=== PATIENT | female | born 1990 | race Hispanic/Latino ===

== ENCOUNTER 2016-10-11 21:45 | Inpatient (IN) | payer OTHER ==
[2016-10-11 22:37] LABS: RBC URINE 9 /hpf (0-3); TRANSITIONAL EPITHIAL < 1 /hpf (0-3); URINE BACTERIA OCC (<OCC); URINE BILIRUBIN NEGATIVE (NEGATIVE); URINE BLOOD 1+ (NEGATIVE); URINE COLOR Yellow (YELLOW); URINE GLUCOSE (UA) NORMAL (Normal); URINE KETONE TRACE mg/dL (NEGATIVE); URINE PROTEIN NEGATIVE (NEGATIVE); URINE UROBILINOGEN NORMAL mg/dL (0.2-1.0); WBC URINE 9 /hpf (0-5)
[2016-10-11 22:40] LABS: URINE LEUKOCYTE ESTERASE 1+ Leu/uL (Negative)
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
[2016-10-11] MEDS ORDERED: Sodium Chloride 0.9% 1,000 ML IV ONE (22:49)
[2016-10-11 23:46] LABS: CHLORIDE 99 mmol/L (98-107); INR 1.2
[2016-10-11 23:47] LABS: POTASSIUM 4.2 mmol/L (3.6-5.2); SODIUM 141 mmol/L (132-148)
[2016-10-11 23:49] LABS: ALB/GLOB RATIO 1.1 (1.0-2.1); AST/SGOT 24 U/L (14-36); BILIRUBIN,TOTAL 0.5 mg/dL (0.2-1.3); CARBON DIOXIDE 25 mmol/L (22-30); GFR AFRICAN-AMERICAN > 60; TOTAL PROTEIN 7.4 g/dL (6.3-8.3)
[2016-10-11 23:50] LABS: ALCOHOL SERUM < 10 mg/dl (0-10); ALKALINE PHOSPHATASE 65 U/L (38-126); ALT/SGPT 39 U/L (9-52); BLOOD UREA NITROGEN 15 mg/dL (7-17); CALCIUM 8.9 mg/dl (8.6-10.4); GLUCOSE,RANDOM 116 mg/dL (65-105)
[2016-10-12 00:03] LABS: BASO % 0.2 % (0.0-2.0); EOS # 0.1 K/uL (0.0-0.7); EOS % 0.4 % (0.0-4.0); HEMATOCRIT 40.2 % (34.0-47.0); LYMPH # 1.3 K/uL (1.0-4.3); LYMPH % 5.8 % (20.0-40.0); MEAN CELL VOLUME 80.8 fL (81.0-99.0); MEAN CORPUSCULAR HEMOGLOBIN 26.1 pg (27.0-31.0); MEAN CORPUSCULAR HGB CONC 32.3 g/dL (33.0-37.0); MEAN PLATELET VOLUME 8.2 fL (7.2-11.7); MONO # 0.7 K/uL (0.0-0.8); MONO % 3.3 % (0.0-10.0); PLATELET COUNT 521 K/uL (130-400); RED CELL DISTRIBUTION WIDTH 15.1 % (11.5-14.5)
[2016-10-12] MEDS ORDERED: Morphine 4 MG/ML VIAL ONE ×5 (00:46→21:14)
[2016-10-12] MEDS ORDERED: Iodixanol 320 MG/ML 100 ML BOTTLE IV ONE (01:34)
[2016-10-12 01:52] LABS: METAMYELOCYTE 1 % (0-0); NEUTROPHIL 91 % (50-75); TOTAL CELLS COUNTED 100
--- NOTE | 2016-10-12 02:45 | CT ---
EXAM: CT Abdomen and Pelvis With Intravenous Contrast CLINICAL HISTORY: 26 years old, female; Pain; Abdominal pain and other: Pancreatitis, ? pseudocyst; Patient HX: 02-25-16 TECHNIQUE: Axial computed tomography images of the abdomen and pelvis with intravenous contrast. This CT exam was performed using one or more of the following dose reduction techniques: automated exposure control, adjustment of the mA and/or kV according to patient size, and/or use of iterative reconstruction technique. Coronal and sagittal reformatted images were created and reviewed. CONTRAST: 100 mL of [id number] administered intravenously. COMPARISON: No relevant prior studies available. FINDINGS: Lower thorax: The bilateral lung bases are clear. ABDOMEN: Liver: No acute findings. Gallbladder and bile ducts: The gallbladder is decompressed. No calcified stones. No significant intrahepatic biliary ductal dilation. Pancreas: Originating in the head of the pancreas, and extending anteriorly is an irregular thickwalled multilobulated focus of fluid attenuation with surrounding free fluid and inflammatory change. This focus measures 65.5 x 59.5 mm (anterior-posterior by medial to lateral dimension). No significant pancreatic ductal enlargement. Limited evaluation of the common bile duct. Spleen: No acute findings. Adrenals: No acute findings. Kidneys and ureters: No acute findings. No hydronephrosis or renal calculi. No discrete solid mass. Subcentimeter foci of fluid attenuation within the right kidney, statistically representing cysts. PELVIS: Bladder: No acute findings. Reproductive: No acute findings. Appendix: The air filled appendix is of normal caliber (series 2, image 54; series 601, image 46) . ABDOMEN and PELVIS: Stomach and bowel: No obstruction. No mucosal thickening. Peritoneum: As above. Lymph nodes: No pathologically enlarged lymph nodes. Vasculature: Unremarkable. Bones: No acute fracture. IMPRESSION: Findings along the head of the pancreas suggesting immature pseudocyst formation, as detailed above
[2016-10-12] MEDS ORDERED: Dextrose 5%/0.45% NS 1,000 ML IV ONE (03:15)
[2016-10-12] MEDS ORDERED: Dextrose 5%/0.45% NS 1,000 ML IV SCH (03:15)
[2016-10-12 07:24] LABS: CHOLESTEROL 114 mg/dL (0-199)
[2016-10-12] MEDS ORDERED: Lactated Ringer's 1,000 ML ONE (10:10)
[2016-10-12] MEDS: Enoxaparin 40 mg Syringe SC SCH (10:20)
[2016-10-12] MEDS: Lactated Ringer's 1,000 ML IV SCH ×3 (10:25→19:19)
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
[2016-10-12] MEDS: Aztreonam 1 GM in Sodium Chloride 0.9% 100 ML IVPB SCH ×2 (15:45→22:11)
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
[2016-10-12] MEDS: metroNIDAZOLE IV 500 mg/100 ml 500 MG/100 ML BAG IVPB SCH (19:35)
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
[2016-10-13] MEDS ORDERED: Morphine 4 MG/ML VIAL ONE (02:11)
[2016-10-13] MEDS: Morphine 4 MG/ML VIAL IVP PRN ×5 (02:12→23:13)
[2016-10-13] MEDS: metroNIDAZOLE IV 500 mg/100 ml 500 MG/100 ML BAG IVPB SCH ×3 (02:16→18:55)
[2016-10-13] MEDS: Lactated Ringer's 1,000 ML IV SCH ×2 (05:33→18:17)
[2016-10-13] MEDS: Aztreonam 1 GM in Sodium Chloride 0.9% 100 ML IVPB SCH ×3 (06:19→22:01)
[2016-10-13 08:27] LABS: CHLORIDE 100 mmol/L (98-107); POTASSIUM 3.6 mmol/L (3.6-5.2); SODIUM 137 mmol/L (132-148)
[2016-10-13 08:28] LABS: BASO % 0.4 % (0.0-2.0); EOS # 0.2 K/uL (0.0-0.7); EOS % 1.8 % (0.0-4.0); HEMATOCRIT 31.9 % (34.0-47.0); LYMPH # 1.7 K/uL (1.0-4.3); LYMPH % 15.8 % (20.0-40.0); MEAN CELL VOLUME 80.2 fL (81.0-99.0); MEAN CORPUSCULAR HEMOGLOBIN 26.8 pg (27.0-31.0); MEAN CORPUSCULAR HGB CONC 33.5 g/dL (33.0-37.0); MONO # 0.9 K/uL (0.0-0.8); MONO % 7.9 % (0.0-10.0); RED CELL DISTRIBUTION WIDTH 14.8 % (11.5-14.5)
[2016-10-13 08:29] LABS: ALB/GLOB RATIO 0.9 (1.0-2.1); ALKALINE PHOSPHATASE 45 U/L (38-126); AST/SGOT 16 U/L (14-36); BILIRUBIN,TOTAL 0.5 mg/dL (0.2-1.3); BLOOD UREA NITROGEN 7 mg/dL (7-17); CARBON DIOXIDE 26 mmol/L (22-30); GFR AFRICAN-AMERICAN > 60; TOTAL PROTEIN 5.5 g/dL (6.3-8.3)
[2016-10-13 08:30] LABS: ALT/SGPT 32 U/L (9-52); CALCIUM 7.9 mg/dl (8.6-10.4); GLUCOSE,RANDOM 94 mg/dL (65-105)
[2016-10-13] MEDS: Enoxaparin 40 mg Syringe SC SCH (09:45)
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
[2016-10-13] MEDS: POLYETHYLENE GLYCOL 3350 17 GM/Dose PACKET PO SCH (12:00)
--- NOTE | 2016-10-13 13:39 | RAD ---
HISTORY: COMPARISON: No prior. TECHNIQUE: Chest PA and lateral FINDINGS: LINES AND TUBES: None. LUNG AND PLEURA: There is left lower lobe airspace disease and small left pleural effusion. The right lung is clear. There is no pneumothorax. HEART AND MEDIASTINUM: The heart is not enlarged. The hilar and mediastinal contours are within normal limits. SKELETAL STRUCTURES: The bony structures are within normal limits for the patient's age. VISUALIZED UPPER ABDOMEN: Normal. OTHER FINDINGS: None. IMPRESSION: Left lower lobe pneumonia and small left pleural effusion. Follow-up after medical management is recommended to ensure complete resolution.
--- NOTE | 2016-10-13 22:31 | CP.PCM.PN ---
Subjective - Date & Time of Evaluation Date of Evaluation: 10/13/16 Time of Evaluation: 15:25 - Subjective Subjective: Pt seen and evalauted still c/o periumbilical pain Objective - Vital Signs/Intake and Output Vital Signs (last 24 hours): Temp Pulse Resp BP Pulse Ox 98.6 F 70 20 94/67 L 96 10/13/16 16:58 10/13/16 16:58 10/13/16 16:58 10/13/16 16:58 10/13/16 16:58 Intake and Output: 10/13/16 10/14/16 18:59 06:59 Intake Total 1300 1400 Balance 1300 1400 - Medications Medications: Current Medications Enoxaparin Sodium (Lovenox) 40 mg SC DAILY [facility] Last Admin: 10/13/16 09:45 Dose: 40 mg Famotidine (Pepcid) 20 mg IVP Q12 [facility] Last Admin: 10/13/16 21:12 Dose: 20 mg Lactated Ringer's (Lactated Ringer's) 1,000 mls @ 200 mls/hr IV .Q5H [facility] Last Admin: 10/13/16 18:17 Dose: 200 mls/hr Aztreonam 1 gm/ Sodium (Chloride) 100 mls @ 100 mls/hr IVPB Q8H [facility] Last Admin: 10/13/16 22:01 Dose: 100 mls/hr Metronidazole (Flagyl) 500 mg in 100 mls @ 100 mls/hr IVPB Q8H [facility] Last Admin: 10/13/16 18:55 Dose: 100 mls/hr Metoclopramide HCl (Reglan) 10 mg IVP Q8 PRN PRN Reason: Nausea/Vomiting Last Admin: 10/12/16 16:57 Dose: 10 mg Morphine Sulfate (Morphine) 2 mg IVP Q4 PRN PRN Reason: Pain, severe (8-10) Last Admin: 10/13/16 19:19 Dose: 2 mg Ondansetron HCl (Zofran Inj) 4 mg IVP Q4H PRN PRN Reason: Nausea/Vomiting Last Admin: 10/13/16 06:22 Dose: 4 mg Polyethylene Glycol (Miralax) 17 gm PO DAILY [facility] Last Admin: 10/13/16 12:00 Dose: 17 gm - Labs Labs: 10/13/16 08:04 10/13/16 08:04 PT 13.6 SECONDS (9.7-12.2) H 10/11/16 23:34 INR 1.2 10/11/16 23:34 APTT 28 SECONDS (21-34) 10/11/16 23:34
[2016-10-14] MEDS: metroNIDAZOLE IV 500 mg/100 ml 500 MG/100 ML BAG IVPB SCH ×3 (01:42→17:38)
[2016-10-14] MEDS: Lactated Ringer's 1,000 ML IV SCH ×3 (01:43→16:54)
[2016-10-14] MEDS: Morphine 4 MG/ML VIAL IVP PRN ×5 (03:55→21:51)
[2016-10-14] MEDS: Aztreonam 1 GM in Sodium Chloride 0.9% 100 ML IVPB SCH ×3 (06:04→22:22)
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
[2016-10-14] MEDS: POLYETHYLENE GLYCOL 3350 17 GM/Dose PACKET PO SCH (10:45)
[2016-10-14] MEDS: Enoxaparin 40 mg Syringe SC SCH (10:45)
[2016-10-14 11:28] LABS: BASO % 0.5 % (0.0-2.0); EOS # 0.2 K/uL (0.0-0.7); EOS % 2.2 % (0.0-4.0); HEMATOCRIT 33.9 % (34.0-47.0); LYMPH # 1.1 K/uL (1.0-4.3); LYMPH % 12.1 % (20.0-40.0); MEAN CELL VOLUME 80.8 fL (81.0-99.0); MEAN CORPUSCULAR HEMOGLOBIN 26.9 pg (27.0-31.0); MEAN CORPUSCULAR HGB CONC 33.3 g/dL (33.0-37.0); MEAN PLATELET VOLUME 8.1 fL (7.2-11.7); MONO # 0.6 K/uL (0.0-0.8); MONO % 7.3 % (0.0-10.0); WHITE BLOOD COUNT 8.8 K/uL (4.8-10.8)
[2016-10-14 11:34] LABS: CHLORIDE 98 mmol/L (98-107); POTASSIUM 3.5 mmol/L (3.6-5.2); SODIUM 138 mmol/L (132-148)
[2016-10-14 11:37] LABS: BLOOD UREA NITROGEN 4 mg/dL (7-17); CARBON DIOXIDE 28 mmol/L (22-30); GFR AFRICAN-AMERICAN > 60
[2016-10-14 11:38] LABS: CALCIUM 8.3 mg/dl (8.6-10.4); GLUCOSE,RANDOM 105 mg/dL (65-105)
--- NOTE | 2016-10-14 13:56 | CP.PCM.PN ---
Subjective - Date & Time of Evaluation Date of Evaluation: 10/14/16 Time of Evaluation: 13:56 - Subjective Subjective: CHIEF COMPLAINTS TODAY : afebrile Still has abd pain LUQ and epigastric area tolerating liquid diet Denies having a BM ROS HEENT : N. Resp : No SOB wheezing, cough Cardio : No CP, PND orthopnea GI : +VE ABDOMINAL PAIN, NO n/v CANDLE WICKER : No headache , focal deficit. Musculoskel : N Ext. : Pedal pulses intact, no edema or calf pain Derm : N Psych : N. PE. Pt. is alert awake in no distress. V.S As noted in the chart Head ,ear nose,throat and eyes : Normal. Neck : Supple with normal carotids. Lungs: Clear air entry. Heart : S1 & S2 normal . . No murmur. S4 + Abd : Soft tender +VE ABDOMINAL PAIN.LUQ,EPIGASTRIUM. Neuro : Moves all ext. with no localized deficit. Ext : No edema with intact pulses. Neg. calf tenderness Derm : No rashes or decubitus ulcer. Radiology/Labs . wbc 8.8 h/h 11.3/33.9 plt 319. ESR .30. CREAT 0.6/BUN 4 CXR 10/12 left lower lobe pneumonia with small left pleural effusion. Objective - Vital Signs/Intake and Output Vital Signs (last 24 hours): Temp Pulse Resp BP Pulse Ox 98.7 F 79 18 102/68 99 10/14/16 07:20 10/14/16 07:20 10/14/16 07:20 10/14/16 07:20 10/14/16 07:20 Intake and Output: 10/14/16 10/14/16 06:59 18:59 Intake Total 1400 Balance 1400 - Medications Medications: Current Medications Enoxaparin Sodium (Lovenox) 40 mg SC DAILY [facility] Last Admin: 10/14/16 10:45 Dose: 40 mg Famotidine (Pepcid) 20 mg IVP Q12 [facility] Last Admin: 10/14/16 10:45 Dose: 20 mg Lactated Ringer's (Lactated Ringer's) 1,000 mls @ 200 mls/hr IV .Q5H [facility] Last Admin: 10/14/16 05:15 Dose: Not Given Aztreonam 1 gm/ Sodium (Chloride) 100 mls @ 100 mls/hr IVPB Q8H [facility] Last Admin: 10/14/16 06:04 Dose: 100 mls/hr Metronidazole (Flagyl) 500 mg in 100 mls @ 100 mls/hr IVPB Q8H [facility] Last Admin: 10/14/16 11:05 Dose: 100 mls/hr Metoclopramide HCl (Reglan) 10 mg IVP Q8 PRN PRN Reason: Nausea/Vomiting Last Admin: 10/12/16 16:57 Dose: 10 mg Morphine Sulfate (Morphine) 2 mg IVP Q4 PRN PRN Reason: Pain, severe (8-10) Last Admin: 10/14/16 12:48 Dose: 2 mg Ondansetron HCl (Zofran Inj) 4 mg IVP Q4H PRN PRN Reason: Nausea/Vomiting Last Admin: 10/13/16 06:22 Dose: 4 mg Polyethylene Glycol (Miralax) 17 gm PO DAILY [facility] Last Admin: 10/14/16 10:45 Dose: Not Given - Labs Labs: 10/14/16 11:22 10/14/16 11:22 PT 13.6 SECONDS (9.7-12.2) H 10/11/16 23:34 INR 1.2 10/11/16 23:34 APTT 28 SECONDS (21-34) 10/11/16 23:34 Assessment and Plan (1) Abdominal pain Status: Acute (2) Acute pancreatitis Status: Acute (3) Nausea Status: Acute (4) Vomiting Status: Acute - Assessment and Plan (Free Text) Assessment: IMPRESSION; ABDOMINAL PAIN ACUTE PANCREATITIS MATURING PSEUDOCYST LEFT LOWER LOBE PNEUMONIA/EFFUSION.. UTI.( +VE GPC ) PLAN; CONTINUE IV AZACTAM 1GM IV Q 8HRLY. 10/12/16. ON IV FLAGYL FOR ANAEROBIC COVERAGE.10/12/16. add iv vancomycin 1 g IV piggyback once a day daily. 10/14/16 Follow-up Vanco trough level prior to the fourth dose. Monitor renal functions closely. Follow-up chest x-ray for clearing. FOLLOW-UP CULTURES TO ADJUST ANTIBIOTICS. Case discussed with the staff.
--- NOTE | 2016-10-14 23:37 | CP.PCM.PN ---
Subjective - Date & Time of Evaluation Date of Evaluation: 10/14/16 Time of Evaluation: 09:00 - Subjective Subjective: afebrile Still has abd pain LUQ and epigastric area tolerating liquid diet Denies having a BM Objective - Vital Signs/Intake and Output Vital Signs (last 24 hours): Temp Pulse Resp BP Pulse Ox 97.4 F L 75 20 102/68 93 L 10/14/16 16:18 10/14/16 16:18 10/14/16 16:18 10/14/16 16:18 10/14/16 16:18 Intake and Output: 10/14/16 10/15/16 18:59 06:59 Intake Total 600 Balance 600 - Medications Medications: Current Medications Enoxaparin Sodium (Lovenox) 40 mg SC DAILY [facility] Last Admin: 10/14/16 10:45 Dose: 40 mg Famotidine (Pepcid) 20 mg IVP Q12 [facility] Last Admin: 10/14/16 21:50 Dose: 20 mg Lactated Ringer's (Lactated Ringer's) 1,000 mls @ 200 mls/hr IV .Q5H [facility] Last Admin: 10/14/16 16:54 Dose: 200 mls/hr Aztreonam 1 gm/ Sodium (Chloride) 100 mls @ 100 mls/hr IVPB Q8H [facility] Last Admin: 10/14/16 22:22 Dose: 100 mls/hr Metronidazole (Flagyl) 500 mg in 100 mls @ 100 mls/hr IVPB Q8H [facility] Last Admin: 10/14/16 17:38 Dose: 100 mls/hr Vancomycin/Sodium Chloride (Vancocin) 1 gm in 200 mls @ 133 mls/hr IVPB Q24H [facility] Stop: 10/19/16 23:01 Metoclopramide HCl (Reglan) 10 mg IVP Q8 PRN PRN Reason: Nausea/Vomiting Last Admin: 10/12/16 16:57 Dose: 10 mg Morphine Sulfate (Morphine) 2 mg IVP Q4 PRN PRN Reason: Pain, severe (8-10) Last Admin: 10/14/16 21:51 Dose: 2 mg Ondansetron HCl (Zofran Inj) 4 mg IVP Q4H PRN PRN Reason: Nausea/Vomiting Last Admin: 10/14/16 18:24 Dose: 4 mg Polyethylene Glycol (Miralax) 17 gm PO DAILY [facility] Last Admin: 10/14/16 10:45 Dose: Not Given - Labs Labs: 10/14/16 11:22 10/14/16 11:22 PT 13.6 SECONDS (9.7-12.2) H 10/11/16 23:34 INR 1.2 10/11/16 23:34 APTT 28 SECONDS (21-34) 10/11/16 23:34
[2016-10-14] MEDS: Vancomycin 1 gm/NS 200 ml 1 GM/200 ML BAG IVPB SCH (23:43)
[2016-10-15] MEDS: Lactated Ringer's 1,000 ML IV SCH ×4 (01:15→18:46)
[2016-10-15] MEDS: Morphine 4 MG/ML VIAL IVP PRN ×2 (02:02→06:19)
[2016-10-15] MEDS: metroNIDAZOLE IV 500 mg/100 ml 500 MG/100 ML BAG IVPB SCH ×3 (02:05→17:37)
[2016-10-15] MEDS: Aztreonam 1 GM in Sodium Chloride 0.9% 100 ML IVPB SCH ×3 (06:25→22:31)
[2016-10-15 06:32] LABS: BASO % 0.6 % (0.0-2.0); EOS # 0.2 K/uL (0.0-0.7); EOS % 2.7 % (0.0-4.0); HEMATOCRIT 32.8 % (34.0-47.0); LYMPH # 1.1 K/uL (1.0-4.3); LYMPH % 15.4 % (20.0-40.0); MEAN CELL VOLUME 79.8 fL (81.0-99.0); MEAN CORPUSCULAR HEMOGLOBIN 26.9 pg (27.0-31.0); MEAN CORPUSCULAR HGB CONC 33.7 g/dL (33.0-37.0); MONO # 0.5 K/uL (0.0-0.8); MONO % 7.1 % (0.0-10.0); RED CELL DISTRIBUTION WIDTH 14.9 % (11.5-14.5); WHITE BLOOD COUNT 7.2 K/uL (4.8-10.8)
[2016-10-15 06:44] LABS: ALB/GLOB RATIO 1.3 (1.0-2.1); ALKALINE PHOSPHATASE 76 U/L (38-126); ALT/SGPT 35 U/L (9-52); AST/SGOT 28 U/L (14-36); BILIRUBIN,DIRECT 0.3 mg/dL (0.0-0.4); BILIRUBIN,TOTAL 0.4 mg/dL (0.2-1.3); BLOOD UREA NITROGEN 5 mg/dL (7-17); CALCIUM 8.1 mg/dl (8.6-10.4); CARBON DIOXIDE 25 mmol/L (22-30); CHLORIDE 98 mmol/L (98-107); GFR AFRICAN-AMERICAN > 60; GLUCOSE,RANDOM 79 mg/dL (65-105); POTASSIUM 3.6 mmol/L (3.6-5.2); SODIUM 136 mmol/L (132-148); TOTAL PROTEIN 5.4 g/dL (6.3-8.3)
[2016-10-15] MEDS: Enoxaparin 40 mg Syringe SC SCH (09:34)
[2016-10-15] MEDS: POLYETHYLENE GLYCOL 3350 17 GM/Dose PACKET PO SCH (09:35)
--- NOTE | 2016-10-15 09:38 | CP.PCM.PN ---
Subjective - Date & Time of Evaluation Date of Evaluation: 10/15/16 Time of Evaluation: 09:29 - Subjective Subjective: Patient seen and examined. No acute events overnight, she is seen resting in bed comfortably. She continues to endorse severe generalized abdominal pain, 9/ 10 intensity and lack of appetite. She denies nausea, vomiting, fever/chills. Review of vitals from today are normal. 12 point review of systems performed, negative aside from mentioned above. Objective - Vital Signs/Intake and Output Vital Signs (last 24 hours): Temp Pulse Resp BP Pulse Ox 98.3 F 68 18 99/61 L 98 10/15/16 08:43 10/15/16 08:43 10/15/16 08:43 10/15/16 08:43 10/15/16 08:43 - Medications Medications: Current Medications Enoxaparin Sodium (Lovenox) 40 mg SC DAILY [facility] [place] Last Admin: 10/14/16 10:45 Dose: 40 mg Famotidine (Pepcid) 20 mg IVP Q12 [facility] Last Admin: 10/14/16 21:50 Dose: 20 mg Aztreonam 1 gm/ Sodium (Chloride) 100 mls @ 100 mls/hr IVPB Q8H [facility] [place] Last Admin: 10/15/16 06:25 Dose: 100 mls/hr Metronidazole (Flagyl) 500 mg in 100 mls @ 100 mls/hr IVPB Q8H [facility] [place] Last Admin: 10/15/16 02:05 Dose: 100 mls/hr Vancomycin/Sodium Chloride (Vancocin) 1 gm in 200 mls @ 133 mls/hr IVPB Q24H [facility] [place] Stop: 10/19/16 23:01 Last Admin: 10/14/16 23:43 Dose: 133 mls/hr Metoclopramide HCl (Reglan) 10 mg IVP Q8 PRN PRN Reason: Nausea/Vomiting Last Admin: 10/12/16 16:57 Dose: 10 mg Morphine Sulfate (Morphine) 2 mg IVP Q4 PRN PRN Reason: Pain, severe (8-10) Last Admin: 10/15/16 06:19 Dose: 2 mg Ondansetron HCl (Zofran Inj) 4 mg IVP Q4H PRN PRN Reason: Nausea/Vomiting Last Admin: 10/14/16 18:24 Dose: 4 mg Polyethylene Glycol (Miralax) 17 gm PO DAILY [facility] Last Admin: 10/14/16 10:45 Dose: Not Given - Labs Labs: 10/15/16 06:22 10/15/16 06:22 PT 13.6 SECONDS (9.7-12.2) H 10/11/16 23:34 INR 1.2 10/11/16 23:34 APTT 28 SECONDS (21-34) 10/11/16 23:34 - Constitutional Appears: Non-toxic, No Acute Distress - Head Exam Head Exam: NORMAL INSPECTION - Eye Exam Eye Exam: EOMI, Normal appearance - ENT Exam ENT Exam: Mucous Membranes Moist - Respiratory Exam Respiratory Exam: Clear to Ausculation Bilateral - Cardiovascular Exam Cardiovascular Exam: REGULAR RHYTHM, +S1, +S2 - GI/Abdominal Exam GI & Abdominal Exam: Soft, Tenderness, Normal Bowel Sounds Additional comments: generalized tenderness to palpation, most prominent in liliane-umbilical region with +guarding - Extremities Exam Extremities Exam: Normal Inspection - Skin Skin Exam: Dry, Intact, Normal Color, Warm Assessment and Plan - Assessment and Plan (Free Text) Assessment: Abdominal pain - acute pancreatitis - etiology unclear CT imaging reviewed by me showing multilobulated liliane-pancreatic fluid collection near head without PD dilation UTI Pneumonia Plan: - Continue with liquid diet as tolerated - Pain control - Continue with antibiotic therapy as per ID - Awaiting IGG4 results - Patient is unlikely candidate for FNA of liliane-pancreatic fluid collection due to immature pseudocyst formation, though will discuss with Dr. Nunez - Genetic hereditary pancreatitis testing should be considered as an outpatient - Will continue to monitor patient clinical course
[2016-10-15] MEDS ORDERED: Morphine 4 MG/ML VIAL IVP PRN (11:13)
[2016-10-15] MEDS: Morphine 4 MG/ML VIAL IV PRN ×3 (11:46→20:41)
--- NOTE | 2016-10-15 12:00 | CP.PCM.PN ---
Subjective - Date & Time of Evaluation Date of Evaluation: 10/15/16 Time of Evaluation: 12:00 - Subjective Subjective: CHIEF COMPLAINTS TODAY : afebrile Still has abd pain LUQ and epigastric area tolerating liquid diet DENIES SHORTNESS OF BREATH OR COUGH dENIES CHEST PAIN ROS HEENT : N. 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 Musculoskel : N Ext. : Pedal pulses intact, no edema or calf pain Derm : N Psych : N. PE. Pt. is alert awake in no distress. V.S As noted in the chart Head ,ear nose,throat and eyes : Normal. Neck : Supple with normal carotids. Lungs: DIMINISHED BREATH SOUNDS AT THE BASES Heart : S1 & S2 normal . . No murmur. S4 + Abd : Soft tender +VE ABDOMINAL PAIN.LUQ,EPIGASTRIUM. Neuro : Moves all ext. with no localized deficit. Ext : No edema with intact pulses. Neg. calf tenderness Derm : No rashes or decubitus ulcer. Radiology/Labs . urine culture positive for MRSA. LIPASE 3636. ESR .30. CREAT 0.6/BUN 4 CXR 10/12 left lower lobe pneumonia with small left pleural effusion. Objective - Vital Signs/Intake and Output Vital Signs (last 24 hours): Temp Pulse Resp BP Pulse Ox 98.3 F 68 18 99/61 L 98 10/15/16 08:43 10/15/16 08:43 10/15/16 08:43 10/15/16 08:43 10/15/16 08:43 - Medications Medications: Current Medications Enoxaparin Sodium (Lovenox) 40 mg SC DAILY [facility] Last Admin: 10/15/16 09:34 Dose: 40 mg Famotidine (Pepcid) 20 mg IVP Q12 [facility] Last Admin: 10/15/16 09:34 Dose: 20 mg Aztreonam 1 gm/ Sodium (Chloride) 100 mls @ 100 mls/hr IVPB Q8H [facility] Last Admin: 10/15/16 06:25 Dose: 100 mls/hr Metronidazole (Flagyl) 500 mg in 100 mls @ 100 mls/hr IVPB Q8H [facility] Last Admin: 10/15/16 09:35 Dose: 100 mls/hr Vancomycin/Sodium Chloride (Vancocin) 1 gm in 200 mls @ 133 mls/hr IVPB Q24H [facility] Stop: 10/19/16 23:01 Last Admin: 10/14/16 23:43 Dose: 133 mls/hr Metoclopramide HCl (Reglan) 10 mg IVP Q8 PRN PRN Reason: Nausea/Vomiting Last Admin: 10/12/16 16:57 Dose: 10 mg Morphine Sulfate (Morphine) 2 mg IV Q4 PRN PRN Reason: Pain, severe (8-10) Last Admin: 10/15/16 11:46 Dose: 2 mg Ondansetron HCl (Zofran Inj) 4 mg IVP Q4H PRN PRN Reason: Nausea/Vomiting Last Admin: 10/14/16 18:24 Dose: 4 mg Polyethylene Glycol (Miralax) 17 gm PO DAILY [facility] Last Admin: 10/15/16 09:35 Dose: Not Given - Labs Labs: 10/15/16 06:22 10/15/16 06:22 PT 13.6 SECONDS (9.7-12.2) H 10/11/16 23:34 INR 1.2 10/11/16 23:34 APTT 28 SECONDS (21-34) 10/11/16 23:34 Assessment and Plan (1) Abdominal pain Status: Acute (2) Acute pancreatitis Status: Acute (3) Nausea Status: Acute (4) Vomiting Status: Acute - Assessment and Plan (Free Text) Assessment: IMPRESSION; ABDOMINAL PAIN ACUTE PANCREATITIS MATURING PSEUDOCYST LEFT LOWER LOBE PNEUMONIA/EFFUSION.. UTI.( +VE mrsa) PLAN; CONTINUE IV AZACTAM 1GM IV Q 8HRLY. 10/12/16. ON IV FLAGYL FOR ANAEROBIC COVERAGE.10/12/16. ON IV VANCOMYCIN 1 G ONCE A DAY DAILY STARTED 10/14/16 Follow-up Vanco trough level prior to the fourth dose. Monitor renal functions closely. CONTACT PRECAUTIONS. CASE DISCUSSED WITH THE STAFF. Follow-up chest x-ray for clearing. FOLLOW-UP CULTURES TO ADJUST ANTIBIOTICS.
[2016-10-15] MEDS: Vancomycin 1 gm/NS 200 ml 1 GM/200 ML BAG IVPB SCH (23:58)
[2016-10-16] MEDS: Morphine 4 MG/ML VIAL IV PRN ×5 (00:55→20:35)
[2016-10-16] MEDS: Lactated Ringer's 1,000 ML IV SCH ×3 (02:10→20:34)
[2016-10-16] MEDS: metroNIDAZOLE IV 500 mg/100 ml 500 MG/100 ML BAG IVPB SCH ×3 (02:11→17:37)
[2016-10-16] MEDS: Aztreonam 1 GM in Sodium Chloride 0.9% 100 ML IVPB SCH ×3 (06:06→22:12)
--- NOTE | 2016-10-16 08:22 | CP.PCM.PN ---
Subjective - Date & Time of Evaluation Date of Evaluation: 10/15/16 Time of Evaluation: 21:20 - Subjective Subjective: Pt seen and examined is on antibiotics Objective - Vital Signs/Intake and Output Vital Signs (last 24 hours): Temp Pulse Resp BP Pulse Ox 98.2 F 73 20 107/71 96 10/16/16 04:20 10/16/16 04:20 10/16/16 04:20 10/16/16 04:20 10/16/16 04:20 Intake and Output: 10/16/16 10/16/16 06:59 18:59 Intake Total 1300 Balance 1300 - Medications Medications: Current Medications Enoxaparin Sodium (Lovenox) 40 mg SC DAILY [facility] Last Admin: 10/15/16 09:34 Dose: 40 mg Famotidine (Pepcid) 20 mg IVP Q12 [facility] Last Admin: 10/15/16 22:32 Dose: 20 mg Aztreonam 1 gm/ Sodium (Chloride) 100 mls @ 100 mls/hr IVPB Q8H [facility] Last Admin: 10/16/16 06:06 Dose: 100 mls/hr Metronidazole (Flagyl) 500 mg in 100 mls @ 100 mls/hr IVPB Q8H [facility] Last Admin: 10/16/16 02:11 Dose: 100 mls/hr Vancomycin/Sodium Chloride (Vancocin) 1 gm in 200 mls @ 133 mls/hr IVPB Q24H [facility] Stop: 10/19/16 23:01 Last Admin: 10/15/16 23:58 Dose: 133 mls/hr Metoclopramide HCl (Reglan) 10 mg IVP Q8 PRN PRN Reason: Nausea/Vomiting Last Admin: 10/12/16 16:57 Dose: 10 mg Morphine Sulfate (Morphine) 3 mg IV Q4 PRN PRN Reason: Pain, severe (8-10) Last Admin: 10/16/16 05:19 Dose: 3 mg Ondansetron HCl (Zofran Inj) 4 mg IVP Q4H PRN PRN Reason: Nausea/Vomiting Last Admin: 10/14/16 18:24 Dose: 4 mg Polyethylene Glycol (Miralax) 17 gm PO DAILY [facility] Last Admin: 10/15/16 09:35 Dose: Not Given - Labs Labs: 10/15/16 06:22 10/15/16 06:22 PT 13.6 SECONDS (9.7-12.2) H 10/11/16 23:34 INR 1.2 10/11/16 23:34 APTT 28 SECONDS (21-34) 10/11/16 23:34 - Constitutional Appears: No Acute Distress - Head Exam Head Exam: ATRAUMATIC, NORMAL INSPECTION, NORMOCEPHALIC - Eye Exam Eye Exam: EOMI, Normal appearance, PERRL Pupil Exam: NORMAL ACCOMODATION, PERRL - Respiratory Exam Respiratory Exam: Clear to Ausculation Bilateral, NORMAL BREATHING PATTERN - Cardiovascular Exam Cardiovascular Exam: REGULAR RHYTHM, +S1, +S2. absent: Murmur - GI/Abdominal Exam GI & Abdominal Exam: Tenderness - Rectal Exam Rectal Exam: Deferred Assessment and Plan (1) Abdominal pain Assessment & Plan: IMPRESSION; ABDOMINAL PAIN ACUTE PANCREATITIS MATURING PSEUDOCYST LEFT LOWER LOBE PNEUMONIA/EFFUSION.. UTI.( +VE mrsa) PLAN; CONTINUE IV AZACTAM 1GM IV Q 8HRLY. 10/12/16. ON IV FLAGYL FOR ANAEROBIC COVERAGE.10/12/16. ON IV VANCOMYCIN 1 G ONCE A DAY DAILY STARTED 10/14/16 Follow-up Vanco trough level prior to the fourth dose. Monitor renal functions closely. CONTACT PRECAUTIONS. CASE DISCUSSED WITH THE STAFF. Follow-up chest x-ray for clearing. FOLLOW-UP CULTURES TO ADJUST ANTIBIOTICS. Status: Acute (2) Acute pancreatitis Status: Acute (3) Diarrhea Status: Acute (4) Nausea Status: Acute
[2016-10-16] MEDS: POLYETHYLENE GLYCOL 3350 17 GM/Dose PACKET PO SCH (10:05)
[2016-10-16] MEDS: Enoxaparin 40 mg Syringe SC SCH (10:05)
[2016-10-16] MEDS ORDERED: Propofol 10 mg/ml Inj (20 ML) ONE ×2 (14:20→14:55)
[2016-10-16] MEDS ORDERED: Midazolam 2 MG/2 ML VIAL ONE (14:21)
--- NOTE | 2016-10-16 15:59 | CP.PCM.PN ---
Subjective - Date & Time of Evaluation Date of Evaluation: 10/16/16 Time of Evaluation: 15:58 - Subjective Subjective: CHIEF COMPLAINTS TODAY : afebrile Still has abd pain LUQ and epigastric area SEEN S/P EUS TODAY 10/16/16 ROS HEENT : N. 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 Musculoskel : N Ext. : Pedal pulses intact, no edema or calf pain Derm : N Psych : N. PE. Pt. is alert awake in no distress. V.S As noted in the chart Head ,ear nose,throat and eyes : Normal. Neck : Supple with normal carotids. Lungs: DIMINISHED BREATH SOUNDS AT THE BASES Heart : S1 & S2 normal . . No murmur. S4 + Abd : Soft tender +VE ABDOMINAL PAIN.LUQ,EPIGASTRIUM. Neuro : Moves all ext. with no localized deficit. Ext : No edema with intact pulses. Neg. calf tenderness Derm : No rashes or decubitus ulcer. Radiology/Labs . urine culture positive for MRSA. LIPASE 3636. ESR .30. CREAT 0.6/BUN 4 CXR 10/12 left lower lobe pneumonia with small left pleural effusion. Objective - Vital Signs/Intake and Output Vital Signs (last 24 hours): Temp Pulse Resp BP Pulse Ox 97 F L 89 21 129/69 100 10/16/16 14:23 10/16/16 15:55 10/16/16 15:55 10/16/16 15:55 10/16/16 15:55 Intake and Output: 10/16/16 10/16/16 06:59 18:59 Intake Total 1300 1800 Balance 1300 1800 - Medications Medications: Current Medications Enoxaparin Sodium (Lovenox) 40 mg SC DAILY [facility] Last Admin: 10/16/16 10:05 Dose: Not Given Famotidine (Pepcid) 20 mg IVP Q12 [facility] Last Admin: 10/16/16 09:59 Dose: 20 mg Aztreonam 1 gm/ Sodium (Chloride) 100 mls @ 100 mls/hr IVPB Q8H [facility] Last Admin: 10/16/16 06:06 Dose: 100 mls/hr Metronidazole (Flagyl) 500 mg in 100 mls @ 100 mls/hr IVPB Q8H [facility] Last Admin: 10/16/16 09:56 Dose: 100 mls/hr Vancomycin/Sodium Chloride (Vancocin) 1 gm in 200 mls @ 133 mls/hr IVPB Q24H [facility] Stop: 10/19/16 23:01 Last Admin: 10/15/16 23:58 Dose: 133 mls/hr Metoclopramide HCl (Reglan) 10 mg IVP Q8 PRN PRN Reason: Nausea/Vomiting Last Admin: 10/12/16 16:57 Dose: 10 mg Morphine Sulfate (Morphine) 3 mg IV Q4 PRN PRN Reason: Pain, severe (8-10) Last Admin: 10/16/16 09:55 Dose: 3 mg Ondansetron HCl (Zofran Inj) 4 mg IVP Q4H PRN PRN Reason: Nausea/Vomiting Last Admin: 10/14/16 18:24 Dose: 4 mg Polyethylene Glycol (Miralax) 17 gm PO DAILY [facility] Last Admin: 10/16/16 10:05 Dose: Not Given - Labs Labs: 10/15/16 06:22 10/15/16 06:22 PT 13.6 SECONDS (9.7-12.2) H 10/11/16 23:34 INR 1.2 10/11/16 23:34 APTT 28 SECONDS (21-34) 10/11/16 23:34 Assessment and Plan (1) Abdominal pain Status: Acute (2) Acute pancreatitis Status: Acute (3) Nausea Status: Acute (4) Vomiting Status: Acute - Assessment and Plan (Free Text) Assessment: IMPRESSION; ABDOMINAL PAIN ACUTE PANCREATITIS MATURING PSEUDOCYST LEFT LOWER LOBE PNEUMONIA/EFFUSION.. UTI.( +VE mrsa) PLAN; F/U EUS FINDINGS PER GI. CONTINUE IV AZACTAM 1GM IV Q 8HRLY. 10/12/16. ON IV FLAGYL FOR ANAEROBIC COVERAGE.10/12/16. ON IV VANCOMYCIN 1 G ONCE A DAY DAILY STARTED 10/14/16 Follow-up Vanco trough level prior to the fourth dose. Monitor renal functions closely. CONTACT PRECAUTIONS. CASE DISCUSSED WITH THE STAFF. Follow-up chest x-ray for clearing.
--- NOTE | 2016-10-16 17:08 | US ---
HISTORY: eval gallbladder, saw sludge on EUS, eval pancreas COMPARISON: CT abdomen and pelvis from 10/12/2016 TECHNIQUE: Sonographic evaluation of the abdomen. FINDINGS: LIVER: Measures 12.8 cm. There is diffuse increased echogenicity of the liver parenchyma. No mass. No intrahepatic bile duct dilatation. GALLBLADDER: Gallbladder is filled with sludge. No definite evidence of gallstones, wall thickening or pericholecystic fluid. COMMON BILE DUCT: Measures 7.3 mm. No stones. No dilatation. PANCREAS: There is a 7.9 x 6.6 x 9.8 cm cyst with central thick linear increased echogenicity anteriorly in the head of the pancreas RIGHT KIDNEY: Measures 11.4cm. Normal echogenicity. No calculus, mass, or hydronephrosis. LEFT KIDNEY: Measures 11.8cm. Normal echogenicity. No calculus, mass, or hydronephrosis. SPLEEN: Normal in size and contour. No mass. AORTA: No aneurysmal dilatation. IVC: Unremarkable. OTHER FINDINGS: None. IMPRESSION: 1. 7.9 x 6.6 x 9.8 cm complex pseudocyst in the head of the pancreas. 2. Sludge filled gallbladder. 3. Fatty liver.
--- NOTE | 2016-10-16 22:54 | CP.PCM.PN ---
Subjective - Date & Time of Evaluation Date of Evaluation: 10/16/16 Time of Evaluation: 20:10 - Subjective Subjective: FEELS ABDOMINAL PAIN, NO NAUSEA, ON LIQUID DIET, NO FEVER, NO SOB Objective - Vital Signs/Intake and Output Vital Signs (last 24 hours): Temp Pulse Resp BP Pulse Ox 98.3 F 76 20 110/64 95 10/16/16 16:36 10/16/16 16:36 10/16/16 16:36 10/16/16 16:36 10/16/16 16:36 Intake and Output: 10/16/16 10/17/16 18:59 06:59 Intake Total 1800 Balance 1800 - Medications Medications: Current Medications Enoxaparin Sodium (Lovenox) 40 mg SC DAILY [facility] Last Admin: 10/16/16 10:05 Dose: Not Given Famotidine (Pepcid) 20 mg IVP Q12 [facility] Last Admin: 10/16/16 22:14 Dose: 20 mg Aztreonam 1 gm/ Sodium (Chloride) 100 mls @ 100 mls/hr IVPB Q8H [facility] Last Admin: 10/16/16 22:12 Dose: 100 mls/hr Metronidazole (Flagyl) 500 mg in 100 mls @ 100 mls/hr IVPB Q8H [facility] Last Admin: 10/16/16 17:37 Dose: 100 mls/hr Vancomycin/Sodium Chloride (Vancocin) 1 gm in 200 mls @ 133 mls/hr IVPB Q24H [facility] Stop: 10/19/16 23:01 Last Admin: 10/15/16 23:58 Dose: 133 mls/hr Metoclopramide HCl (Reglan) 10 mg IVP Q8 PRN PRN Reason: Nausea/Vomiting Last Admin: 10/12/16 16:57 Dose: 10 mg Morphine Sulfate (Morphine) 3 mg IV Q4 PRN PRN Reason: Pain, severe (8-10) Last Admin: 10/16/16 20:35 Dose: 3 mg Ondansetron HCl (Zofran Inj) 4 mg IVP Q4H PRN PRN Reason: Nausea/Vomiting Last Admin: 10/14/16 18:24 Dose: 4 mg Polyethylene Glycol (Miralax) 17 gm PO DAILY [facility] Last Admin: 10/16/16 10:05 Dose: Not Given - Labs Labs: 10/15/16 06:22 10/15/16 06:22 PT 13.6 SECONDS (9.7-12.2) H 10/11/16 23:34 INR 1.2 10/11/16 23:34 APTT 28 SECONDS (21-34) 10/11/16 23:34 - Constitutional Appears: Non-toxic, In Acute Distress - Head Exam Head Exam: ATRAUMATIC, NORMAL INSPECTION, NORMOCEPHALIC - Eye Exam Eye Exam: EOMI, Normal appearance, PERRL Pupil Exam: NORMAL ACCOMODATION - ENT Exam ENT Exam: Mucous Membranes Moist, Normal Exam, Normal Oropharynx, TM's Normal Bilaterally - Neck Exam Neck Exam: Normal Inspection - Respiratory Exam Respiratory Exam: Clear to Ausculation Bilateral, NORMAL BREATHING PATTERN - Cardiovascular Exam Cardiovascular Exam: REGULAR RHYTHM, +S1, +S2 - GI/Abdominal Exam GI & Abdominal Exam: Distended, Guarding, Tenderness - Rectal Exam Rectal Exam: NORMAL INSPECTION - Extremities Exam Extremities Exam: Normal Capillary Refill - Back Exam Back Exam: Full ROM - Neurological Exam Neurological Exam: Alert, Awake, CN II-XII Intact, Normal Gait, Oriented x3 - Psychiatric Exam Psychiatric exam: Normal Mood - Skin Skin Exam: Intact Assessment and Plan (1) Acute pancreatitis Assessment & Plan: ETIOLOGY UNCLEAR, S/O EU Status: Acute (2) Diarrhea Status: Resolved
[2016-10-16] MEDS: Vancomycin 1 gm/NS 200 ml 1 GM/200 ML BAG IVPB SCH (23:11)
[2016-10-17] MEDS: Morphine 4 MG/ML VIAL IV PRN ×6 (00:37→22:50)
[2016-10-17] MEDS: metroNIDAZOLE IV 500 mg/100 ml 500 MG/100 ML BAG IVPB SCH ×3 (02:38→19:03)
[2016-10-17] MEDS: Aztreonam 1 GM in Sodium Chloride 0.9% 100 ML IVPB SCH ×3 (06:08→22:00)
--- NOTE | 2016-10-17 06:25 | CP.PCM.PN ---
<Richard Del Rio - Last Filed: 10/17/16 06:36> Subjective - Date & Time of Evaluation Date of Evaluation: 10/17/16 Time of Evaluation: 06:00 - Subjective Subjective: PGY 4 GI Follow Up Pt seen and examined bedside Pt still has abd pain Loc: epigastric area 7 out of 10 +BM Tolerating liquid diet with some abd discomfort denies nause or vomiting no other complaints Denies fever, chills or diaphoresis ROS: 10 point ROS conducted, other than what was stated above, it is otherwise neg. Objective - Vital Signs/Intake and Output Vital Signs (last 24 hours): Temp Pulse Resp BP Pulse Ox 98.6 F 80 20 110/66 97 10/17/16 04:27 10/17/16 04:27 10/17/16 04:27 10/17/16 04:27 10/16/16 23:25 Intake and Output: 10/16/16 10/17/16 18:59 06:59 Intake Total 1800 800 Balance 1800 800 - Medications Medications: Current Medications Enoxaparin Sodium (Lovenox) 40 mg SC DAILY [facility] Last Admin: 10/16/16 10:05 Dose: Not Given Famotidine (Pepcid) 20 mg IVP Q12 [facility] Last Admin: 10/16/16 22:14 Dose: 20 mg Aztreonam 1 gm/ Sodium (Chloride) 100 mls @ 100 mls/hr IVPB Q8H [facility] Last Admin: 10/17/16 06:08 Dose: 100 mls/hr Metronidazole (Flagyl) 500 mg in 100 mls @ 100 mls/hr IVPB Q8H [facility] Last Admin: 10/17/16 02:38 Dose: 100 mls/hr Vancomycin/Sodium Chloride (Vancocin) 1 gm in 200 mls @ 133 mls/hr IVPB Q24H [facility] Stop: 10/19/16 23:01 Last Admin: 10/16/16 23:11 Dose: 133 mls/hr Metoclopramide HCl (Reglan) 10 mg IVP Q8 PRN PRN Reason: Nausea/Vomiting Last Admin: 10/12/16 16:57 Dose: 10 mg Morphine Sulfate (Morphine) 3 mg IV Q4 PRN PRN Reason: Pain, severe (8-10) Last Admin: 10/17/16 04:37 Dose: 3 mg Ondansetron HCl (Zofran Inj) 4 mg IVP Q4H PRN PRN Reason: Nausea/Vomiting Last Admin: 10/14/16 18:24 Dose: 4 mg Polyethylene Glycol (Miralax) 17 gm PO DAILY [facility] Last Admin: 10/16/16 10:05 Dose: Not Given - Labs Labs: 10/15/16 06:22 10/15/16 06:22 PT 13.6 SECONDS (9.7-12.2) H 10/11/16 23:34 INR 1.2 10/11/16 23:34 APTT 28 SECONDS (21-34) 10/11/16 23:34 - Constitutional Appears: Well, Non-toxic, No Acute Distress - Eye Exam Eye Exam: Normal appearance - ENT Exam ENT Exam: Mucous Membranes Moist - Respiratory Exam Respiratory Exam: Clear to Ausculation Bilateral, NORMAL BREATHING PATTERN. absent: Rales, Rhonchi, Wheezes, Respiratory Distress - Cardiovascular Exam Cardiovascular Exam: REGULAR RHYTHM, +S1, +S2 - GI/Abdominal Exam GI & Abdominal Exam: Tenderness (epigastric), Normal Bowel Sounds. absent: Firm , Guarding, Rigid, Organomegaly - Neurological Exam Neurological Exam: Alert, Awake, Oriented x3 - Psychiatric Exam Psychiatric exam: Flat Affect, Normal Mood - Skin Skin Exam: Dry, Intact, Normal Color, Warm Assessment and Plan - Assessment and Plan (Free Text) Assessment: Layla Santiago is a 26F w/ hx or recurrent pancreatitis who presents with abd pain. Abd pain is likely 2/2 pancreatitis and large pancreatic fluid collection which is likely a pseudocyst. Incidentally her gallbladder was distended on EUS with a large amount of sludge, which may contribute to her pancreatitis. Abdominal pain 2/2 pancreatitis + fluid collection Large pancreatic Fluid collection with necrotic material s/p FNA via EUS Pancreatitis, etiology uncertain, DDx: gallbadder disease, r/o hereditary pancreatitis UTI Plan: - Continue with liquid diet as tolerated - Pain control as primary team - Continue with antibiotic therapy as per ID - Awaiting IGG4 results - Genetic hereditary pancreatitis testing should be considered as an outpatient -extensive conversation in regards to future diagnostic and theuraputic recommendations - will wait for fluid analysis - will eventually f/u W/ Dr. Nunez as oupt - recommend consulting surgery for lap jennifer in the near future after episode of acute pancreatitis - Will continue to monitor patient clinical course d/w Dr. Wright <Jon Wright Y - Last Filed: 10/17/16 08:35> Objective - Vital Signs/Intake and Output Vital Signs (last 24 hours): Temp Pulse Resp BP Pulse Ox 98.6 F 80 20 110/66 97 10/17/16 04:27 10/17/16 04:27 10/17/16 04:27 10/17/16 04:27 10/16/16 23:25 Intake and Output: 10/17/16 10/17/16 06:59 18:59 Intake Total 2320 Balance 2320 - Medications Medications: Current Medications Enoxaparin Sodium (Lovenox) 40 mg SC DAILY [facility] Last Admin: 10/16/16 10:05 Dose: Not Given Famotidine (Pepcid) 20 mg IVP Q12 [facility] Last Admin: 10/16/16 22:14 Dose: 20 mg Aztreonam 1 gm/ Sodium (Chloride) 100 mls @ 100 mls/hr IVPB Q8H [facility] Last Admin: 10/17/16 06:08 Dose: 100 mls/hr Metronidazole (Flagyl) 500 mg in 100 mls @ 100 mls/hr IVPB Q8H [facility] Last Admin: 10/17/16 02:38 Dose: 100 mls/hr Vancomycin/Sodium Chloride (Vancocin) 1 gm in 200 mls @ 133 mls/hr IVPB Q24H [facility] Stop: 10/19/16 23:01 Last Admin: 10/16/16 23:11 Dose: 133 mls/hr Metoclopramide HCl (Reglan) 10 mg IVP Q8 PRN PRN Reason: Nausea/Vomiting Last Admin: 10/12/16 16:57 Dose: 10 mg Morphine Sulfate (Morphine) 3 mg IV Q4 PRN PRN Reason: Pain, severe (8-10) Last Admin: 10/17/16 04:37 Dose: 3 mg Ondansetron HCl (Zofran Inj) 4 mg IVP Q4H PRN PRN Reason: Nausea/Vomiting Last Admin: 10/14/16 18:24 Dose: 4 mg Polyethylene Glycol (Miralax) 17 gm PO DAILY [facility] Last Admin: 10/16/16 10:05 Dose: Not Given - Labs Labs: 10/15/16 06:22 10/15/16 06:22 PT 13.6 SECONDS (9.7-12.2) H 10/11/16 23:34 INR 1.2 10/11/16 23:34 APTT 28 SECONDS (21-34) 10/11/16 23:34 Attending/Attestation - Attestation I have personally seen and examined this patient.: Yes I have fully participated in the care of the patient.: Yes I have reviewed all pertinent clinical information, including history, physical exam and plan: Yes Notes (Text): 10/17/16 08:31 I have seen and examined patient with GI fellow. No acute events overnight. s/ p EUS with FNA of pancreatic cyst yesterday. She continues to endorse ongoing severe abdominal pain. She denies nausea, vomiting, fever/chills. Tolerating PO liquids without difficulty. Review of vitals from today are normal. Recurrent pancreatitis - etiology unclear Abdominal pain - pancreatic pseudocyst - Full liquid diet as tolerated - Pain control - Continue with antibiotic therapy as per ID - Follow up FNA fluid cytology and CEA levels - Recommend cholecystectomy given clinical presentation - Patient requires additional outpatient workup including potential genetic HP testing and cyst surveillance - Will continue to monitor patient clinical course
[2016-10-17] MEDS: Lactated Ringer's 1,000 ML IV SCH ×2 (08:00→14:33)
[2016-10-17] MEDS: Enoxaparin 40 mg Syringe SC SCH (09:09)
[2016-10-17] MEDS: POLYETHYLENE GLYCOL 3350 17 GM/Dose PACKET PO SCH (09:45)
[2016-10-17 14:00] LABS: RBC URINE 3 /hpf (0-3); URINE BACTERIA RARE (<OCC); URINE BILIRUBIN NEGATIVE (NEGATIVE); URINE BLOOD 1+ (NEGATIVE); URINE COLOR Yellow (YELLOW); URINE GLUCOSE (UA) NORMAL (Normal); URINE KETONE 1+ mg/dL (NEGATIVE); URINE LEUKOCYTE ESTERASE TRACE Leu/uL (Negative); URINE PROTEIN NEGATIVE (NEGATIVE); URINE UROBILINOGEN NORMAL mg/dL (0.2-1.0); WBC URINE 6 /hpf (0-5)
[2016-10-17] MEDS ORDERED: Morphine 4 MG/ML VIAL IV ONE (15:43)
--- NOTE | 2016-10-17 16:24 | CP.PCM.PN ---
Subjective - Date & Time of Evaluation Date of Evaluation: 10/17/16 Time of Evaluation: 16:23 - Subjective Subjective: CHIEF COMPLAINTS TODAY : afebrile Still has abd pain LUQ and epigastric area TOLERATING LIQUIDS. S/P EUS 10/16/16-FINDINGS NOTED EXTENSIVE SLUDGE GALLBLADDER,LARGE PANCREATIC FLUID COLLECTION S/P DIAGNOSTIC FNA ( see full report ) ROS HEENT : N. Resp : No SOB wheezing, cough Cardio : No CP, PND orthopnea GI : +VE ABDOMINAL PAIN, NO n/v INNERSOLE MAKER : No headache , focal deficit. Musculoskel : N Ext. : Pedal pulses intact, no edema or calf pain Derm : N Psych : N. PE. Pt. is alert awake in no distress. V.S As noted in the chart Head ,ear nose,throat and eyes : Normal. Neck : Supple with normal carotids. Lungs: DIMINISHED BREATH SOUNDS AT THE BASES Heart : S1 & S2 normal . . No murmur. S4 + Abd : Soft tender +VE ABDOMINAL PAIN.LUQ,EPIGASTRIUM. Neuro : Moves all ext. with no localized deficit. Ext : No edema with intact pulses. Neg. calf tenderness Derm : No rashes or decubitus ulcer. Radiology/Labs . urine culture positive for MRSA. LIPASE 3636. ESR .30. CREAT 0.6/BUN 4 CXR 10/12 left lower lobe pneumonia with small left pleural effusion. Objective - Vital Signs/Intake and Output Vital Signs (last 24 hours): Temp Pulse Resp BP Pulse Ox 98.5 F 65 18 115/76 97 10/17/16 13:36 10/17/16 13:36 10/17/16 13:36 10/17/16 13:36 10/17/16 13:36 Intake and Output: 10/17/16 10/17/16 06:59 18:59 Intake Total 2320 1750 Balance 2320 1750 - Medications Medications: Current Medications Enoxaparin Sodium (Lovenox) 40 mg SC DAILY [facility] Last Admin: 10/17/16 09:09 Dose: 40 mg Famotidine (Pepcid) 20 mg IVP Q12 [facility] Last Admin: 10/17/16 09:06 Dose: 20 mg Aztreonam 1 gm/ Sodium (Chloride) 100 mls @ 100 mls/hr IVPB Q8H [facility] Last Admin: 10/17/16 14:35 Dose: 100 mls/hr Metronidazole (Flagyl) 500 mg in 100 mls @ 100 mls/hr IVPB Q8H [facility] Last Admin: 10/17/16 09:46 Dose: 100 mls/hr Vancomycin/Sodium Chloride (Vancocin) 1 gm in 200 mls @ 133 mls/hr IVPB Q24H [facility] Stop: 10/19/16 23:01 Last Admin: 10/16/16 23:11 Dose: 133 mls/hr Metoclopramide HCl (Reglan) 10 mg IVP Q8 PRN PRN Reason: Nausea/Vomiting Last Admin: 10/12/16 16:57 Dose: 10 mg Morphine Sulfate (Morphine) 3 mg IV Q4 PRN PRN Reason: Pain, severe (8-10) Last Admin: 10/17/16 13:37 Dose: 3 mg Ondansetron HCl (Zofran Inj) 4 mg IVP Q4H PRN PRN Reason: Nausea/Vomiting Last Admin: 10/17/16 14:44 Dose: 4 mg Polyethylene Glycol (Miralax) 17 gm PO DAILY [facility] Last Admin: 10/17/16 09:45 Dose: Not Given - Labs Labs: 10/15/16 06:22 10/15/16 06:22 PT 13.6 SECONDS (9.7-12.2) H 10/11/16 23:34 INR 1.2 10/11/16 23:34 APTT 28 SECONDS (21-34) 10/11/16 23:34 Assessment and Plan (1) Abdominal pain Status: Deleted (2) Acute pancreatitis Status: Acute (3) Nausea Status: Deleted (4) Vomiting Status: Acute - Assessment and Plan (Free Text) Assessment: IMPRESSION; ABDOMINAL PAIN ACUTE PANCREATITIS /NECROTIC PANCREAS s/p FNA /EUS CHOLYCYSTITIS- SLUDGE GB MATURING PSEUDOCYST LEFT LOWER LOBE PNEUMONIA/EFFUSION.. UTI.( +VE mrsa) PLAN; PER GI.-SURGICAL CONSULT IN PROGRESS. CONTINUE IV AZACTAM 1GM IV Q 8HRLY. 10/12/16. ON IV FLAGYL FOR ANAEROBIC COVERAGE.10/12/16. ON IV VANCOMYCIN 1 G ONCE A DAY DAILY STARTED 10/14/16 Follow-up Vanco trough level prior to the fourth dose. Monitor renal functions closely. CONTACT PRECAUTIONS. CASE DISCUSSED WITH THE STAFF.
[2016-10-17 16:30] LABS: BASO # 0.1 K/uL (0.0-0.2); EOS # 0.2 K/uL (0.0-0.7); EOS % 2.6 % (0.0-4.0); HEMATOCRIT 34.2 % (34.0-47.0); LYMPH # 1.3 K/uL (1.0-4.3); LYMPH % 17.9 % (20.0-40.0); MEAN CELL VOLUME 80.4 fL (81.0-99.0); MEAN CORPUSCULAR HEMOGLOBIN 26.7 pg (27.0-31.0); MEAN CORPUSCULAR HGB CONC 33.2 g/dL (33.0-37.0); MEAN PLATELET VOLUME 7.7 fL (7.2-11.7); MONO # 0.7 K/uL (0.0-0.8); MONO % 10.3 % (0.0-10.0); NRBC % 0.1 % (0.0-2.0); RED CELL DISTRIBUTION WIDTH 15.3 % (11.5-14.5); WHITE BLOOD COUNT 7.1 K/uL (4.8-10.8)
[2016-10-17 16:35] LABS: INR 1.4
[2016-10-17 16:42] LABS: CHLORIDE 98 mmol/L (98-107)
[2016-10-17 16:43] LABS: POTASSIUM 3.7 mmol/L (3.6-5.2); SODIUM 136 mmol/L (132-148)
[2016-10-17 16:45] LABS: AST/SGOT 78 U/L (14-36); BILIRUBIN,TOTAL 2.2 mg/dL (0.2-1.3); CARBON DIOXIDE 26 mmol/L (22-30); GFR AFRICAN-AMERICAN > 60; TOTAL PROTEIN 6.2 g/dL (6.3-8.3)
[2016-10-17 16:46] LABS: ALKALINE PHOSPHATASE 132 U/L (38-126); ALT/SGPT 86 U/L (9-52); BLOOD UREA NITROGEN 4 mg/dL (7-17); CALCIUM 8.1 mg/dl (8.6-10.4); GLUCOSE,RANDOM 105 mg/dL (65-105)
[2016-10-17] MEDS ORDERED: Phytonadione 2.5 MG/0.5 TAB TAB PO SCH (17:00)
--- NOTE | 2016-10-17 18:00 | CP.PCM.CON ---
History of Present Illness - History of Present Illness History of Present Illness: SURGERY CONSULT NOTE FOR DR. MAN 26F with PMH of pancreatitis complains of epigastric abdominal pain radiating to the back that began last week. Pain was associated with nausea and vomitus containing food content. Patient has had two episodes like this in the past and was recently discharged from a hospital in [place] two weeks ago. Nothing helps the pain. Surgery was consulted to evaluate the pt due to a finding of cholecystic sludge on abdominal ultrasound. Patient denies diarrhea, constipation, fevers, or chills. PMH - Pancreatitis x2 episodes within last 6 months PSH - none Social - denies tobacco, alcohol, and illicit drug use Allergies - PCN Past Patient History - Past Medical History & Family History Past Medical History?: No - Past Social History Smoking Status: Never Smoked - MUSCULOSKELETAL/RHEUMATOLOGICAL Hx Falls: No - GASTROINTESTINAL Hx Pancreatitis: Yes - PSYCHIATRIC Hx Substance Use: No - SURGICAL HISTORY Hx Surgeries: No - ANESTHESIA Hx Anesthesia: No Meds Allergies/Adverse Reactions: Allergies Allergy/AdvReac Type Severity Reaction Status Date / Time Penicillins Allergy Verified 10/18/15 09:36 - Medications Medications: Current Medications Enoxaparin Sodium (Lovenox) 40 mg SC DAILY [facility] Last Admin: 10/17/16 09:09 Dose: 40 mg Famotidine (Pepcid) 20 mg IVP Q12 [facility] Last Admin: 10/17/16 09:06 Dose: 20 mg Aztreonam 1 gm/ Sodium (Chloride) 100 mls @ 100 mls/hr IVPB Q8H [facility] Last Admin: 10/17/16 14:35 Dose: 100 mls/hr Metronidazole (Flagyl) 500 mg in 100 mls @ 100 mls/hr IVPB Q8H [facility] Last Admin: 10/17/16 09:46 Dose: 100 mls/hr Vancomycin/Sodium Chloride (Vancocin) 1 gm in 200 mls @ 133 mls/hr IVPB Q24H [facility] Stop: 10/19/16 23:01 Last Admin: 10/16/16 23:11 Dose: 133 mls/hr Metoclopramide HCl (Reglan) 10 mg IVP Q8 PRN PRN Reason: Nausea/Vomiting Last Admin: 10/12/16 16:57 Dose: 10 mg Morphine Sulfate (Morphine) 3 mg IV Q4 PRN PRN Reason: Pain, severe (8-10) Last Admin: 10/17/16 13:37 Dose: 3 mg Ondansetron HCl (Zofran Inj) 4 mg IVP Q4H PRN PRN Reason: Nausea/Vomiting Last Admin: 10/17/16 14:44 Dose: 4 mg Phytonadione (Vitamin K Tab) 5 mg PO DAILY [facility] Phytonadione (Vitamin K Tab) 5 mg PO ONCE ONE Stop: 10/18/16 05:01 Polyethylene Glycol (Miralax) 17 gm PO DAILY [facility] Last Admin: 10/17/16 09:45 Dose: Not Given Physical Exam - Constitutional Appears: Other Additional comments: uncomfortable 2/2 pain - Head Exam Head Exam: ATRAUMATIC - ENT Exam ENT Exam: Mucous Membranes Moist - Respiratory Exam Respiratory Exam: Clear to Auscultation Bilateral, NORMAL BREATHING PATTERN - Cardiovascular Exam Cardiovascular Exam: REGULAR RHYTHM, +S1, +S2 - GI/Abdominal Exam GI & Abdominal Exam: Guarding, Soft, Tenderness (Epigastric). absent: Distended , Rebound, Rigid - Extremities Exam Extremities exam: Negative for: pedal edema, tenderness - Neurological Exam Neurological exam: Alert, Oriented x3 - Psychiatric Exam Psychiatric exam: Anxious - Skin Skin Exam: Dry, Intact, Normal Color, Warm Results - Vital Signs Recent Vital Signs: Last Vital Signs Temp 98.5 F 10/17/16 13:36 Pulse 65 10/17/16 13:36 Resp 18 10/17/16 13:36 BP 115/76 10/17/16 13:36 Pulse Ox 97 10/17/16 13:36 - Labs Result Diagrams: 10/17/16 16:24 10/17/16 16:24 Labs: Laboratory Results - last 24 hr 10/13/16 10/17/16 10/17/16 09:36 13:48 16:24 WBC 7.1 RBC 4.26 Hgb 11.4 Hct 34.2 MCV 80.4 L MCH 26.7 L MCHC 33.2 RDW 15.3 H Plt Count 451 H MPV 7.7 Neut % (Auto) 68.2 Lymph % (Auto) 17.9 L Travis % (Auto) 10.3 H Eos % (Auto) 2.6 Baso % (Auto) 1.0 Neut # 4.9 Lymph # 1.3 Travis # 0.7 Eos # 0.2 Baso # 0.1 PT INR Sodium Potassium Chloride Carbon Dioxide Anion Gap BUN Creatinine Est GFR ( Amer) Est GFR (Non-Af Amer) Random Glucose Calcium Total Bilirubin AST ALT Alkaline Phosphatase Total Protein Albumin Globulin Albumin/Globulin Ratio Urine Color Yellow Urine Clarity Clear Urine pH 7.0 Ur Specific [place] 1.008 Urine Protein Negative Urine Glucose (UA) Normal Urine Ketones 1+ H Urine Blood 1+ H Urine Nitrate Negative Urine Bilirubin Negative Urine Urobilinogen Normal Ur Leukocyte Esterase Trace Urine WBC (Auto) 6 H Urine RBC (Auto) 3 Ur Squamous Epith Cells 6 H Urine Bacteria Rare IgG, Serum (MS) 55.6 10/17/16 10/17/16 16:24 16:24 WBC RBC Hgb Hct MCV MCH MCHC RDW Plt Count MPV Neut % (Auto) Lymph % (Auto) Travis % (Auto) Eos % (Auto) Baso % (Auto) Neut # Lymph # Travis # Eos # Baso # PT 15.6 H INR 1.4 Sodium 136 Potassium 3.7 Chloride 98 Carbon Dioxide 26 Anion Gap 17 BUN 4 L Creatinine 0.5 L Est GFR ( Amer) > 60 Est GFR (Non-Af Amer) > 60 Random Glucose 105 Calcium 8.1 L Total Bilirubin 2.2 H AST 78 H D ALT 86 H D Alkaline Phosphatase 132 H D Total Protein 6.2 L Albumin 3.1 L Globulin 3.1 Albumin/Globulin Ratio 1.0 Urine Color Urine Clarity Urine pH Ur Specific [place] Urine Protein Urine Glucose (UA) Urine Ketones Urine Blood Urine Nitrate Urine Bilirubin Urine Urobilinogen Ur Leukocyte Esterase Urine WBC (Auto) Urine RBC (Auto) Ur Squamous Epith Cells Urine Bacteria IgG, Serum (MS) Assessment & Plan - Assessment and Plan (Free Text) Assessment: 26F with acute pancreatitis/possible pseudocyst and gallbladder sludge Abd U/S - possible pancreatic pseudocyst @ head of pancreas; sludge-filled gallbladder; 7.3mm gallbladder wall; no stone in CBD; no stones, wall thickening , or pericholecystic fluid EGD - large pancreatic fluid collection; large walled off area of necrosis ( 8.5 cm) causing compression of anterior duodenum Plan: NPO Pain control IVF DVT & GI ppx Will need cholecystectomy in the future Pt refuses any type of surgery this admission Discussed with Dr. Wei Sunshine, PGY-2
[2016-10-17] MEDS ORDERED: Iohexol 350mg/ml 100 ML ONE (18:19)
[2016-10-17] MEDS: Phytonadione 2.5 MG/0.5 TAB TAB PO SCH (19:08)
--- NOTE | 2016-10-17 19:15 | CT ---
EXAM: CT Abdomen and Pelvis With Intravenous Contrast CLINICAL HISTORY: 26 years old, female; Condition or disease; Bile duct condition and pancreatic condition; Cyst; Pseudocyst; Additional info: Eval biliary ducts, R/O obstruct TECHNIQUE: Axial computed tomography images of the abdomen and pelvis with intravenous contrast. This CT exam was performed using one or more of the following dose reduction techniques: automated exposure control, adjustment of the mA and/or kV according to patient size, and/or use of iterative reconstruction technique. Coronal and sagittal reformatted images were created and reviewed. CONTRAST: 100 mL of omnipaque 350 administered intravenously. EXAM DATE/TIME: Exam ordered 10/17/2016 5:09 PM COMPARISON: CT - ABD PELVIS IV CONTRAST ONLY 10/12/2016 1:44:28 AM FINDINGS: Lower thorax: A small amount of pericardial fluid/thickening is noted. A small amount of fluid is noted within the distal esophagus which suggests reflux. ABDOMEN: Liver: Unremarkable. No mass. Gallbladder and bile ducts: Contrast is noted within the gallbladder. No calcified stones. The common bile duct measures 1 cm.. Pancreas: There is a multiloculated cyst noted within the head of the pancreas measuring at least 6.9 x 7.4 x 9.6 cm compared to a previous measurement of 3.2 x 5.4 x 5.6 cm at the same level on the previous examination. The pancreatic head mass displaces the gastric antrum and first portion the duodenum anteriorly. No ductal dilation. Spleen: Unremarkable. No splenomegaly. Adrenals: Unremarkable. No mass. Kidneys and ureters: There is a 8mm low density lesion in the midportion of the right kidney with a density measurement of 27 H. No hydronephrosis. Stomach and bowel: See above. Appendix: No findings to suggest acute appendicitis. PELVIS: Bladder: Unremarkable. No mass. Reproductive: Unremarkable as visualized. ABDOMEN and PELVIS: Intraperitoneal space: . Small amount of free fluid is seen in the pelvis. Bones/joints: No acute fracture. No dislocation. Soft tissues: Hazy density is noted within the fat in the in the lesser sac.A small amount of ascites is noted at the inferior edge of the liver in the anterior perinephric space. Vasculature: Unremarkable. No abdominal aortic aneurysm. Lymph nodes: Unremarkable. No enlarged lymph nodes. IMPRESSION: 1. Enlarging multiloculated pseudocyst within the pancreatic head. 2. Vicarious excretion of contrast within the gallbladder .This is related to previous contrast administration on 10/12/2016. 3. 8mm low density lesion in the midportion of the right kidney. The density measurement does not meet the criteria for simple cyst. 4. Small amount of fluid noted within the distal esophagus suggests gastroesophageal reflux 5. Mild central intrahepatic ductal dilatation and dilated common bile duct indicating relative distal obstruction by the pancreatic pseudocyst.
--- NOTE | 2016-10-17 22:11 | CP.PCM.PN ---
Subjective - Date & Time of Evaluation Date of Evaluation: 10/17/16 Time of Evaluation: 20:12 - Subjective Subjective: needs cholecystectomy, no fever, no leukocytosis, no fever Objective - Vital Signs/Intake and Output Vital Signs (last 24 hours): Temp Pulse Resp BP Pulse Ox 98.8 F 77 20 117/74 95 10/17/16 15:45 10/17/16 15:45 10/17/16 15:45 10/17/16 15:45 10/17/16 15:45 Intake and Output: 10/17/16 10/18/16 18:59 06:59 Intake Total 1750 Balance 1750 - Medications Medications: Current Medications Enoxaparin Sodium (Lovenox) 40 mg SC DAILY [facility] Last Admin: 10/17/16 09:09 Dose: 40 mg Famotidine (Pepcid) 20 mg IVP Q12 [facility] Last Admin: 10/17/16 09:06 Dose: 20 mg Aztreonam 1 gm/ Sodium (Chloride) 100 mls @ 100 mls/hr IVPB Q8H [facility] Last Admin: 10/17/16 14:35 Dose: 100 mls/hr Metronidazole (Flagyl) 500 mg in 100 mls @ 100 mls/hr IVPB Q8H [facility] Last Admin: 10/17/16 19:03 Dose: 100 mls/hr Vancomycin/Sodium Chloride (Vancocin) 1 gm in 200 mls @ 133 mls/hr IVPB Q24H [facility] Stop: 10/19/16 23:01 Last Admin: 10/16/16 23:11 Dose: 133 mls/hr Metoclopramide HCl (Reglan) 10 mg IVP Q8 PRN PRN Reason: Nausea/Vomiting Last Admin: 10/12/16 16:57 Dose: 10 mg Morphine Sulfate (Morphine) 3 mg IV Q4 PRN PRN Reason: Pain, severe (8-10) Last Admin: 10/17/16 18:57 Dose: 3 mg Ondansetron HCl (Zofran Inj) 4 mg IVP Q4H PRN PRN Reason: Nausea/Vomiting Last Admin: 10/17/16 14:44 Dose: 4 mg Phytonadione (Vitamin K Tab) 5 mg PO DAILY [facility] Stop: 10/19/16 10:01 Last Admin: 10/17/16 19:08 Dose: 5 mg Polyethylene Glycol (Miralax) 17 gm PO DAILY [facility] Last Admin: 10/17/16 09:45 Dose: Not Given - Labs Labs: 10/17/16 16:24 10/17/16 16:24 PT 15.6 SECONDS (9.7-12.2) H 10/17/16 16:24 INR 1.4 10/17/16 16:24 APTT 28 SECONDS (21-34) 10/11/16 23:34 - Constitutional Appears: Non-toxic, No Acute Distress - Head Exam Head Exam: ATRAUMATIC, NORMAL INSPECTION, NORMOCEPHALIC - Eye Exam Eye Exam: EOMI, Normal appearance, PERRL Pupil Exam: NORMAL ACCOMODATION - ENT Exam ENT Exam: Mucous Membranes Moist, Normal Exam, Normal Oropharynx, TM's Normal Bilaterally - Neck Exam Neck Exam: Normal Inspection - Respiratory Exam Respiratory Exam: Clear to Ausculation Bilateral, NORMAL BREATHING PATTERN - Cardiovascular Exam Cardiovascular Exam: REGULAR RHYTHM, +S1, +S2 - GI/Abdominal Exam GI & Abdominal Exam: Soft, Tenderness, Normal Bowel Sounds - Rectal Exam Rectal Exam: NORMAL INSPECTION - Extremities Exam Extremities Exam: Full ROM, Normal Capillary Refill - Neurological Exam Neurological Exam: Alert, Awake, CN II-XII Intact, Normal Gait, Oriented x3 Neuro motor strength exam: Left Upper Extremity: 5, Right Upper Extremity: 5, Left Lower Extremity: 5, Right Lower Extremity: 5 - Psychiatric Exam Psychiatric exam: Normal Affect, Normal Mood - Skin Skin Exam: Dry Assessment and Plan (1) Acute pancreatitis Status: Acute (2) Diarrhea Status: Resolved (3) Cholelithiases Assessment & Plan: needs cholecystectomy, dr galeano for a consult Status: Chronic
[2016-10-17] MEDS: Vancomycin 1 gm/NS 200 ml 1 GM/200 ML BAG IVPB SCH (22:34)
[2016-10-18] MEDS: metroNIDAZOLE IV 500 mg/100 ml 500 MG/100 ML BAG IVPB SCH ×3 (01:37→18:22)
[2016-10-18] MEDS: Morphine 4 MG/ML VIAL IV PRN ×3 (02:59→19:11)
[2016-10-18] MEDS: Aztreonam 1 GM in Sodium Chloride 0.9% 100 ML IVPB SCH ×3 (06:11→22:13)
[2016-10-18 08:17] LABS: INR 1.3
[2016-10-18 08:21] LABS: BASO # 0.1 K/uL (0.0-0.2); BASO % 0.8 % (0.0-2.0); EOS # 0.2 K/uL (0.0-0.7); EOS % 3.2 % (0.0-4.0); HEMATOCRIT 34.7 % (34.0-47.0); LYMPH # 1.2 K/uL (1.0-4.3); LYMPH % 18.2 % (20.0-40.0); MEAN CELL VOLUME 80.4 fL (81.0-99.0); MEAN CORPUSCULAR HEMOGLOBIN 26.5 pg (27.0-31.0); MEAN PLATELET VOLUME 8.1 fL (7.2-11.7); MONO # 0.7 K/uL (0.0-0.8); MONO % 10.2 % (0.0-10.0); WHITE BLOOD COUNT 6.8 K/uL (4.8-10.8)
--- NOTE | 2016-10-18 08:30 | CP.PCM.PN ---
<Richard Del Rio - Last Filed: 10/18/16 08:32> Subjective - Date & Time of Evaluation Date of Evaluation: 10/18/16 Time of Evaluation: 08:00 - Subjective Subjective: PGY4 GI follow-up note Pt seen and examined bedside Abd hicks 10 out of 10 in epigastric area, nonradiatng denies BM + nausea, denies vomiting minimal Po intake NPO after midnight 10 point ROS conducted other than what was mentioned above, otherwise neg Objective - Vital Signs/Intake and Output Vital Signs (last 24 hours): Temp Pulse Resp BP Pulse Ox 98.1 F 70 20 107/65 97 10/18/16 04:00 10/18/16 04:00 10/18/16 04:00 10/18/16 04:00 10/18/16 04:00 Intake and Output: 10/18/16 10/18/16 06:59 18:59 Intake Total 2300 Balance 2300 - Medications Medications: Current Medications Enoxaparin Sodium (Lovenox) 40 mg SC DAILY [facility] Last Admin: 10/17/16 09:09 Dose: 40 mg Famotidine (Pepcid) 20 mg IVP Q12 [facility] Last Admin: 10/17/16 22:28 Dose: 20 mg Aztreonam 1 gm/ Sodium (Chloride) 100 mls @ 100 mls/hr IVPB Q8H [facility] Last Admin: 10/18/16 06:11 Dose: 100 mls/hr Metronidazole (Flagyl) 500 mg in 100 mls @ 100 mls/hr IVPB Q8H [facility] Last Admin: 10/18/16 01:37 Dose: 100 mls/hr Vancomycin/Sodium Chloride (Vancocin) 1 gm in 200 mls @ 133 mls/hr IVPB Q24H [facility] Stop: 10/19/16 23:01 Last Admin: 10/17/16 22:34 Dose: 133 mls/hr Metoclopramide HCl (Reglan) 10 mg IVP Q8 PRN PRN Reason: Nausea/Vomiting Last Admin: 10/12/16 16:57 Dose: 10 mg Morphine Sulfate (Morphine) 3 mg IV Q4 PRN PRN Reason: Pain, severe (8-10) Last Admin: 10/18/16 07:38 Dose: 3 mg Ondansetron HCl (Zofran Inj) 4 mg IVP Q4H PRN PRN Reason: Nausea/Vomiting Last Admin: 10/17/16 14:44 Dose: 4 mg Phytonadione (Vitamin K Tab) 5 mg PO DAILY [facility] Stop: 10/19/16 10:01 Last Admin: 10/17/16 19:08 Dose: 5 mg Polyethylene Glycol (Miralax) 17 gm PO DAILY [facility] Last Admin: 10/17/16 09:45 Dose: Not Given - Labs Labs: 10/18/16 07:51 10/17/16 16:24 PT 15.5 SECONDS (9.7-12.2) H 10/18/16 07:51 INR 1.3 10/18/16 07:51 APTT 32 SECONDS (21-34) 10/18/16 07:51 - Constitutional Appears: In Acute Distress - Head Exam Head Exam: ATRAUMATIC, NORMOCEPHALIC - Eye Exam Eye Exam: Normal appearance - ENT Exam ENT Exam: Mucous Membranes Moist, Normal Exam - Respiratory Exam Respiratory Exam: Clear to Ausculation Bilateral, NORMAL BREATHING PATTERN. absent: Rales, Rhonchi, Wheezes, Respiratory Distress - Cardiovascular Exam Cardiovascular Exam: REGULAR RHYTHM, +S1, +S2 - GI/Abdominal Exam GI & Abdominal Exam: Soft, Tenderness (epigastric), Hypoactive Bowel Sounds. absent: Distended, Firm, Guarding, Rigid, Organomegaly - Extremities Exam Extremities Exam: Normal Capillary Refill, Normal Inspection - Neurological Exam Neurological Exam: Alert, Awake, Oriented x3 - Psychiatric Exam Psychiatric exam: Normal Affect, Normal Mood - Skin Skin Exam: Dry, Intact (slight juandice), Warm Assessment and Plan - Assessment and Plan (Free Text) Assessment: Layla Santiago is a 26F w/ hx or recurrent pancreatitis who presents with abd pain. Abd pain is likely 2/2 pancreatitis and large pancreatic fluid collection which is likely a pseudocyst. Incidentally her gallbladder was distended on EUS with a large amount of sludge, which may contribute to her pancreatitis. Her recent CT scan reveals worsening pancreatic collection with pancreatic and CBD obstruction. Abdominal pain 2/2 pancreatitis + fluid collection, worsening Large pancreatic Fluid collection with necrotic material s/p FNA via EUS Pancreatitis, etiology uncertain, DDx: gallbadder disease, r/o hereditary pancreatitis Biliary obstruction 2/2 Pancreatic fluid collection Cholestatis 2/2 obstruction UTI Plan: -NPO -CT scan reviewed and collection has sig increased and compressing surrounding anatomy including duodenum, pancreatic duct, and CBD -will go for EUS and stent placement to drain cyst -continue abx for now, of vanco, flagyl, and aztreonam -will give Po vit K -hold on any surgery -after procedure can advance diet -pain control as per primary team d/w Dr. Nunez <Jacky Nunez - Last Filed: 10/18/16 09:33> Objective - Vital Signs/Intake and Output Vital Signs (last 24 hours): Temp Pulse Resp BP Pulse Ox 98.1 F 65 20 115/74 100 10/18/16 07:35 10/18/16 07:35 10/18/16 07:35 10/18/16 07:35 10/18/16 07:35 Intake and Output: 10/18/16 10/18/16 06:59 18:59 Intake Total 2300 Balance 2300 - Medications Medications: Current Medications Enoxaparin Sodium (Lovenox) 40 mg SC DAILY [facility] Last Admin: 10/17/16 09:09 Dose: 40 mg Famotidine (Pepcid) 20 mg IVP Q12 [facility] Last Admin: 10/17/16 22:28 Dose: 20 mg Aztreonam 1 gm/ Sodium (Chloride) 100 mls @ 100 mls/hr IVPB Q8H [facility] Last Admin: 10/18/16 06:11 Dose: 100 mls/hr Metronidazole (Flagyl) 500 mg in 100 mls @ 100 mls/hr IVPB Q8H [facility] Last Admin: 10/18/16 01:37 Dose: 100 mls/hr Vancomycin/Sodium Chloride (Vancocin) 1 gm in 200 mls @ 133 mls/hr IVPB Q24H [facility] Stop: 10/19/16 23:01 Last Admin: 10/17/16 22:34 Dose: 133 mls/hr Metoclopramide HCl (Reglan) 10 mg IVP Q8 PRN PRN Reason: Nausea/Vomiting Last Admin: 10/12/16 16:57 Dose: 10 mg Morphine Sulfate (Morphine) 3 mg IV Q4 PRN PRN Reason: Pain, severe (8-10) Last Admin: 10/18/16 07:38 Dose: 3 mg Ondansetron HCl (Zofran Inj) 4 mg IVP Q4H PRN PRN Reason: Nausea/Vomiting Last Admin: 10/17/16 14:44 Dose: 4 mg Phytonadione (Vitamin K Tab) 5 mg PO DAILY [facility] Stop: 10/19/16 10:01 Last Admin: 10/17/16 19:08 Dose: 5 mg Polyethylene Glycol (Miralax) 17 gm PO DAILY [facility] Last Admin: 10/17/16 09:45 Dose: Not Given - Labs Labs: 10/18/16 07:51 10/18/16 07:51 PT 15.5 SECONDS (9.7-12.2) H 10/18/16 07:51 INR 1.3 10/18/16 07:51 APTT 32 SECONDS (21-34) 10/18/16 07:51 Attending/Attestation - Attestation I have personally seen and examined this patient.: Yes I have fully participated in the care of the patient.: Yes I have reviewed all pertinent clinical information, including history, physical exam and plan: Yes Notes (Text): 10/18/16 08:51 26 year old female with h/o recurrent pancreatitis now complicated by walled off necrosis causing gastric outlet obstruction and now biliary obstruction. 1. Acute recurrent pancreatitis 2. 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 Gastric outlet obstruction 5. Biliary obstruction 6. Microlithiasis Plan: -discussed the situation at length with the patient -she has complicated severe acute pancreatitis -she underwent diagnostic EUS demonstrated walled off pancreatic necrosis with a mature wall, a diagnostic sample was sent to the lab -repeat CT scan demonstrates significant rapid enlargement of the walled off necrosis with worsening mass effect on stomach and duodenum causing obstruction as well as now causing biliary obstruction -based on the imaging including EUS/CT scans, this patient likely has disconnected pancreatic duct syndrome as the upstream pancreas appears relatively ok and drains into the collection, but there is no visible pancreatic head parenchyma or PD going into the duodenum, suggesting she may need jail stenting -discussed the patient's condition with her at length -we will plan for endoscopic cystgastrostomy today under general anasthesia -discussed the risks of the procedure including bleeding, infection, perforation , stent occlusion, potentially requiring additional endoscopies or procedures, or possibly even surgery -she understands that this is a serious life threatening condition, but also that without treatment, this problem will not resolve -in the meantime, will continue antibiotics -she will need eventual cholecystectomy, though not at this time -will follow closely
[2016-10-18 08:31] LABS: CHLORIDE 97 mmol/L (98-107); POTASSIUM 3.6 mmol/L (3.6-5.2); SODIUM 136 mmol/L (132-148)
[2016-10-18 08:33] LABS: AST/SGOT 83 U/L (14-36); BILIRUBIN,DIRECT 1.7 mg/dL (0.0-0.4); BILIRUBIN,TOTAL 2.1 mg/dL (0.2-1.3); CARBON DIOXIDE 23 mmol/L (22-30); GFR AFRICAN-AMERICAN > 60; TOTAL PROTEIN 6.2 g/dL (6.3-8.3)
[2016-10-18 08:34] LABS: ALKALINE PHOSPHATASE 133 U/L (38-126); ALT/SGPT 95 U/L (9-52); BLOOD UREA NITROGEN 3 mg/dL (7-17); CALCIUM 8.3 mg/dl (8.6-10.4); GLUCOSE,RANDOM 90 mg/dL (65-105)
--- NOTE | 2016-10-18 08:34 | CP.PCM.PN ---
Subjective - Date & Time of Evaluation Date of Evaluation: 10/18/16 Time of Evaluation: 07:00 - Subjective Subjective: Patient seen and examined this morning reports nausea.Reports epigastric tenderness. Denies BM, denies passing flatus. Minimal PO intake. No acute events over night. Patient refusing physical examination. Objective - Vital Signs/Intake and Output Vital Signs (last 24 hours): Temp Pulse Resp BP Pulse Ox 98.1 F 70 20 107/65 97 10/18/16 04:00 10/18/16 04:00 10/18/16 04:00 10/18/16 04:00 10/18/16 04:00 Intake and Output: 10/18/16 10/18/16 06:59 18:59 Intake Total 2300 Balance 2300 - Medications Medications: Current Medications Enoxaparin Sodium (Lovenox) 40 mg SC DAILY [facility] Last Admin: 10/17/16 09:09 Dose: 40 mg Famotidine (Pepcid) 20 mg IVP Q12 [facility] Last Admin: 10/17/16 22:28 Dose: 20 mg Aztreonam 1 gm/ Sodium (Chloride) 100 mls @ 100 mls/hr IVPB Q8H [facility] Last Admin: 10/18/16 06:11 Dose: 100 mls/hr Metronidazole (Flagyl) 500 mg in 100 mls @ 100 mls/hr IVPB Q8H [facility] Last Admin: 10/18/16 01:37 Dose: 100 mls/hr Vancomycin/Sodium Chloride (Vancocin) 1 gm in 200 mls @ 133 mls/hr IVPB Q24H [facility] Stop: 10/19/16 23:01 Last Admin: 10/17/16 22:34 Dose: 133 mls/hr Metoclopramide HCl (Reglan) 10 mg IVP Q8 PRN PRN Reason: Nausea/Vomiting Last Admin: 10/12/16 16:57 Dose: 10 mg Morphine Sulfate (Morphine) 3 mg IV Q4 PRN PRN Reason: Pain, severe (8-10) Last Admin: 10/18/16 07:38 Dose: 3 mg Ondansetron HCl (Zofran Inj) 4 mg IVP Q4H PRN PRN Reason: Nausea/Vomiting Last Admin: 10/17/16 14:44 Dose: 4 mg Phytonadione (Vitamin K Tab) 5 mg PO DAILY [facility] Stop: 10/19/16 10:01 Last Admin: 10/17/16 19:08 Dose: 5 mg Polyethylene Glycol (Miralax) 17 gm PO DAILY [facility] Last Admin: 10/17/16 09:45 Dose: Not Given - Labs Labs: 10/18/16 07:51 10/18/16 07:51 PT 15.5 SECONDS (9.7-12.2) H 10/18/16 07:51 INR 1.3 10/18/16 07:51 APTT 32 SECONDS (21-34) 10/18/16 07:51 - Constitutional Appears: No Acute Distress Assessment and Plan - Assessment and Plan (Free Text) Assessment: 26F with acute pancreatitis/possible pseudocyst and gallbladder sludge Abd U/S - possible pancreatic pseudocyst @ head of pancreas; sludge-filled gallbladder; 7.3mm gallbladder wall; no stone in CBD; no stones, wall thickening , or pericholecystic fluid. EGD - large pancreatic fluid collection; large walled off area of necrosis ( 8.5 cm) causing compression of anterior duodenum Patient scheduled for endoscopic cystgastrostomy today -NPO -Pain control -IVF -DVT & GI ppx -Will need cholecystectomy in the future -Pt still refusing any surgical intervention at this present time -Patient refusing physical examination Further recs per Dr. Wei Huffman PGY-2
[2016-10-18] MEDS ORDERED: Phytonadione 2.5 MG/0.5 TAB TAB PO SCH (10:00)
[2016-10-18] MEDS ORDERED: Midazolam 2 MG/2 ML VIAL ONE (10:02)
[2016-10-18] MEDS ORDERED: Propofol 10 mg/ml Inj (20 ML) ONE (10:02)
[2016-10-18] MEDS ORDERED: Lactated Ringer's 1,000 ML IV ONE (10:15)
[2016-10-18] MEDS ORDERED: Succinylcholine Chloride 20 mg/ml Syr (5 ml) IV ONE (11:18)
[2016-10-18] MEDS ORDERED: Rocuronium 10 mg/ml (10 ml) ONE (11:18)
[2016-10-18] MEDS: Phytonadione 2.5 MG/0.5 TAB TAB PO SCH (13:48)
[2016-10-18] MEDS: POLYETHYLENE GLYCOL 3350 17 GM/Dose PACKET PO SCH (13:49)
--- NOTE | 2016-10-18 20:50 | CP.PCM.PN ---
Subjective - Date & Time of Evaluation Date of Evaluation: 10/18/16 Time of Evaluation: 20:50 - Subjective Subjective: CHIEF COMPLAINTS TODAY : afebrile, SEEN POSTPROCEDURE. DENIES ANY ABDOMINAL PAIN,COMFORTABLE Wants to take a shower S/P EUS CYSTOGASTROSTOMY 10/18/16. findings noted. S/P EUS 10/16/16-FINDINGS NOTED EXTENSIVE SLUDGE GALLBLADDER,LARGE PANCREATIC FLUID COLLECTION S/P DIAGNOSTIC FNA ( see full report ) ROS HEENT : N. Resp : No SOB wheezing, cough Cardio : No CP, PND orthopnea GI : +VE ABDOMINAL PAIN, NO n/v REBRANDER : No headache , focal deficit. Musculoskel : N Ext. : Pedal pulses intact, no edema or calf pain Derm : N Psych : N. PE. Pt. is alert awake in no distress. V.S As noted in the chart Head ,ear nose,throat and eyes : Normal. Neck : Supple with normal carotids. Lungs: DIMINISHED BREATH SOUNDS AT THE BASES Heart : S1 & S2 normal . . No murmur. S4 + Abd : Soft , postprocedure. Neuro : Moves all ext. with no localized deficit. Ext : No edema with intact pulses. Neg. calf tenderness Derm : No rashes or decubitus ulcer. Radiology/Labs . Vanco levels trough <5.0 not notified by RN surgical consultant. urine culture positive for MRSA. LIPASE 3636. ESR .30. CREAT 0.6/BUN 4 CXR 10/12 left lower lobe pneumonia with small left pleural effusion. Objective - Vital Signs/Intake and Output Vital Signs (last 24 hours): Temp Pulse Resp BP Pulse Ox 97.7 F 80 19 111/74 97 10/18/16 15:40 10/18/16 15:40 10/18/16 15:40 10/18/16 15:40 10/18/16 15:40 Intake and Output: 10/18/16 10/19/16 18:59 06:59 Intake Total 300 Balance 300 - Medications Medications: Current Medications Enoxaparin Sodium (Lovenox) 40 mg SC DAILY [facility] Last Admin: 10/17/16 09:09 Dose: 40 mg Famotidine (Pepcid) 20 mg IVP Q12 [facility] Last Admin: 10/18/16 13:42 Dose: 20 mg Aztreonam 1 gm/ Sodium (Chloride) 100 mls @ 100 mls/hr IVPB Q8H [facility] Last Admin: 10/18/16 14:58 Dose: 100 mls/hr Metronidazole (Flagyl) 500 mg in 100 mls @ 100 mls/hr IVPB Q8H [facility] Last Admin: 10/18/16 18:22 Dose: 100 mls/hr Vancomycin/Sodium Chloride (Vancocin) 1 gm in 200 mls @ 133 mls/hr IVPB Q24H [facility] Stop: 10/19/16 23:01 Last Admin: 10/17/16 22:34 Dose: 133 mls/hr Metoclopramide HCl (Reglan) 10 mg IVP Q8 PRN PRN Reason: Nausea/Vomiting Last Admin: 10/12/16 16:57 Dose: 10 mg Morphine Sulfate (Morphine) 3 mg IV Q4 PRN PRN Reason: Pain, severe (8-10) Last Admin: 10/18/16 19:11 Dose: 3 mg Ondansetron HCl (Zofran Inj) 4 mg IVP Q4H PRN PRN Reason: Nausea/Vomiting Last Admin: 10/17/16 14:44 Dose: 4 mg Phytonadione (Vitamin K Tab) 5 mg PO DAILY [facility] Stop: 10/19/16 10:01 Last Admin: 10/18/16 13:48 Dose: 5 mg Polyethylene Glycol (Miralax) 17 gm PO DAILY [facility] Last Admin: 10/18/16 13:49 Dose: Not Given - Labs Labs: 10/18/16 07:51 10/18/16 07:51 PT 15.5 SECONDS (9.7-12.2) H 10/18/16 07:51 INR 1.3 10/18/16 07:51 APTT 32 SECONDS (21-34) 10/18/16 07:51 Assessment and Plan (1) Acute pancreatitis Status: Acute (2) Vomiting Status: Acute (3) UTI (urinary tract infection) Status: Acute (4) Pneumonia Status: Acute - Assessment and Plan (Free Text) Assessment: IMPRESSION; ABDOMINAL PAIN ACUTE PANCREATITIS /NECROTIC PANCREAS s/p FNA /EUS 10/16/16 S/P EUS/CYSTOGASTROSTOMY 10/18/16 CHOLYCYSTITIS- SLUDGE GB MATURING PSEUDOCYST LEFT LOWER LOBE PNEUMONIA/EFFUSION.. UTI.( +VE mrsa) PLAN; PER GI.-SURGERY HELD. CONTINUE IV AZACTAM 1GM IV Q 8HRLY. 10/12/16. ON IV FLAGYL FOR ANAEROBIC COVERAGE.10/12/16. INCREASE IV VANCOMYCIN 1.5 G ONCE A DAY DAILY STARTED 10/14/16, 10/18 Follow-up Vanco trough level prior to the fourth dose. Monitor renal functions closely. REPEAT ua URINE CULTURES BMP IN A.M. F/U CXR IN AM CONTACT PRECAUTIONS. CASE DISCUSSED WITH THE STAFF RUTH
--- NOTE | 2016-10-18 22:59 | CP.PCM.PN ---
Subjective - Date & Time of Evaluation Date of Evaluation: 10/18/16 Time of Evaluation: 20:17 - Subjective Subjective: PAIN IN ABDOMEN, NO FEVER, NO NAUSEA, SEEING GI Objective - Vital Signs/Intake and Output Vital Signs (last 24 hours): Temp Pulse Resp BP Pulse Ox 97.7 F 80 19 111/74 97 10/18/16 15:40 10/18/16 15:40 10/18/16 15:40 10/18/16 15:40 10/18/16 15:40 Intake and Output: 10/18/16 10/19/16 18:59 06:59 Intake Total 300 Balance 300 - Medications Medications: Current Medications Enoxaparin Sodium (Lovenox) 40 mg SC DAILY [facility] Last Admin: 10/17/16 09:09 Dose: 40 mg Famotidine (Pepcid) 20 mg IVP Q12 [facility] Last Admin: 10/18/16 22:13 Dose: 20 mg Aztreonam 1 gm/ Sodium (Chloride) 100 mls @ 100 mls/hr IVPB Q8H [facility] Last Admin: 10/18/16 22:13 Dose: 100 mls/hr Metronidazole (Flagyl) 500 mg in 100 mls @ 100 mls/hr IVPB Q8H [facility] Last Admin: 10/18/16 18:22 Dose: 100 mls/hr Vancomycin HCl 1.5 gm/ Sodium (Chloride) 500 mls @ 200 mls/hr IVPB Q24H [facility] Metoclopramide HCl (Reglan) 10 mg IVP Q8 PRN PRN Reason: Nausea/Vomiting Last Admin: 10/12/16 16:57 Dose: 10 mg Morphine Sulfate (Morphine) 3 mg IV Q4 PRN PRN Reason: Pain, severe (8-10) Last Admin: 10/18/16 19:11 Dose: 3 mg Ondansetron HCl (Zofran Inj) 4 mg IVP Q4H PRN PRN Reason: Nausea/Vomiting Last Admin: 10/17/16 14:44 Dose: 4 mg Phytonadione (Vitamin K Tab) 5 mg PO DAILY [facility] Stop: 10/19/16 10:01 Last Admin: 10/18/16 13:48 Dose: 5 mg Polyethylene Glycol (Miralax) 17 gm PO DAILY [facility] Last Admin: 10/18/16 13:49 Dose: Not Given - Labs Labs: 10/18/16 07:51 10/18/16 07:51 PT 15.5 SECONDS (9.7-12.2) H 10/18/16 07:51 INR 1.3 10/18/16 07:51 APTT 32 SECONDS (21-34) 10/18/16 07:51 - Constitutional Appears: In Acute Distress, Chronically Ill - Head Exam Head Exam: ATRAUMATIC, NORMAL INSPECTION, NORMOCEPHALIC - Eye Exam Eye Exam: EOMI, Normal appearance, PERRL Pupil Exam: NORMAL ACCOMODATION - ENT Exam ENT Exam: Mucous Membranes Moist, Normal Exam, Normal Oropharynx, TM's Normal Bilaterally - Neck Exam Neck Exam: Normal Inspection - Respiratory Exam Respiratory Exam: Clear to Ausculation Bilateral, Wheezes - Cardiovascular Exam Cardiovascular Exam: REGULAR RHYTHM, +S1, +S2 - GI/Abdominal Exam GI & Abdominal Exam: Soft, Normal Bowel Sounds - Rectal Exam Rectal Exam: NORMAL INSPECTION - Extremities Exam Extremities Exam: Full ROM, Normal Capillary Refill, Normal Inspection - Neurological Exam Neurological Exam: Alert, Awake, CN II-XII Intact, Normal Gait, Oriented x3 - Psychiatric Exam Psychiatric exam: Normal Mood - Skin Skin Exam: Intact Assessment and Plan (1) Acute pancreatitis Status: Acute (2) Cholelithiases Status: Chronic
[2016-10-18] MEDS: Vancomycin 1.5 GM in Sodium Chloride 0.9% 500 ML IVPB SCH (23:17)
[2016-10-19] MEDS: metroNIDAZOLE IV 500 mg/100 ml 500 MG/100 ML BAG IVPB SCH ×3 (02:12→18:11)
[2016-10-19] MEDS: Morphine 4 MG/ML VIAL IV PRN ×2 (02:38→16:40)
[2016-10-19] MEDS: Aztreonam 1 GM in Sodium Chloride 0.9% 100 ML IVPB SCH ×3 (06:09→22:04)
--- NOTE | 2016-10-19 09:03 | CP.PCM.PN ---
Subjective - Date & Time of Evaluation Date of Evaluation: 10/19/16 Time of Evaluation: 07:25 - Subjective Subjective: Patient seen and examined. Tolerating PO. Reports epigastric pain has improved. Passing flatus. Denies RUQ pain. Objective - Vital Signs/Intake and Output Vital Signs (last 24 hours): Temp Pulse Resp BP Pulse Ox 98.1 F 73 18 113/74 98 10/19/16 08:41 10/19/16 08:41 10/19/16 08:41 10/19/16 08:41 10/19/16 08:41 Intake and Output: 10/19/16 10/19/16 06:59 18:59 Intake Total 150 Balance 150 - Medications Medications: Current Medications Enoxaparin Sodium (Lovenox) 40 mg SC DAILY [facility] Last Admin: 10/17/16 09:09 Dose: 40 mg Famotidine (Pepcid) 20 mg PO BID [facility] Aztreonam 1 gm/ Sodium (Chloride) 100 mls @ 100 mls/hr IVPB Q8H [facility] Last Admin: 10/19/16 06:09 Dose: 100 mls/hr Metronidazole (Flagyl) 500 mg in 100 mls @ 100 mls/hr IVPB Q8H [facility] Last Admin: 10/19/16 02:12 Dose: 100 mls/hr Vancomycin HCl 1.5 gm/ Sodium (Chloride) 500 mls @ 200 mls/hr IVPB Q24H [facility] Last Admin: 10/18/16 23:17 Dose: 200 mls/hr Morphine Sulfate (Morphine) 3 mg IV Q4 PRN PRN Reason: Pain, severe (8-10) Last Admin: 10/19/16 02:38 Dose: 3 mg Ondansetron HCl (Zofran Inj) 4 mg IVP Q4H PRN PRN Reason: Nausea/Vomiting Last Admin: 10/17/16 14:44 Dose: 4 mg Polyethylene Glycol (Miralax) 17 gm PO DAILY [facility] Last Admin: 10/18/16 13:49 Dose: Not Given - Labs Labs: 10/18/16 07:51 10/18/16 07:51 PT 15.5 SECONDS (9.7-12.2) H 10/18/16 07:51 INR 1.3 10/18/16 07:51 APTT 32 SECONDS (21-34) 10/18/16 07:51 - Constitutional Appears: No Acute Distress - Head Exam Head Exam: NORMOCEPHALIC - Eye Exam Eye Exam: Normal appearance - ENT Exam ENT Exam: Mucous Membranes Moist - Respiratory Exam Respiratory Exam: NORMAL BREATHING PATTERN - Cardiovascular Exam Cardiovascular Exam: +S1, +S2 - GI/Abdominal Exam GI & Abdominal Exam: Soft, Tenderness Additional comments: mild tenderness along epigastric region - Rectal Exam Rectal Exam: NORMAL INSPECTION - Neurological Exam Neurological Exam: Alert, Awake, Oriented x3 - Psychiatric Exam Psychiatric exam: Normal Mood Assessment and Plan - Assessment and Plan (Free Text) Assessment: 26F with acute pancreatitis/possible pseudocyst and gallbladder sludge Abd U/S - possible pancreatic pseudocyst @ head of pancreas; sludge-filled gallbladder; 7.3mm gallbladder wall; no stone in CBD; no stones, wall thickening , or pericholecystic fluid. EGD - large pancreatic fluid collection; large walled off area of necrosis ( 8.5 cm) causing compression of anterior duodenum Patient is s/p endoscopic cystgastrostomy, with abdominal pain improving Patient expressed she does not want any surgical intervention done. Wants to try lifestyle modifications. However, patient stated if she were to have a bout of biliary colic/RUQ pain she will consider having a laparoscopic cholecystectomy. -Pain control -DVT & GI ppx -Pt still refusing any surgical intervention at this present time Further recs per Dr. Wei Huffman PGY-2
--- NOTE | 2016-10-19 09:44 | RAD ---
HISTORY: Cough. Evaluate for infiltrate. COMPARISON: No prior. FINDINGS: LUNGS: No active pulmonary disease. PLEURA: No significant pleural effusion identified, no pneumothorax apparent. CARDIOVASCULAR: Normal. OSSEOUS STRUCTURES: No significant abnormalities. VISUALIZED UPPER ABDOMEN: Normal. OTHER FINDINGS: None. IMPRESSION: No active disease.
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
[2016-10-19] MEDS: Enoxaparin 40 mg Syringe SC SCH (09:57)
[2016-10-19 11:58] LABS: BASO # 0.1 K/uL (0.0-0.2); BASO % 1.3 % (0.0-2.0); EOS # 0.2 K/uL (0.0-0.7); EOS % 3.6 % (0.0-4.0); HEMATOCRIT 35.3 % (34.0-47.0); LYMPH # 1.2 K/uL (1.0-4.3); LYMPH % 18.4 % (20.0-40.0); MEAN CORPUSCULAR HEMOGLOBIN 26.7 pg (27.0-31.0); MEAN PLATELET VOLUME 8.1 fL (7.2-11.7); MONO # 0.6 K/uL (0.0-0.8); MONO % 8.6 % (0.0-10.0); RED CELL DISTRIBUTION WIDTH 15.4 % (11.5-14.5); WHITE BLOOD COUNT 6.5 K/uL (4.8-10.8)
[2016-10-19 12:06] LABS: CHLORIDE 98 mmol/L (98-107); POTASSIUM 3.6 mmol/L (3.6-5.2); SODIUM 140 mmol/L (132-148)
--- NOTE | 2016-10-19 12:07 | CP.PCM.PN ---
Subjective - Date & Time of Evaluation Date of Evaluation: 10/19/16 Time of Evaluation: 12:07 - Subjective Subjective: CHIEF COMPLAINTS TODAY : afebrile c/o less abdominal pain tolerating full liquids. S/P EUS CYSTOGASTROSTOMY 10/18/16. findings noted. S/P EUS 10/16/16-FINDINGS NOTED EXTENSIVE SLUDGE GALLBLADDER,LARGE PANCREATIC FLUID COLLECTION S/P DIAGNOSTIC FNA ( see full report ) ROS HEENT : N. Resp : No SOB wheezing, cough Cardio : No CP, PND orthopnea GI : +VE ABDOMINAL PAIN, NO n/v OFFICE WORKER : No headache , focal deficit. Musculoskel : N Ext. : Pedal pulses intact, no edema or calf pain Derm : N Psych : N. PE. Pt. is alert awake in no distress. V.S As noted in the chart Head ,ear nose,throat and eyes : Normal. Neck : Supple with normal carotids. Lungs: DIMINISHED BREATH SOUNDS AT THE BASES Heart : S1 & S2 normal . . No murmur. S4 + Abd : Soft , postprocedure.less tender. Neuro : Moves all ext. with no localized deficit. Ext : No edema with intact pulses. Neg. calf tenderness Derm : No rashes or decubitus ulcer. Radiology/Labs . WBC 6.5, H&H stable .Pancreatic cyst CEA 197 normal lfts improving. Vanco levels trough <5.0 not notified by RN filteration operator. urine culture positive for MRSA. Objective - Vital Signs/Intake and Output Vital Signs (last 24 hours): Temp Pulse Resp BP Pulse Ox 98.1 F 73 18 113/74 98 10/19/16 08:41 10/19/16 08:41 10/19/16 08:41 10/19/16 08:41 10/19/16 08:41 Intake and Output: 10/19/16 10/19/16 06:59 18:59 Intake Total 150 Balance 150 - Medications Medications: Current Medications Enoxaparin Sodium (Lovenox) 40 mg SC DAILY [facility] Last Admin: 10/19/16 09:57 Dose: 40 mg Famotidine (Pepcid) 20 mg PO BID [facility] Last Admin: 10/19/16 09:56 Dose: 20 mg Aztreonam 1 gm/ Sodium (Chloride) 100 mls @ 100 mls/hr IVPB Q8H [facility] Last Admin: 10/19/16 06:09 Dose: 100 mls/hr Metronidazole (Flagyl) 500 mg in 100 mls @ 100 mls/hr IVPB Q8H [facility] Last Admin: 10/19/16 09:56 Dose: 100 mls/hr Vancomycin HCl 1.5 gm/ Sodium (Chloride) 500 mls @ 200 mls/hr IVPB Q24H [facility] Last Admin: 10/18/16 23:17 Dose: 200 mls/hr Morphine Sulfate (Morphine) 3 mg IV Q4 PRN PRN Reason: Pain, severe (8-10) Last Admin: 10/19/16 02:38 Dose: 3 mg Ondansetron HCl (Zofran Inj) 4 mg IVP Q4H PRN PRN Reason: Nausea/Vomiting Last Admin: 10/17/16 14:44 Dose: 4 mg Polyethylene Glycol (Miralax) 17 gm PO DAILY [facility] Last Admin: 10/18/16 13:49 Dose: Not Given - Labs Labs: 10/18/16 07:51 10/18/16 07:51 PT 15.5 SECONDS (9.7-12.2) H 10/18/16 07:51 INR 1.3 10/18/16 07:51 APTT 32 SECONDS (21-34) 10/18/16 07:51 Assessment and Plan (1) Acute pancreatitis Status: Acute (2) Vomiting Status: Acute (3) UTI (urinary tract infection) Status: Acute (4) Pneumonia Status: Acute - Assessment and Plan (Free Text) Assessment: IMPRESSION; ABDOMINAL PAIN ACUTE PANCREATITIS /NECROTIC PANCREAS s/p FNA /EUS 10/16/16 S/P EUS/CYSTOGASTROSTOMY 10/18/16 CHOLYCYSTITIS- SLUDGE GB MATURING PSEUDOCYST LEFT LOWER LOBE PNEUMONIA/EFFUSION.. UTI.( +VE mrsa) PLAN; PER GI.- CONTINUE IV AZACTAM 1GM IV Q 8HRLY. 10/12/16. ON IV FLAGYL FOR ANAEROBIC COVERAGE.10/12/16. on IV VANCOMYCIN 1.5 G ONCE A DAY DAILY STARTED 10/14/16, 10/18 Follow-up Vanco trough level prior to the fourth dose. Monitor renal functions closely. CONTACT PRECAUTIONS. CASE DISCUSSED WITH THE staff
[2016-10-19 12:08] LABS: BILIRUBIN,TOTAL 0.9 mg/dL (0.2-1.3); GFR AFRICAN-AMERICAN > 60
[2016-10-19 12:09] LABS: ALKALINE PHOSPHATASE 121 U/L (38-126); ALT/SGPT 86 U/L (9-52); AST/SGOT 51 U/L (14-36); BLOOD UREA NITROGEN 4 mg/dL (7-17); CARBON DIOXIDE 25 mmol/L (22-30); GLUCOSE,RANDOM 93 mg/dL (65-105); TOTAL PROTEIN 6.9 g/dL (6.3-8.3)
[2016-10-19 12:10] LABS: CALCIUM 8.7 mg/dl (8.6-10.4)
[2016-10-19] MEDS: POLYETHYLENE GLYCOL 3350 17 GM/Dose PACKET PO SCH (14:15)
[2016-10-19] MEDS: Vancomycin 1.5 GM in Sodium Chloride 0.9% 500 ML IVPB SCH (22:32)
[2016-10-20] MEDS: Morphine 4 MG/ML VIAL IV PRN ×4 (01:17→22:30)
[2016-10-20] MEDS: metroNIDAZOLE IV 500 mg/100 ml 500 MG/100 ML BAG IVPB SCH ×3 (02:06→18:13)
[2016-10-20] MEDS: Aztreonam 1 GM in Sodium Chloride 0.9% 100 ML IVPB SCH ×2 (06:28→14:12)
[2016-10-20 07:39] LABS: BASO # 0.1 K/uL (0.0-0.2); BASO % 1.3 % (0.0-2.0); EOS # 0.3 K/uL (0.0-0.7); EOS % 3.4 % (0.0-4.0); HEMATOCRIT 35.3 % (34.0-47.0); LYMPH # 1.6 K/uL (1.0-4.3); MEAN CORPUSCULAR HEMOGLOBIN 26.9 pg (27.0-31.0); MEAN CORPUSCULAR HGB CONC 33.2 g/dL (33.0-37.0); MEAN PLATELET VOLUME 8.1 fL (7.2-11.7); MONO # 0.8 K/uL (0.0-0.8); MONO % 10.6 % (0.0-10.0); RED CELL DISTRIBUTION WIDTH 15.3 % (11.5-14.5); WHITE BLOOD COUNT 7.6 K/uL (4.8-10.8)
[2016-10-20 08:08] LABS: CHLORIDE 100 mmol/L (98-107)
[2016-10-20 08:09] LABS: POTASSIUM 3.6 mmol/L (3.6-5.2); SODIUM 139 mmol/L (132-148)
[2016-10-20 08:11] LABS: ALB/GLOB RATIO 1.1 (1.0-2.1); ALKALINE PHOSPHATASE 96 U/L (38-126); ALT/SGPT 80 U/L (9-52); AST/SGOT 44 U/L (14-36); BILIRUBIN,TOTAL 0.8 mg/dL (0.2-1.3); BLOOD UREA NITROGEN 6 mg/dL (7-17); CALCIUM 8.8 mg/dl (8.6-10.4); CARBON DIOXIDE 23 mmol/L (22-30); GFR AFRICAN-AMERICAN > 60; GLUCOSE,RANDOM 85 mg/dL (65-105); TOTAL PROTEIN 6.5 g/dL (6.3-8.3)
[2016-10-20] MEDS ORDERED: Iodixanol 320 MG/ML 100 ML BOTTLE IV ONE (09:59)
[2016-10-20] MEDS: Enoxaparin 40 mg Syringe SC SCH (10:54)
[2016-10-20] MEDS: POLYETHYLENE GLYCOL 3350 17 GM/Dose PACKET PO SCH (10:54)
--- NOTE | 2016-10-20 11:31 | CP.PCM.PN ---
Subjective - Date & Time of Evaluation Date of Evaluation: 10/20/16 Time of Evaluation: 11:23 - Subjective Subjective: General Surgery - Dr. Carvajal Pt S&E. KAMARO. Pt still with mild abdominal pain but states it is improving since stent was placed. She is tolerating liquid diet. No N/V, F/C, SOB/Cp. Objective - Vital Signs/Intake and Output Vital Signs (last 24 hours): Temp Pulse Resp BP Pulse Ox 98.3 F 73 18 112/73 97 10/20/16 08:07 10/20/16 08:07 10/20/16 08:07 10/20/16 08:07 10/20/16 08:07 - Medications Medications: Current Medications Enoxaparin Sodium (Lovenox) 40 mg SC DAILY [facility] Last Admin: 10/20/16 10:54 Dose: 40 mg Famotidine (Pepcid) 20 mg PO BID [facility] Last Admin: 10/20/16 10:53 Dose: 20 mg Aztreonam 1 gm/ Sodium (Chloride) 100 mls @ 100 mls/hr IVPB Q8H [facility] Last Admin: 10/20/16 06:28 Dose: 100 mls/hr Metronidazole (Flagyl) 500 mg in 100 mls @ 100 mls/hr IVPB Q8H [facility] Last Admin: 10/20/16 10:53 Dose: 100 mls/hr Vancomycin HCl 1.5 gm/ Sodium (Chloride) 500 mls @ 200 mls/hr IVPB Q24H [facility] Last Admin: 10/19/16 22:32 Dose: 200 mls/hr Morphine Sulfate (Morphine) 3 mg IV Q4 PRN PRN Reason: Pain, severe (8-10) Last Admin: 10/20/16 07:35 Dose: 3 mg Ondansetron HCl (Zofran Inj) 4 mg IVP Q4H PRN PRN Reason: Nausea/Vomiting Last Admin: 10/17/16 14:44 Dose: 4 mg Polyethylene Glycol (Miralax) 17 gm PO DAILY [facility] Last Admin: 10/20/16 10:54 Dose: Not Given - Labs Labs: 10/20/16 07:17 10/20/16 07:17 PT 15.5 SECONDS (9.7-12.2) H 10/18/16 07:51 INR 1.3 10/18/16 07:51 APTT 32 SECONDS (21-34) 10/18/16 07:51 - Constitutional Appears: No Acute Distress - Head Exam Head Exam: ATRAUMATIC, NORMAL INSPECTION, NORMOCEPHALIC - Eye Exam Eye Exam: Normal appearance - Respiratory Exam Respiratory Exam: NORMAL BREATHING PATTERN. absent: Respiratory Distress - GI/Abdominal Exam GI & Abdominal Exam: Soft, Tenderness (mild ttp ruq and epigastric). absent: Distended, Firm, Guarding, Rigid, Rebound - Neurological Exam Neurological Exam: Alert, Oriented x3 - Psychiatric Exam Psychiatric exam: Normal Affect, Normal Mood - Skin Skin Exam: Dry, Intact Assessment and Plan - Assessment and Plan (Free Text) Assessment: 26F w/ recurrent pancreatitis likely 2/2 gb sludge, w/ pseudocyst and walled off necrosis, s/p cystgastrostomy -Continue liquid diet, advance slowly as per GI -F/U CT pancreatic protocol -Continue IVF, Pain control prn -Pt understands indication for lap cholecystectomy, however states that she would like to avoid surgery at this time and prefers to schedule as outpatient -Will continue to follow -Further recc. per Dr. Wei Bach PGY3
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
--- NOTE | 2016-10-20 16:53 | CT ---
PROCEDURE: CT Abdomen and Pelvis with contrast HISTORY: eval cyst drainage s/p cyst gastrostomy COMPARISON: 10/17/16. TECHNIQUE: Contrast dose: Radiation dose: Total exam DLP = mGy-cm. This CT exam was performed using one or more of the following dose reduction techniques: Automated exposure control, adjustment of the mA and/or kV according to patient size, and/or use of iterative reconstruction technique. FINDINGS: LOWER THORAX: Unremarkable. LIVER: Unremarkable. No gross lesion or ductal dilatation. GALLBLADDER AND BILE DUCTS: Unremarkable. PANCREAS: There has been decrease in pancreatic pseudocyst measurement of a 6.4 by 4.7cm, status murphy marsupiallzation. SPLEEN: Unremarkable. ADRENALS: Unremarkable. No mass. KIDNEYS AND URETERS: Unremarkable. No hydronephrosis. No solid mass. VASCULATURE: Unremarkable. No aortic aneurysm. BOWEL: Unremarkable. No obstruction. No gross mural thickening. APPENDIX: Normal appendix. PERITONEUM: Unremarkable. No free fluid. No free air. LYMPH NODES: Unremarkable. No enlarged lymph nodes. BLADDER: Unremarkable. REPRODUCTIVE: Unremarkable. BONES: No acute fracture. OTHER FINDINGS: None. IMPRESSION: Decrease in size of pancreatic pseudocyst status post intervention.
--- NOTE | 2016-10-20 19:34 | CP.PCM.PN ---
Subjective - Date & Time of Evaluation Date of Evaluation: 10/20/16 Time of Evaluation: 19:34 - Subjective Subjective: afebrile, Continues to feel better. Labs reviewed; Repeat urine culture negative growth. BODY FLUID 10/16/16 POSITIVE FOR STREPTOCOCCUS PARASANGUINOUS S- VANCOMYCIN, CLEOCIN,CTR LFTS IMPROVING CREATININE 0.6 /bun 20. CXR 10/[address]EASE. Ct PANCREATIC PROTOCOL 10/20 NOTED-DEGREES IN size of pseudocyst. ( see full report ) CASE DISCUSSED WITH THE STAFF. DC IV aZACTAM CONTINUE iv VANCOMYCIN 1.5 GM ONCE A DAY DAILY.10/14 VANCO TROUGH LEVEL TODAY. CONTINUE iv fLAGYL 500 EVERY 8 HOURLY. 10/12 ADD IV GENTAMICIN 100 MG LOADING DOSE 10/20 fOLLOWED BY 80 MG ONCE DAILY 4 DOSES FOR SYNERGY WITH STREPTOCOCCUS- PARASANGUINOUS.. Objective - Vital Signs/Intake and Output Vital Signs (last 24 hours): Temp Pulse Resp BP Pulse Ox 98.7 F 74 20 110/70 98 10/20/16 15:55 10/20/16 15:55 10/20/16 15:55 10/20/16 15:55 10/20/16 15:55 Intake and Output: 10/20/16 10/21/16 18:59 06:59 Intake Total 600 Balance 600 - Medications Medications: Current Medications Enoxaparin Sodium (Lovenox) 40 mg SC DAILY [facility] Last Admin: 10/20/16 10:54 Dose: 40 mg Famotidine (Pepcid) 20 mg PO BID [facility] Last Admin: 10/20/16 18:13 Dose: 20 mg Metronidazole (Flagyl) 500 mg in 100 mls @ 100 mls/hr IVPB Q8H [facility] Last Admin: 10/20/16 18:13 Dose: 100 mls/hr Vancomycin HCl 1.5 gm/ Sodium (Chloride) 500 mls @ 200 mls/hr IVPB Q24H [facility] Last Admin: 10/19/16 22:32 Dose: 200 mls/hr Morphine Sulfate (Morphine) 3 mg IV Q4 PRN PRN Reason: Pain, severe (8-10) Last Admin: 10/20/16 17:15 Dose: 3 mg Ondansetron HCl (Zofran Inj) 4 mg IVP Q4H PRN PRN Reason: Nausea/Vomiting Last Admin: 10/17/16 14:44 Dose: 4 mg Polyethylene Glycol (Miralax) 17 gm PO DAILY [facility] Last Admin: 10/20/16 10:54 Dose: Not Given - Labs Labs: 10/20/16 07:17 10/20/16 07:17 PT 15.5 SECONDS (9.7-12.2) H 10/18/16 07:51 INR 1.3 10/18/16 07:51 APTT 32 SECONDS (21-34) 10/18/16 07:51 - Constitutional Appears: No Acute Distress - Head Exam Head Exam: NORMAL INSPECTION - Eye Exam Eye Exam: EOMI, PERRL. absent: Scleral icterus - ENT Exam ENT Exam: Normal Oropharynx - Neck Exam Neck Exam: Normal Inspection - Respiratory Exam Respiratory Exam: Rhonchi (FEW RHONCHI LEFT BASE.) - Cardiovascular Exam Cardiovascular Exam: REGULAR RHYTHM, +S1, +S2 - GI/Abdominal Exam GI & Abdominal Exam: Soft, Tenderness (MILD TENDERNESS ON DEEP PALPATION EPIGASTRIC REGION.), Normal Bowel Sounds - Extremities Exam Extremities Exam: Full ROM. absent: Pedal Edema - Neurological Exam Neurological Exam: Awake, CN II-XII Intact, Normal Gait, Oriented x3 - Psychiatric Exam Psychiatric exam: Normal Mood - Skin Skin Exam: Normal Color, Warm Assessment and Plan (1) Acute pancreatitis Status: Acute (2) Vomiting Status: Acute (3) UTI (urinary tract infection) Status: Acute (4) Pneumonia Status: Acute - Assessment and Plan (Free Text) Assessment: IMPRESSION; ABDOMINAL PAIN ACUTE PANCREATITIS /NECROTIC PANCREAS s/p FNA /EUS 10/16/16 S/P EUS/CYSTOGASTROSTOMY 10/18/16 CHOLYCYSTITIS- SLUDGE GB MATURING PSEUDOCYST LEFT LOWER LOBE PNEUMONIA/EFFUSION.. UTI.( +VE mrsa) PLAN; PER GI.-advance DIET DC IV AZACTAM 1GM IV Q 8HRLY. 10/12/16.-10/20 ON IV FLAGYL FOR ANAEROBIC COVERAGE.10/12/16. on IV VANCOMYCIN 1.5 G ONCE A DAY DAILY STARTED 10/14/16, 10/18 Follow-up Vanco trough level prior to the fourth dose. ADD IV GENTAMICIN 100 MG LOADING DOSE 10/20 fOLLOWED BY 80 MG ONCE DAILY 4 DOSES FOR SYNERGY WITH STREPTOCOCCUS- PARASANGUINOUS.. Monitor renal functions closely. DC CONTACT PRECAUTIONS.
--- NOTE | 2016-10-20 21:27 | CP.PCM.PN ---
Subjective - Date & Time of Evaluation Date of Evaluation: 10/19/16 Time of Evaluation: 20:19 - Subjective Subjective: LESS ABDOMINAL PAIN, NO NAUSEA, NO VOMITING, NO FEVER Objective - Vital Signs/Intake and Output Vital Signs (last 24 hours): Temp Pulse Resp BP Pulse Ox 98.7 F 74 20 110/70 98 10/20/16 15:55 10/20/16 15:55 10/20/16 15:55 10/20/16 15:55 10/20/16 15:55 Intake and Output: 10/20/16 10/21/16 18:59 06:59 Intake Total 600 Balance 600 - Medications Medications: Current Medications Enoxaparin Sodium (Lovenox) 40 mg SC DAILY [facility] Last Admin: 10/20/16 10:54 Dose: 40 mg Famotidine (Pepcid) 20 mg PO BID [facility] Last Admin: 10/20/16 18:13 Dose: 20 mg Metronidazole (Flagyl) 500 mg in 100 mls @ 100 mls/hr IVPB Q8H [facility] Last Admin: 10/20/16 18:13 Dose: 100 mls/hr Vancomycin HCl 1.5 gm/ Sodium (Chloride) 500 mls @ 200 mls/hr IVPB Q24H [facility] Last Admin: 10/19/16 22:32 Dose: 200 mls/hr Gentamicin Sulfate 80 mg/ (Sodium Chloride) 102 mls @ 100 mls/hr IVPB Q24H [facility] Stop: 10/25/16 20:01 Gentamicin Sulfate 100 mg/ (Sodium Chloride) 102.5 mls @ 100 mls/hr IVPB ONCE ONE Stop: 10/20/16 21:31 Morphine Sulfate (Morphine) 3 mg IV Q4 PRN PRN Reason: Pain, severe (8-10) Last Admin: 10/20/16 17:15 Dose: 3 mg Ondansetron HCl (Zofran Inj) 4 mg IVP Q4H PRN PRN Reason: Nausea/Vomiting Last Admin: 10/17/16 14:44 Dose: 4 mg Polyethylene Glycol (Miralax) 17 gm PO DAILY [facility] Last Admin: 10/20/16 10:54 Dose: Not Given - Labs Labs: 10/20/16 07:17 10/20/16 07:17 PT 15.5 SECONDS (9.7-12.2) H 10/18/16 07:51 INR 1.3 08/04/17 07:51 APTT 32 SECONDS (21-34) 10/18/16 07:51 - Constitutional Appears: Non-toxic, No Acute Distress - Head Exam Head Exam: ATRAUMATIC, NORMAL INSPECTION, NORMOCEPHALIC - Eye Exam Eye Exam: EOMI, Normal appearance Pupil Exam: NORMAL ACCOMODATION, PERRL - ENT Exam ENT Exam: Mucous Membranes Moist - Neck Exam Neck Exam: Full ROM - Respiratory Exam Respiratory Exam: Clear to Ausculation Bilateral, NORMAL BREATHING PATTERN - Cardiovascular Exam Cardiovascular Exam: +S1, +S2 - GI/Abdominal Exam GI & Abdominal Exam: Tenderness, Normal Bowel Sounds - Rectal Exam Rectal Exam: NORMAL INSPECTION - Exam Exam: NORMAL INSPECTION Assessment and Plan (1) Acute pancreatitis Assessment & Plan: IMPROVING Status: Acute (2) Cholelithiases Status: Chronic
--- NOTE | 2016-10-20 22:27 | CP.PCM.PN ---
Subjective - Date & Time of Evaluation Date of Evaluation: 10/20/16 Time of Evaluation: 20:20 - Subjective Subjective: FEELS BETTER, NO SOB, NO CHEST PAIN, NO COUGH Objective - Vital Signs/Intake and Output Vital Signs (last 24 hours): Temp Pulse Resp BP Pulse Ox 98.7 F 74 20 110/70 98 10/20/16 15:55 10/20/16 15:55 10/20/16 15:55 10/20/16 15:55 10/20/16 15:55 Intake and Output: 10/20/16 10/21/16 18:59 06:59 Intake Total 600 Balance 600 - Medications Medications: Current Medications Enoxaparin Sodium (Lovenox) 40 mg SC DAILY [facility] Last Admin: 10/20/16 10:54 Dose: 40 mg Famotidine (Pepcid) 20 mg PO BID [facility] Last Admin: 10/20/16 18:13 Dose: 20 mg Metronidazole (Flagyl) 500 mg in 100 mls @ 100 mls/hr IVPB Q8H [facility] Last Admin: 10/20/16 18:13 Dose: 100 mls/hr Vancomycin HCl 1.5 gm/ Sodium (Chloride) 500 mls @ 200 mls/hr IVPB Q24H [facility] Last Admin: 10/19/16 22:32 Dose: 200 mls/hr Gentamicin Sulfate 80 mg/ (Sodium Chloride) 102 mls @ 100 mls/hr IVPB Q24H [facility] Stop: 10/25/16 20:01 Morphine Sulfate (Morphine) 3 mg IV Q4 PRN PRN Reason: Pain, severe (8-10) Last Admin: 10/20/16 17:15 Dose: 3 mg Ondansetron HCl (Zofran Inj) 4 mg IVP Q4H PRN PRN Reason: Nausea/Vomiting Last Admin: 10/17/16 14:44 Dose: 4 mg Polyethylene Glycol (Miralax) 17 gm PO DAILY [facility] Last Admin: 10/20/16 10:54 Dose: Not Given - Labs Labs: 10/20/16 07:17 10/20/16 07:17 PT 15.5 SECONDS (9.7-12.2) H 10/18/16 07:51 INR 1.3 10/18/16 07:51 APTT 32 SECONDS (21-34) 10/18/16 07:51 - Constitutional Appears: Non-toxic, No Acute Distress - Head Exam Head Exam: ATRAUMATIC, NORMAL INSPECTION, NORMOCEPHALIC - ENT Exam ENT Exam: Mucous Membranes Moist, Normal Exam - Respiratory Exam Respiratory Exam: Clear to Ausculation Bilateral, NORMAL BREATHING PATTERN - Cardiovascular Exam Cardiovascular Exam: REGULAR RHYTHM - GI/Abdominal Exam GI & Abdominal Exam: Soft, Normal Bowel Sounds Assessment and Plan (1) Acute pancreatitis Status: Acute (2) Cholelithiases Status: Chronic
[2016-10-21] MEDS: Vancomycin 1.5 GM in Sodium Chloride 0.9% 500 ML IVPB SCH (00:12)
[2016-10-21] MEDS: Morphine 4 MG/ML VIAL IV PRN ×4 (03:22→23:57)
[2016-10-21] MEDS: metroNIDAZOLE IV 500 mg/100 ml 500 MG/100 ML BAG IVPB SCH ×3 (03:25→17:46)
[2016-10-21] MEDS ORDERED: Propofol 10 mg/ml Inj (20 ML) ONE (11:48)
[2016-10-21] MEDS ORDERED: Midazolam 2 MG/2 ML VIAL ONE (11:48)
[2016-10-21] MEDS ORDERED: Rocuronium 10 mg/ml (10 ml) ONE (12:00)
[2016-10-21] MEDS ORDERED: Iohexol 240 (50 ml) ONE (12:06)
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
--- NOTE | 2016-10-21 12:57 | CP.PCM.PN ---
Subjective - Date & Time of Evaluation Date of Evaluation: 10/21/16 Time of Evaluation: 06:45 - Subjective Subjective: General Surgery- Dr. Carvajal PT S&E at bedside this AM. No acute events overnight. Pain is manageable. Currently NPO for Necrosectomy by GI today. Denies N/V F/C SOB/CP Objective - Vital Signs/Intake and Output Vital Signs (last 24 hours): Temp Pulse Resp BP Pulse Ox 98.2 F 87 13 115/73 100 10/21/16 12:30 10/21/16 12:30 10/21/16 12:30 10/21/16 12:30 10/21/16 12:30 Intake and Output: 10/21/16 10/21/16 06:59 18:59 Intake Total 0 Balance 0 - Medications Medications: Current Medications Enoxaparin Sodium (Lovenox) 40 mg SC DAILY [facility] Last Admin: 10/20/16 10:54 Dose: 40 mg Famotidine (Pepcid) 20 mg PO BID [facility] Last Admin: 10/21/16 09:44 Dose: 20 mg Metronidazole (Flagyl) 500 mg in 100 mls @ 100 mls/hr IVPB Q8H [facility] Last Admin: 10/21/16 09:44 Dose: 100 mls/hr Vancomycin HCl 1.5 gm/ Sodium (Chloride) 500 mls @ 200 mls/hr IVPB Q24H [facility] Last Admin: 10/21/16 00:12 Dose: 200 mls/hr Gentamicin Sulfate 80 mg/ (Sodium Chloride) 102 mls @ 100 mls/hr IVPB Q24H [facility] Stop: 10/25/16 20:01 Morphine Sulfate (Morphine) 3 mg IV Q4 PRN PRN Reason: Pain, severe (8-10) Last Admin: 10/21/16 09:47 Dose: 3 mg Ondansetron HCl (Zofran Inj) 4 mg IVP Q4H PRN PRN Reason: Nausea/Vomiting Last Admin: 10/17/16 14:44 Dose: 4 mg Polyethylene Glycol (Miralax) 17 gm PO DAILY [facility] Last Admin: 10/20/16 10:54 Dose: Not Given - Labs Labs: 10/20/16 07:17 10/20/16 07:17 PT 15.5 SECONDS (9.7-12.2) H 10/18/16 07:51 INR 1.3 10/18/16 07:51 APTT 32 SECONDS (21-34) 10/18/16 07:51 - Constitutional Appears: Non-toxic, No Acute Distress - Head Exam Head Exam: ATRAUMATIC - Eye Exam Eye Exam: EOMI - ENT Exam ENT Exam: Mucous Membranes Moist - Respiratory Exam Respiratory Exam: NORMAL BREATHING PATTERN. absent: Accessory Muscle Use, Chest Wall Tenderness, Rhonchi, Wheezes - Cardiovascular Exam Cardiovascular Exam: +S1, +S2 - GI/Abdominal Exam GI & Abdominal Exam: Soft, Normal Bowel Sounds. absent: Distended, Firm, Organomegaly, Rebound - Extremities Exam Extremities Exam: Normal Inspection. absent: Calf Tenderness - Neurological Exam Neurological Exam: Alert, Awake, Oriented x3 - Skin Skin Exam: Normal Color Assessment and Plan - Assessment and Plan (Free Text) Assessment: 26F w/ recurrent pancreatitis likely 2/2 gb sludge, w/ pseudocyst and walled off necrosis, s/p cystgastrostomy Plan: - plan for necrosectomy by GI today -F/U CT pancreatic protocol -Continue IVF, Pain control prn -Pt understands indication for lap cholecystectomy, however states that she would like to avoid surgery at this time and prefers to schedule as outpatient * No acute surgical intervention at this time -Will continue to follow while pt is in house -Further recs per Dr. Wei Jones PGY1
--- NOTE | 2016-10-21 16:09 | CP.PCM.PN ---
Subjective - Date & Time of Evaluation Date of Evaluation: 10/21/16 Time of Evaluation: 16:09 - Subjective Subjective: CHIEF COMPLAINTS TODAY : SEEN POST OPTIVE 10/21/16 S/P ERCP /AND NECROSECTOMY 10/21/16 2HRS IN OR BY DR AL. SLIGHTLY DROWSY afebrile c/o abdominal discomfort presently. S/P EUS CYSTOGASTROSTOMY 10/18/16. S/P EUS 10/16/16-FINDINGS NOTED EXTENSIVE SLUDGE GALLBLADDER,LARGE PANCREATIC FLUID COLLECTION S/P DIAGNOSTIC FNA ( see full report ) ROS HEENT : N. 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 Musculoskel : N Ext. : Pedal pulses intact, no edema or calf pain Derm : N Psych : N. PE. Pt. is alert awake in no distress. V.S As noted in the chart Head ,ear nose,throat and eyes : Normal. Neck : Supple with normal carotids. Lungs: fair entry. Heart : S1 & S2 normal . . No murmur. S4 + Abd : Soft , postprocedure.TENDERNESS., BOWEL SOUNDS.HYPOACTIVE. Neuro : Moves all ext. with no localized deficit. Ext : No edema with intact pulses. Neg. calf tenderness Derm : No rashes or decubitus ulcer. Radiology/Labs . vANCO TROUGH 10/21 < 5.0 LOW ( ON 1.5 G VANCOMYCIN. ) Repeat urine culture negative growth. BODY FLUID 10/16/16 POSITIVE FOR STREPTOCOCCUS PARASANGUINOUS S- VANCOMYCIN, CLEOCIN,CTR LFTS IMPROVING CREATININE 0.6 /bun 20. Objective - Vital Signs/Intake and Output Vital Signs (last 24 hours): Temp Pulse Resp BP Pulse Ox 98.2 F 87 13 115/73 100 10/21/16 12:30 10/21/16 12:30 10/21/16 12:30 10/21/16 12:30 10/21/16 12:30 Intake and Output: 10/21/16 10/21/16 06:59 18:59 Intake Total 1025 Balance 1025 - Medications Medications: Current Medications Enoxaparin Sodium (Lovenox) 40 mg SC DAILY [facility] Last Admin: 10/20/16 10:54 Dose: 40 mg Famotidine (Pepcid) 20 mg PO BID [facility] Last Admin: 10/21/16 09:44 Dose: 20 mg Metronidazole (Flagyl) 500 mg in 100 mls @ 100 mls/hr IVPB Q8H [facility] Last Admin: 10/21/16 09:44 Dose: 100 mls/hr Vancomycin HCl 1.5 gm/ Sodium (Chloride) 500 mls @ 200 mls/hr IVPB Q24H [facility] Last Admin: 10/21/16 00:12 Dose: 200 mls/hr Gentamicin Sulfate 80 mg/ (Sodium Chloride) 102 mls @ 100 mls/hr IVPB Q24H [facility] Stop: 10/25/16 20:01 Morphine Sulfate (Morphine) 3 mg IV Q4 PRN PRN Reason: Pain, severe (8-10) Last Admin: 10/21/16 09:47 Dose: 3 mg Morphine Sulfate (Morphine) 1 mg IVP Q10M PRN PRN Reason: Pain, moderate (4-7) Stop: 10/21/16 16:53 Ondansetron HCl (Zofran Inj) 4 mg IVP Q4H PRN PRN Reason: Nausea/Vomiting Last Admin: 10/17/16 14:44 Dose: 4 mg Ondansetron HCl (Zofran Inj) 4 mg IVP ONCE PRN PRN Reason: Nausea/Vomiting Stop: 10/21/16 16:54 Polyethylene Glycol (Miralax) 17 gm PO DAILY [facility] Last Admin: 10/20/16 10:54 Dose: Not Given - Labs Labs: 10/20/16 07:17 10/20/16 07:17 PT 15.5 SECONDS (9.7-12.2) H 10/18/16 07:51 INR 1.3 10/18/16 07:51 APTT 32 SECONDS (21-34) 10/18/16 07:51 Assessment and Plan (1) Acute pancreatitis Status: Acute (2) Vomiting Status: Acute (3) UTI (urinary tract infection) Assessment & Plan: urine cultures repeat negative. Patient off isolation. Status: Acute (4) Pneumonia Assessment & Plan: repeat chest x-ray negative. Patient denies cough, shortness of breath or chest pain. Status: Acute - Assessment and Plan (Free Text) Plan: INCREASE iv VANCOMYCIN 1 GM EVERY 12 HOURLY DAILY.10/14, 10/21/16 CONTINUE iv fLAGYL 500 EVERY 8 HOURLY. 10/12 ADD IV GENTAMICIN 100 MG LOADING DOSE 10/20 fOLLOWED BY 80 MG ONCE DAILY 4 DOSES FOR SYNERGY WITH STREPTOCOCCUS- PARASANGUINOUS. as per GI patient again for necrosectomy Friday.
[2016-10-21] MEDS ORDERED: Morphine 4 MG/ML VIAL IVP PRN (16:15)
--- NOTE | 2016-10-21 16:55 | RAD ---
PROCEDURE: Intraoperative Fluoroscopy. HISTORY: PANCREATITIS FINDINGS: Fluoroscopic assistance was provided for ERCP. Please refer to the (continuous mode) utilized during the procedure: 144.3
[2016-10-21 20:42] LABS: HEMATOCRIT 33.3 % (34.0-47.0); MEAN CELL VOLUME 81.1 fL (81.0-99.0); MEAN CORPUSCULAR HEMOGLOBIN 26.4 pg (27.0-31.0); MEAN CORPUSCULAR HGB CONC 32.6 g/dL (33.0-37.0); MEAN PLATELET VOLUME 8.2 fL (7.2-11.7); RED CELL DISTRIBUTION WIDTH 15.2 % (11.5-14.5); WHITE BLOOD COUNT 17.3 K/uL (4.8-10.8)
[2016-10-21 20:51] LABS: CHLORIDE 97 mmol/L (98-107); INR 1.2
[2016-10-21 20:52] LABS: POTASSIUM 3.5 mmol/L (3.6-5.2); SODIUM 137 mmol/L (132-148)
[2016-10-21 20:54] LABS: ALB/GLOB RATIO 1.2 (1.0-2.1); ALKALINE PHOSPHATASE 69 U/L (38-126); AST/SGOT 31 U/L (14-36); BILIRUBIN,TOTAL 0.7 mg/dL (0.2-1.3); CARBON DIOXIDE 20 mmol/L (22-30); GFR AFRICAN-AMERICAN > 60
[2016-10-21 20:55] LABS: ALT/SGPT 67 U/L (9-52); BLOOD UREA NITROGEN 5 mg/dL (7-17); CALCIUM 8.2 mg/dl (8.6-10.4); GLUCOSE,RANDOM 94 mg/dL (65-105)
--- NOTE | 2016-10-21 23:46 | CP.PCM.PN ---
Subjective - Date & Time of Evaluation Date of Evaluation: 10/21/16 Time of Evaluation: 20:24 - Subjective Subjective: S/P EGD, AND SEMychal UNDERWENT CLOSED GASTROSTOMY, AND SHE IS POSTOPERATIVELY HAS SOME HEMATEMESIS, WEAK, NO CHEST PAIN, SHE IS IN DISTRESS Objective - Vital Signs/Intake and Output Vital Signs (last 24 hours): Temp Pulse Resp BP Pulse Ox 97.3 F L 100 H 18 110/79 99 10/21/16 16:22 10/21/16 16:22 10/21/16 16:22 10/21/16 16:22 10/21/16 16:22 Intake and Output: 10/21/16 10/22/16 18:59 06:59 Intake Total 1225 200 Output Total 200 Balance 1025 200 - Medications Medications: Current Medications Famotidine (Pepcid) 20 mg IVP Q12H [facility] Last Admin: 10/21/16 19:28 Dose: 20 mg Metronidazole (Flagyl) 500 mg in 100 mls @ 100 mls/hr IVPB Q8H [facility] Last Admin: 10/21/16 17:46 Dose: 100 mls/hr Vancomycin HCl 1.5 gm/ Sodium (Chloride) 500 mls @ 200 mls/hr IVPB Q24H [facility] Last Admin: 10/21/16 00:12 Dose: 200 mls/hr Gentamicin Sulfate 80 mg/ (Sodium Chloride) 102 mls @ 100 mls/hr IVPB Q24H [facility] Stop: 10/25/16 20:01 Last Admin: 10/21/16 19:28 Dose: 100 mls/hr Morphine Sulfate (Morphine) 3 mg IV Q4 PRN PRN Reason: Pain, severe (8-10) Last Admin: 10/21/16 20:04 Dose: 3 mg Ondansetron HCl (Zofran Inj) 4 mg IVP Q4H PRN PRN Reason: Nausea/Vomiting Last Admin: 10/21/16 20:04 Dose: 4 mg Polyethylene Glycol (Miralax) 17 gm PO DAILY [facility] Last Admin: 10/20/16 10:54 Dose: Not Given - Labs Labs: 10/21/16 20:24 10/21/16 20:24 PT 13.3 SECONDS (9.7-12.2) H 10/21/16 20:24 INR 1.2 10/21/16 20:24 APTT 30 SECONDS (21-34) 10/21/16 20:24 - Constitutional Appears: Non-toxic, In Acute Distress, Chronically Ill - Head Exam Head Exam: ATRAUMATIC, NORMAL INSPECTION, NORMOCEPHALIC - Eye Exam Eye Exam: EOMI, Normal appearance - ENT Exam ENT Exam: Mucous Membranes Moist, Normal Exam - Neck Exam Neck Exam: Normal Inspection - Respiratory Exam Respiratory Exam: Clear to Ausculation Bilateral, NORMAL BREATHING PATTERN - GI/Abdominal Exam GI & Abdominal Exam: Tenderness, Hyperactive Bowel Sounds Assessment and Plan (1) Acute pancreatitis Assessment & Plan: CYST PANCREASE, S/O GASTROSTOMY BY DR AL Status: Acute (2) Cholelithiases Status: Chronic
[2016-10-22] MEDS: Vancomycin 1.5 GM in Sodium Chloride 0.9% 500 ML IVPB SCH (00:07)
[2016-10-22] MEDS: metroNIDAZOLE IV 500 mg/100 ml 500 MG/100 ML BAG IVPB SCH ×3 (02:48→18:10)
[2016-10-22] MEDS: Morphine 4 MG/ML VIAL IV PRN ×3 (04:37→20:01)
[2016-10-22 06:39] LABS: BASO # 0.1 K/uL (0.0-0.2); BASO % 0.7 % (0.0-2.0); EOS # 0.3 K/uL (0.0-0.7); EOS % 4.2 % (0.0-4.0); HEMATOCRIT 28.6 % (34.0-47.0); LYMPH # 1.2 K/uL (1.0-4.3); LYMPH % 15.3 % (20.0-40.0); MEAN CELL VOLUME 80.5 fL (81.0-99.0); MEAN CORPUSCULAR HEMOGLOBIN 26.9 pg (27.0-31.0); MEAN CORPUSCULAR HGB CONC 33.5 g/dL (33.0-37.0); MEAN PLATELET VOLUME 7.9 fL (7.2-11.7); MONO # 0.7 K/uL (0.0-0.8); MONO % 8.6 % (0.0-10.0); RED CELL DISTRIBUTION WIDTH 15.1 % (11.5-14.5); WHITE BLOOD COUNT 8.1 K/uL (4.8-10.8)
--- NOTE | 2016-10-22 08:07 | CP.PCM.PN ---
Subjective - Date & Time of Evaluation Date of Evaluation: 10/22/16 Time of Evaluation: 08:04 - Subjective Subjective: SURGERY NOTE FOR DR. MAN 26F seen and examined at bedside. Patient states she is feeling well, denies further abdominal pain, nausea, vomiting. Objective - Vital Signs/Intake and Output Vital Signs (last 24 hours): Temp Pulse Resp BP Pulse Ox 99 F 112 H 20 100/67 97 10/21/16 23:30 10/21/16 23:30 10/21/16 23:30 10/21/16 23:30 10/21/16 23:30 Intake and Output: 10/22/16 10/22/16 06:59 18:59 Intake Total 200 Balance 200 - Medications Medications: Current Medications Famotidine (Pepcid) 20 mg IVP Q12H [facility] Last Admin: 10/21/16 19:28 Dose: 20 mg Metronidazole (Flagyl) 500 mg in 100 mls @ 100 mls/hr IVPB Q8H [facility] Last Admin: 10/22/16 02:48 Dose: 100 mls/hr Gentamicin Sulfate 80 mg/ (Sodium Chloride) 102 mls @ 100 mls/hr IVPB Q24H [facility] Stop: 10/25/16 20:01 Last Admin: 10/21/16 19:28 Dose: 100 mls/hr Vancomycin HCl 1,000 mg/ (Sodium Chloride) 250 mls @ 166.6 mls/hr IVPB Q12H [facility] Last Admin: 10/22/16 00:12 Dose: Not Given Morphine Sulfate (Morphine) 3 mg IV Q4 PRN PRN Reason: Pain, severe (8-10) Last Admin: 10/22/16 04:37 Dose: 3 mg Ondansetron HCl (Zofran Inj) 4 mg IVP Q4H PRN PRN Reason: Nausea/Vomiting Last Admin: 10/21/16 20:04 Dose: 4 mg Polyethylene Glycol (Miralax) 17 gm PO DAILY [facility] Last Admin: 10/20/16 10:54 Dose: Not Given - Labs Labs: 10/22/16 06:26 10/21/16 20:24 PT 13.3 SECONDS (9.7-12.2) H 10/21/16 20:24 INR 1.2 10/21/16 20:24 APTT 30 SECONDS (21-34) 10/21/16 20:24 - Constitutional Appears: Non-toxic, No Acute Distress - Head Exam Head Exam: ATRAUMATIC - Respiratory Exam Respiratory Exam: Clear to Ausculation Bilateral, NORMAL BREATHING PATTERN - Cardiovascular Exam Cardiovascular Exam: REGULAR RHYTHM, +S1, +S2 - GI/Abdominal Exam GI & Abdominal Exam: Soft. absent: Distended, Firm, Guarding, Rigid, Tenderness , Rebound - Neurological Exam Neurological Exam: Alert, Awake Assessment and Plan - Assessment and Plan (Free Text) Assessment: 26F w/ recurrent pancreatitis likely 2/2 gb sludge, w/ pseudocyst and walled off necrosis, s/p cystgastrostomy last week, s/p Necrosectomy POD1 Plan: - F/U CT pancreatic protocol - Continue IVF, Pain control PRN - Patient does not want surgery at this admission - Will continue to follow while pt is in house - Further recs per Dr. Wei Sunshine, PGY2
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
[2016-10-22] MEDS: POLYETHYLENE GLYCOL 3350 17 GM/Dose PACKET PO SCH (10:32)
--- NOTE | 2016-10-22 16:27 | CP.PCM.PN ---
Subjective - Date & Time of Evaluation Date of Evaluation: 10/22/16 Time of Evaluation: 16:27 - Subjective Subjective: CHIEF COMPLAINTS TODAY : afebrile c/o slight abdominal discomfort. HAD EMESIS LAST NIGHT COFFEE-GROUND On full liquids S/P ERCP /AND NECROSECTOMY 10/21/16 2HRS IN OR BY DR AL S/P EUS CYSTOGASTROSTOMY 10/18/16. S/P EUS 10/16/16-FINDINGS NOTED EXTENSIVE SLUDGE GALLBLADDER,LARGE PANCREATIC FLUID COLLECTION S/P DIAGNOSTIC FNA ( see full report ) ROS HEENT : N. 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 Musculoskel : N Ext. : Pedal pulses intact, no edema or calf pain Derm : N Psych : N. PE. Pt. is alert awake in no distress. V.S As noted in the chart Head ,ear nose,throat and eyes : Normal. Neck : Supple with normal carotids. Lungs: fair entry. Heart : S1 & S2 normal . . No murmur. S4 + Abd : Soft , postprocedure.TENDERNESS., BOWEL SOUNDS.HYPOACTIVE. Neuro : Moves all ext. with no localized deficit. Ext : No edema with intact pulses. Neg. calf tenderness Derm : No rashes or decubitus ulcer. Radiology/Labs . CYST FLUID-HIGH AMYLASE, LOW cea LEVELS vANCO TROUGH 10/21 < 5.0 LOW ( ON 1.5 G VANCOMYCIN. ) Repeat urine culture negative growth. BODY FLUID 10/16/16 POSITIVE FOR STREPTOCOCCUS PARASANGUINOUS S- VANCOMYCIN, CLEOCIN,CTR LFTS IMPROVING CREATININE 0.6 /bun 20. Objective - Vital Signs/Intake and Output Vital Signs (last 24 hours): Temp Pulse Resp BP Pulse Ox 98.1 F 99 H 20 101/69 97 10/22/16 07:00 10/22/16 07:00 10/22/16 07:00 10/22/16 07:00 10/22/16 07:00 Intake and Output: 10/22/16 10/22/16 06:59 18:59 Intake Total 200 700 Balance 200 700 - Medications Medications: Current Medications Famotidine (Pepcid) 20 mg IVP Q12H [facility] Last Admin: 10/22/16 08:07 Dose: 20 mg Metronidazole (Flagyl) 500 mg in 100 mls @ 100 mls/hr IVPB Q8H [facility] Last Admin: 10/22/16 10:29 Dose: 100 mls/hr Gentamicin Sulfate 80 mg/ (Sodium Chloride) 102 mls @ 100 mls/hr IVPB Q24H [facility] Stop: 10/25/16 20:01 Last Admin: 10/21/16 19:28 Dose: 100 mls/hr Vancomycin HCl 1,000 mg/ (Sodium Chloride) 250 mls @ 166.6 mls/hr IVPB Q12H [facility] Last Admin: 10/22/16 11:06 Dose: 166.6 mls/hr Morphine Sulfate (Morphine) 3 mg IV Q4 PRN PRN Reason: Pain, severe (8-10) Last Admin: 10/22/16 15:46 Dose: 3 mg Ondansetron HCl (Zofran Inj) 4 mg IVP Q4H PRN PRN Reason: Nausea/Vomiting Last Admin: 10/21/16 20:04 Dose: 4 mg Polyethylene Glycol (Miralax) 17 gm PO DAILY [facility] Last Admin: 10/22/16 10:32 Dose: Not Given - Labs Labs: 10/22/16 06:26 10/21/16 20:24 PT 13.3 SECONDS (9.7-12.2) H 10/21/16 20:24 INR 1.2 10/21/16 20:24 APTT 30 SECONDS (21-34) 10/21/16 20:24 Assessment and Plan (1) Acute pancreatitis Status: Acute (2) Vomiting Status: Acute (3) UTI (urinary tract infection) Status: Acute (4) Pneumonia Status: Acute - Assessment and Plan (Free Text) Plan: on iv VANCOMYCIN 1 GM EVERY 12 HOURLY DAILY.10/14, 10/21/16 F/U VANCO TROUGH LEVEL ON 10/23/16 4TH DOSE OF 1GM Q 12HRLY CONTINUE iv fLAGYL 500 EVERY 8 HOURLY. 10/12 ADD IV GENTAMICIN 100 MG LOADING DOSE 10/20 fOLLOWED BY 80 MG ONCE DAILY 4 DOSES FOR SYNERGY WITH STREPTOCOCCUS- PARASANGUINOUS. PER GI. ADVANCE DIET.
--- NOTE | 2016-10-22 23:42 | CP.PCM.PN ---
Subjective - Date & Time of Evaluation Date of Evaluation: 10/22/16 Time of Evaluation: 20:27 - Subjective Subjective: BLEEDING PER RECTUM FEELS BETTER, NO NAUSEA, NO SOB Objective - Vital Signs/Intake and Output Vital Signs (last 24 hours): Temp Pulse Resp BP Pulse Ox 98.6 F 98 H 20 93/58 L 97 10/22/16 15:03 10/22/16 15:03 10/22/16 15:03 10/22/16 15:03 10/22/16 15:03 Intake and Output: 10/22/16 10/23/16 18:59 06:59 Intake Total 700 670 Balance 700 670 - Medications Medications: Current Medications Famotidine (Pepcid) 20 mg IVP Q12H [facility] Last Admin: 10/22/16 20:01 Dose: 20 mg Metronidazole (Flagyl) 500 mg in 100 mls @ 100 mls/hr IVPB Q8H [facility] Last Admin: 10/22/16 18:10 Dose: 100 mls/hr Gentamicin Sulfate 80 mg/ (Sodium Chloride) 102 mls @ 100 mls/hr IVPB Q24H [facility] Stop: 10/25/16 20:01 Last Admin: 10/22/16 19:59 Dose: 100 mls/hr Vancomycin HCl 1,000 mg/ (Sodium Chloride) 250 mls @ 166.6 mls/hr IVPB Q12H [facility] Last Admin: 10/22/16 23:05 Dose: 166.6 mls/hr Morphine Sulfate (Morphine) 3 mg IV Q4 PRN PRN Reason: Pain, severe (8-10) Last Admin: 10/22/16 20:01 Dose: 3 mg Ondansetron HCl (Zofran Inj) 4 mg IVP Q4H PRN PRN Reason: Nausea/Vomiting Last Admin: 10/21/16 20:04 Dose: 4 mg Polyethylene Glycol (Miralax) 17 gm PO DAILY [facility] Last Admin: 10/22/16 10:32 Dose: Not Given - Labs Labs: 10/22/16 06:26 10/21/16 20:24 PT 13.3 SECONDS (9.7-12.2) H 10/21/16 20:24 INR 1.2 10/21/16 20:24 APTT 30 SECONDS (21-34) 10/21/16 20:24 - Constitutional Appears: Non-toxic, No Acute Distress - Head Exam Head Exam: ATRAUMATIC, NORMAL INSPECTION, NORMOCEPHALIC - Eye Exam Eye Exam: EOMI, Normal appearance Pupil Exam: NORMAL ACCOMODATION - ENT Exam ENT Exam: Mucous Membranes Moist, Normal Exam - Neck Exam Neck Exam: Normal Inspection - Respiratory Exam Respiratory Exam: Clear to Ausculation Bilateral, NORMAL BREATHING PATTERN - Cardiovascular Exam Cardiovascular Exam: REGULAR RHYTHM - GI/Abdominal Exam GI & Abdominal Exam: Soft, Normal Bowel Sounds - Rectal Exam Rectal Exam: NORMAL INSPECTION - Extremities Exam Extremities Exam: Full ROM, Normal Capillary Refill, Normal Inspection - Neurological Exam Neurological Exam: Alert, Awake, CN II-XII Intact, Normal Gait, Oriented x3 Neuro motor strength exam: Left Upper Extremity: 5, Right Upper Extremity: 5, Left Lower Extremity: 5, Right Lower Extremity: 5 - Psychiatric Exam Psychiatric exam: Normal Mood - Skin Skin Exam: Dry Assessment and Plan (1) Acute pancreatitis Assessment & Plan: S/P ENDOSCOPIC GASTROSTOMY Status: Acute (2) Cholelithiases Status: Chronic
[2016-10-23] MEDS: Morphine 4 MG/ML VIAL IV PRN ×5 (01:02→21:08)
[2016-10-23] MEDS: metroNIDAZOLE IV 500 mg/100 ml 500 MG/100 ML BAG IVPB SCH ×2 (03:02→11:23)
[2016-10-23 07:19] LABS: BASO # 0.1 K/uL (0.0-0.2); BASO % 1.2 % (0.0-2.0); EOS # 0.3 K/uL (0.0-0.7); EOS % 7.8 % (0.0-4.0); HEMATOCRIT 26.8 % (34.0-47.0); LYMPH # 1.4 K/uL (1.0-4.3); LYMPH % 31.3 % (20.0-40.0); MEAN CELL VOLUME 81.1 fL (81.0-99.0); MEAN CORPUSCULAR HEMOGLOBIN 27.5 pg (27.0-31.0); MEAN PLATELET VOLUME 8.5 fL (7.2-11.7); MONO # 0.6 K/uL (0.0-0.8); MONO % 13.2 % (0.0-10.0); RED CELL DISTRIBUTION WIDTH 15.5 % (11.5-14.5); WHITE BLOOD COUNT 4.4 K/uL (4.8-10.8)
[2016-10-23 07:38] LABS: CHLORIDE 102 mmol/L (98-107); POTASSIUM 3.3 mmol/L (3.6-5.2); SODIUM 137 mmol/L (132-148)
[2016-10-23 07:40] LABS: CARBON DIOXIDE 25 mmol/L (22-30); GFR AFRICAN-AMERICAN > 60
[2016-10-23 07:41] LABS: BLOOD UREA NITROGEN 5 mg/dL (7-17); CALCIUM 8.4 mg/dl (8.6-10.4); GLUCOSE,RANDOM 82 mg/dL (65-105)
[2016-10-23] MEDS ORDERED: Potassium Chloride 10 mEq ER Tab PO ONE (08:15)
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
--- NOTE | 2016-10-23 11:24 | CP.PCM.PN ---
Subjective - Date & Time of Evaluation Date of Evaluation: 10/23/16 Time of Evaluation: 06:45 - Subjective Subjective: General Surgery- Dr. Carvajal 26F seen and examined at bedside this AM. Patient states she is feeling well, denies further abdominal pain, nausea, vomiting. Objective - Vital Signs/Intake and Output Vital Signs (last 24 hours): Temp Pulse Resp BP Pulse Ox 97.0 F L 77 20 91/58 L 97 10/23/16 08:13 10/23/16 08:13 10/23/16 08:13 10/23/16 08:13 10/23/16 08:13 Intake and Output: 10/23/16 10/23/16 06:59 18:59 Intake Total 670 Balance 670 - Medications Medications: Current Medications Famotidine (Pepcid) 20 mg IVP Q12H [facility] Last Admin: 10/22/16 20:01 Dose: 20 mg Metronidazole (Flagyl) 500 mg in 100 mls @ 100 mls/hr IVPB Q8H [facility] Last Admin: 10/23/16 03:02 Dose: 100 mls/hr Gentamicin Sulfate 80 mg/ (Sodium Chloride) 102 mls @ 100 mls/hr IVPB Q24H [facility] Stop: 10/25/16 20:01 Last Admin: 10/22/16 19:59 Dose: 100 mls/hr Vancomycin HCl 1,000 mg/ (Sodium Chloride) 250 mls @ 166.6 mls/hr IVPB Q12H [facility] Last Admin: 10/22/16 23:05 Dose: 166.6 mls/hr Morphine Sulfate (Morphine) 3 mg IV Q4 PRN PRN Reason: Pain, severe (8-10) Last Admin: 10/23/16 05:49 Dose: 3 mg Ondansetron HCl (Zofran Inj) 4 mg IVP Q4H PRN PRN Reason: Nausea/Vomiting Last Admin: 10/21/16 20:04 Dose: 4 mg Polyethylene Glycol (Miralax) 17 gm PO DAILY [facility] Last Admin: 10/22/16 10:32 Dose: Not Given - Labs Labs: 10/23/16 06:53 10/23/16 06:53 PT 13.3 SECONDS (9.7-12.2) H 10/21/16 20:24 INR 1.2 10/21/16 20:24 APTT 30 SECONDS (21-34) 10/21/16 20:24 Assessment and Plan - Assessment and Plan (Free Text) Assessment: 26F w/ recurrent pancreatitis likely 2/2 gb sludge, w/ pseudocyst and walled off necrosis, s/p cystgastrostomy last week, s/p Necrosectomy POD2 Plan: - F/U CT pancreatic protocol - GI plans for plastic stent placement today - Continue IVF, Pain control PRN - Patient does not want surgery at this admission - Will continue to follow while pt is in house - Further recs per Dr. Wei Jones PGY1
[2016-10-23] MEDS ORDERED: Iohexol 240 (50 ml) ONE (12:11)
[2016-10-23] MEDS ORDERED: Indomethacin 50 MG Suppository PR ONE (12:11)
[2016-10-23] MEDS ORDERED: Propofol 10 mg/ml Inj (20 ML) ONE ×5 (12:16→14:17)
[2016-10-23] MEDS ORDERED: Midazolam 2 MG/2 ML VIAL ONE (12:16)
[2016-10-23] MEDS ORDERED: Lactated Ringer's 1,000 ML IV ONE (12:50)
--- NOTE | 2016-10-23 13:40 | CP.PCM.PN ---
Subjective - Date & Time of Evaluation Date of Evaluation: 10/23/16 Time of Evaluation: 13:40 - Subjective Subjective: CHIEF COMPLAINTS TODAY : seen postop 10/23 ERCP, s/p stent removal And placement of 2 [place]ian double-pigtail plastic stents for disconnected pancreatic duct syndrome. afebrile offers no new complaints. Tolerated procedure. S/P ERCP /AND NECROSECTOMY 10/21/16 2HRS IN OR BY DR AL S/P EUS CYSTOGASTROSTOMY 10/18/16. S/P EUS 10/16/16-FINDINGS NOTED EXTENSIVE SLUDGE GALLBLADDER,LARGE PANCREATIC FLUID COLLECTION S/P DIAGNOSTIC FNA ( see full report ) ROS HEENT : N. Resp : No SOB wheezing, cough Cardio : No CP, PND orthopnea GI : no abdominal pain,, NO n/v COSMETICS PRESSER : No headache , focal deficit. Musculoskel : N Ext. : Pedal pulses intact, no edema or calf pain Derm : N Psych : N. PE. Pt. is alert awake in no distress. V.S As noted in the chart Head ,ear nose,throat and eyes : Normal. Neck : Supple with normal carotids. Lungs: fair entry. Heart : S1 & S2 normal . . No murmur. S4 + Abd : Soft , postprocedure.TENDERNESS., BOWEL SOUNDS.HYPOACTIVE. Neuro : Moves all ext. with no localized deficit. Ext : No edema with intact pulses. Neg. calf tenderness Derm : No rashes or decubitus ulcer. Radiology/Labs . wbc 4.4 h/h 9.1/ 26.8 CYST FLUID-HIGH AMYLASE, LOW cea LEVELS vANCO TROUGH 10/21 < 5.0 LOW ( ON 1.5 G VANCOMYCIN. ) Repeat urine culture negative growth. BODY FLUID 10/16/16 POSITIVE FOR STREPTOCOCCUS PARASANGUINOUS S- VANCOMYCIN, CLEOCIN,CTR LFTS IMPROVING CREATININE 0.5 /bun 5 10/23/16 Objective - Vital Signs/Intake and Output Vital Signs (last 24 hours): Temp Pulse Resp BP Pulse Ox 97.0 F L 77 20 91/58 L 97 10/23/16 12:44 10/23/16 12:44 10/23/16 12:44 10/23/16 12:44 10/23/16 12:44 Intake and Output: 10/23/16 10/23/16 06:59 18:59 Intake Total 670 Balance 670 - Medications Medications: Current Medications Famotidine (Pepcid) 20 mg IVP Q12H [facility] Last Admin: 10/22/16 20:01 Dose: 20 mg Metronidazole (Flagyl) 500 mg in 100 mls @ 100 mls/hr IVPB Q8H [facility] Last Admin: 10/23/16 11:23 Dose: 100 mls/hr Gentamicin Sulfate 80 mg/ (Sodium Chloride) 102 mls @ 100 mls/hr IVPB Q24H [facility] Stop: 10/25/16 20:01 Last Admin: 10/22/16 19:59 Dose: 100 mls/hr Vancomycin HCl 1,000 mg/ (Sodium Chloride) 250 mls @ 166.6 mls/hr IVPB Q12H [facility] Last Admin: 10/22/16 23:05 Dose: 166.6 mls/hr Morphine Sulfate (Morphine) 3 mg IV Q4 PRN PRN Reason: Pain, severe (8-10) Last Admin: 10/23/16 11:22 Dose: 3 mg Ondansetron HCl (Zofran Inj) 4 mg IVP Q4H PRN PRN Reason: Nausea/Vomiting Last Admin: 10/21/16 20:04 Dose: 4 mg Polyethylene Glycol (Miralax) 17 gm PO DAILY [facility] Last Admin: 10/22/16 10:32 Dose: Not Given - Labs Labs: 10/23/16 06:53 10/23/16 06:53 PT 13.3 SECONDS (9.7-12.2) H 10/21/16 20:24 INR 1.2 10/21/16 20:24 APTT 30 SECONDS (21-34) 10/21/16 20:24 Assessment and Plan (1) Acute pancreatitis Status: Acute (2) Vomiting Status: Acute (3) UTI (urinary tract infection) Status: Acute (4) Pneumonia Status: Acute - Assessment and Plan (Free Text) Plan: on iv VANCOMYCIN 1 GM EVERY 12 HOURLY DAILY.10/14/16- day10 patient missed her dose of vancomycin at 12 noon as per RN. Patient to get Vanco 1 g at 6 PM and 6 AM. F/U VANCO TROUGH LEVEL ON 10/24/16 4TH DOSE at 5 pm. dc iv fLAGYL 500 EVERY 8 HOURLY. 10/12- 10/23/16 due to leukopenia. Will follow CBC closely. continue IV GENTAMICIN 100 MG LOADING DOSE 10/20 fOLLOWED BY 80 MG ONCE DAILY 4 DOSES FOR SYNERGY WITH STREPTOCOCCUS- PARASANGUINOUS. F/U RENAL FUNCTIONS CLOSELY. PER GI. ADVANCE DIET TOLERATED.
[2016-10-23] MEDS: POLYETHYLENE GLYCOL 3350 17 GM/Dose PACKET PO SCH (14:10)
[2016-10-24] MEDS: Morphine 4 MG/ML VIAL IV PRN ×4 (01:34→21:45)
--- NOTE | 2016-10-24 03:23 | CP.PCM.PN ---
Subjective - Date & Time of Evaluation Date of Evaluation: 10/23/16 Time of Evaluation: 20:32 - Subjective Subjective: FEELS BETTER, FOR EGD, NO FEVER, NO SOB Objective - Vital Signs/Intake and Output Vital Signs (last 24 hours): Temp Pulse Resp BP Pulse Ox 98.7 F 94 H 20 105/67 96 10/23/16 23:45 10/23/16 23:45 10/23/16 23:45 10/23/16 23:45 10/23/16 23:45 Intake and Output: 10/23/16 10/24/16 18:59 06:59 Intake Total 770 Balance 770 - Medications Medications: Current Medications Famotidine (Pepcid) 20 mg IVP Q12H [facility] Last Admin: 10/23/16 19:45 Dose: 20 mg Gentamicin Sulfate 80 mg/ (Sodium Chloride) 102 mls @ 100 mls/hr IVPB Q24H [facility] Stop: 10/25/16 20:01 Last Admin: 10/23/16 19:46 Dose: 100 mls/hr Vancomycin HCl 1 gm/ Sodium (Chloride) 250 mls @ 166.7 mls/hr IVPB Q12H [facility] Last Admin: 10/23/16 17:37 Dose: 166.7 mls/hr Morphine Sulfate (Morphine) 3 mg IV Q4 PRN PRN Reason: Pain, severe (8-10) Last Admin: 10/24/16 01:34 Dose: 3 mg Ondansetron HCl (Zofran Inj) 4 mg IVP Q4H PRN PRN Reason: Nausea/Vomiting Last Admin: 10/21/16 20:04 Dose: 4 mg Polyethylene Glycol (Miralax) 17 gm PO DAILY [facility] Last Admin: 10/23/16 14:10 Dose: Not Given - Labs Labs: 10/23/16 06:53 10/23/16 06:53 PT 13.3 SECONDS (9.7-12.2) H 10/21/16 20:24 INR 1.2 10/21/16 20:24 APTT 30 SECONDS (21-34) 10/21/16 20:24 - Constitutional Appears: Non-toxic, No Acute Distress - Eye Exam Eye Exam: EOMI, Normal appearance, PERRL Pupil Exam: NORMAL ACCOMODATION - ENT Exam ENT Exam: Mucous Membranes Moist, Normal Exam, Normal External Ear Exam, Normal Oropharynx - Neck Exam Neck Exam: Normal Inspection - Respiratory Exam Respiratory Exam: Clear to Ausculation Bilateral, NORMAL BREATHING PATTERN - Cardiovascular Exam Cardiovascular Exam: REGULAR RHYTHM, +S1, +S2 - GI/Abdominal Exam GI & Abdominal Exam: Soft, Normal Bowel Sounds - Rectal Exam Rectal Exam: NORMAL INSPECTION Assessment and Plan (1) Acute pancreatitis Assessment & Plan: S/P ENDOSCOPIC GASTROSTOMY Status: Acute (2) Cholelithiases Status: Chronic
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
[2016-10-24 07:38] LABS: BASO % 0.8 % (0.0-2.0); EOS # 0.3 K/uL (0.0-0.7); EOS % 6.6 % (0.0-4.0); HEMATOCRIT 27.4 % (34.0-47.0); LYMPH # 1.2 K/uL (1.0-4.3); MEAN CELL VOLUME 81.1 fL (81.0-99.0); MEAN CORPUSCULAR HGB CONC 33.3 g/dL (33.0-37.0); MEAN PLATELET VOLUME 8.5 fL (7.2-11.7); MONO # 0.6 K/uL (0.0-0.8); MONO % 12.8 % (0.0-10.0); NRBC % 0.1 % (0.0-2.0); RED CELL DISTRIBUTION WIDTH 15.7 % (11.5-14.5); WHITE BLOOD COUNT 4.7 K/uL (4.8-10.8)
[2016-10-24 08:30] LABS: BLOOD UREA NITROGEN 4 mg/dL (7-17); CALCIUM 8.4 mg/dl (8.6-10.4); CARBON DIOXIDE 26 mmol/L (22-30); CHLORIDE 99 mmol/L (98-107); GFR AFRICAN-AMERICAN > 60; GLUCOSE,RANDOM 84 mg/dL (65-105); POTASSIUM 3.4 mmol/L (3.6-5.2); SODIUM 139 mmol/L (132-148)
--- NOTE | 2016-10-24 09:05 | RAD ---
PROCEDURE: HISTORY: Fluoro images for esophagogastroduodenoscopy ; stent exchange COMPARISON: None TECHNIQUE: Total fluoroscopic time utilized during the procedure: 85.0 seconds. Total dose 9.3 mGy cm squared FINDINGS: Submitted images from the current procedure: 13 Please refer to the physician's notes performing the procedure. IMPRESSION: Less than 1 hour fluoroscopic time utilized during performance of the procedure
[2016-10-24] MEDS: POLYETHYLENE GLYCOL 3350 17 GM/Dose PACKET PO SCH (09:35)
[2016-10-24] MEDS: Potassium Chloride 20 mEq ER Tab PO SCH (11:14)
--- NOTE | 2016-10-24 12:42 | CP.PCM.PN ---
Subjective - Date & Time of Evaluation Date of Evaluation: 10/24/16 Time of Evaluation: 12:42 - Subjective Subjective: CHIEF COMPLAINTS TODAY : POD #1 s/p 8/9 ERCP, s/p stent removal And placement of 2 [place] double-pigtail plastic stents for disconnected pancreatic duct syndrome. afebrile feeling better. c/o abdominal pain at night ROS HEENT : N. Resp : No SOB wheezing, cough Cardio : No CP, PND orthopnea GI : no abdominal pain,, NO n/v [employer] CUTTER : No headache , focal deficit. Musculoskel : N Ext. : Pedal pulses intact, no edema or calf pain Derm : N Psych : N. PE. Pt. is alert awake in no distress. V.S As noted in the chart Head ,ear nose,throat and eyes : Normal. Neck : Supple with normal carotids. Lungs: fair entry. Heart : S1 & S2 normal . . No murmur. S4 + Abd : Soft , postprocedure.TENDERNESS., BOWEL SOUNDS +ve Neuro : Moves all ext. with no localized deficit. Ext : No edema with intact pulses. Neg. calf tenderness Derm : No rashes or decubitus ulcer. Radiology/Labs . wbc 4.4 --> 4.7 better creat 0.5/bun 4 vanc trough 10.3 0k CYST FLUID-HIGH AMYLASE, LOW cea LEVELS Repeat urine culture negative growth. BODY FLUID 10/16/16 POSITIVE FOR STREPTOCOCCUS PARASANGUINOUS S- VANCOMYCIN, CLEOCIN,CTR Objective - Vital Signs/Intake and Output Vital Signs (last 24 hours): Temp Pulse Resp BP Pulse Ox 98.2 F 77 18 98/60 L 95 10/24/16 07:15 10/24/16 07:15 10/24/16 07:15 10/24/16 07:15 10/24/16 07:15 Intake and Output: 10/24/16 10/24/16 06:59 18:59 Intake Total 770 250 Balance 770 250 - Medications Medications: Current Medications Famotidine (Pepcid) 20 mg IVP Q12H [facility] Last Admin: 10/24/16 07:52 Dose: 20 mg Gentamicin Sulfate 80 mg/ (Sodium Chloride) 102 mls @ 100 mls/hr IVPB Q24H [facility] Stop: 10/25/16 20:01 Last Admin: 10/23/16 19:46 Dose: 100 mls/hr Vancomycin HCl 1 gm/ Sodium (Chloride) 250 mls @ 166.7 mls/hr IVPB Q12H [facility] Last Admin: 10/24/16 05:46 Dose: 166.7 mls/hr Morphine Sulfate (Morphine) 3 mg IV Q4 PRN PRN Reason: Pain, severe (8-10) Last Admin: 10/24/16 05:45 Dose: 3 mg Ondansetron HCl (Zofran Inj) 4 mg IVP Q4H PRN PRN Reason: Nausea/Vomiting Last Admin: 10/21/16 20:04 Dose: 4 mg Polyethylene Glycol (Miralax) 17 gm PO DAILY [facility] Last Admin: 10/24/16 09:35 Dose: Not Given Potassium Chloride (K-Dur 20 Meq Er Tab) 20 meq PO DAILY [facility] Stop: 10/26/16 10:46 Last Admin: 10/24/16 11:14 Dose: 20 meq - Labs Labs: 10/24/16 07:26 10/24/16 07:26 PT 13.3 SECONDS (9.7-12.2) H 10/21/16 20:24 INR 1.2 10/21/16 20:24 APTT 30 SECONDS (21-34) 10/21/16 20:24 Assessment and Plan (1) Acute pancreatitis Status: Acute (2) Vomiting Status: Acute (3) UTI (urinary tract infection) Assessment & Plan: RESOLVED Status: Acute (4) Pneumonia Assessment & Plan: RESOLVED Status: Acute - Assessment and Plan (Free Text) Plan: PLAN; on iv VANCOMYCIN 1 GM EVERY 12 HOURLY DAILY.10/14/16- day11 X 3DAYS MORE CONTINUE IV GENTAMICIN 100 MG LOADING DOSE 10/21 fOLLOWED BY 80 MG ONCE DAILY 4 DOSES FOR SYNERGY WITH STREPTOCOCCUS- PARASANGUINOUS. ( LAST DOSE 10/25/16) F/U RENAL FUNCTIONS CLOSELY. PER GI. ADVANCE DIET TOLERATED. CASE DISCUSSED WITH GI DR RATLIFF PGY-4. PATIENT TO COMPLETE HER ANTIBIOTICS AND CAN BE DISCHARGED ON 10/27/16 PO CLEOCIN 300MG PO TID X 7DAYS PO BACID 1TAB PO HS X 7DAYS. PATIENT EXPLAINED AND UNDERSTANDS. PATIENT ANXIOUS TO SEE DIETITIAN TO AVOID FOODS CAUSING PANCREATITIS. WILL REQUEST DIETITIAN TO SEE THE PATIENT.
--- NOTE | 2016-10-24 14:20 | CP.PCM.PN ---
Subjective - Date & Time of Evaluation Date of Evaluation: 10/24/16 Time of Evaluation: 02:15 - Subjective Subjective: General Surgery Note Patient was seen and examined at bedside in no acute distress. Patient states that she is doing well. Patient denies nausea, vomiting, abdominal pain, fever, chills. Patient reports that she is tolerating diet, having normal bowel movement and ambulating. Objective - Vital Signs/Intake and Output Vital Signs (last 24 hours): Temp Pulse Resp BP Pulse Ox 98.2 F 77 18 98/60 L 95 10/24/16 07:15 10/24/16 07:15 10/24/16 07:15 10/24/16 07:15 10/24/16 07:15 Intake and Output: 10/24/16 10/24/16 06:59 18:59 Intake Total 770 250 Balance 770 250 - Medications Medications: Current Medications Famotidine (Pepcid) 20 mg IVP Q12H [facility] Last Admin: 10/24/16 07:52 Dose: 20 mg Gentamicin Sulfate 80 mg/ (Sodium Chloride) 102 mls @ 100 mls/hr IVPB Q24H [facility] Stop: 10/25/16 20:01 Last Admin: 10/23/16 19:46 Dose: 100 mls/hr Vancomycin HCl 1 gm/ Sodium (Chloride) 250 mls @ 166.7 mls/hr IVPB Q12H [facility] Last Admin: 10/24/16 05:46 Dose: 166.7 mls/hr Morphine Sulfate (Morphine) 3 mg IV Q4 PRN PRN Reason: Pain, severe (8-10) Last Admin: 10/24/16 05:45 Dose: 3 mg Ondansetron HCl (Zofran Inj) 4 mg IVP Q4H PRN PRN Reason: Nausea/Vomiting Last Admin: 10/21/16 20:04 Dose: 4 mg Polyethylene Glycol (Miralax) 17 gm PO DAILY [facility] Last Admin: 10/24/16 09:35 Dose: Not Given Potassium Chloride (K-Dur 20 Meq Er Tab) 20 meq PO DAILY [facility] Stop: 10/26/16 10:46 Last Admin: 10/24/16 11:14 Dose: 20 meq - Labs Labs: 10/24/16 07:26 10/24/16 07:26 PT 13.3 SECONDS (9.7-12.2) H 10/21/16 20:24 INR 1.2 10/21/16 20:24 APTT 30 SECONDS (21-34) 10/21/16 20:24 - Constitutional Appears: Well, No Acute Distress - Head Exam Head Exam: ATRAUMATIC, NORMAL INSPECTION - Eye Exam Eye Exam: EOMI, Normal appearance - ENT Exam ENT Exam: Mucous Membranes Moist, Normal Exam - Respiratory Exam Respiratory Exam: Clear to Ausculation Bilateral, NORMAL BREATHING PATTERN - Cardiovascular Exam Cardiovascular Exam: REGULAR RHYTHM, +S1, +S2 - GI/Abdominal Exam GI & Abdominal Exam: Soft, Normal Bowel Sounds - Extremities Exam Extremities Exam: Full ROM, Normal Inspection. 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 Wei Cole, PGY -1
--- NOTE | 2016-10-25 02:04 | CP.PCM.PN ---
Subjective - Date & Time of Evaluation Date of Evaluation: 10/24/16 Time of Evaluation: 20:35 - Subjective Subjective: FOR ERCP, NO FEVER, NO SOB, LESS NAUSEA Objective - Vital Signs/Intake and Output Vital Signs (last 24 hours): Temp Pulse Resp BP Pulse Ox 98.4 F 90 20 102/66 100 10/24/16 16:00 10/24/16 16:00 10/24/16 16:00 10/24/16 16:00 10/24/16 16:00 Intake and Output: 10/24/16 10/25/16 18:59 06:59 Intake Total 850 670 Balance 850 670 - Medications Medications: Current Medications Famotidine (Pepcid) 20 mg IVP Q12H [facility] Last Admin: 10/24/16 19:46 Dose: 20 mg Gentamicin Sulfate 80 mg/ (Sodium Chloride) 102 mls @ 100 mls/hr IVPB Q24H [facility] Stop: 10/25/16 20:01 Last Admin: 10/24/16 19:46 Dose: 100 mls/hr Vancomycin HCl 1 gm/ Sodium (Chloride) 250 mls @ 166.7 mls/hr IVPB Q12H [facility] Last Admin: 10/24/16 18:00 Dose: 166.7 mls/hr Morphine Sulfate (Morphine) 3 mg IV Q4 PRN PRN Reason: Pain, severe (8-10) Last Admin: 10/24/16 21:45 Dose: 3 mg Ondansetron HCl (Zofran Inj) 4 mg IVP Q4H PRN PRN Reason: Nausea/Vomiting Last Admin: 10/21/16 20:04 Dose: 4 mg Polyethylene Glycol (Miralax) 17 gm PO DAILY [facility] Last Admin: 10/24/16 09:35 Dose: Not Given Potassium Chloride (K-Dur 20 Meq Er Tab) 20 meq PO DAILY [facility] Stop: 10/26/16 10:46 Last Admin: 10/24/16 11:14 Dose: 20 meq - Labs Labs: 10/24/16 07:26 10/24/16 07:26 PT 13.3 SECONDS (9.7-12.2) H 10/21/16 20:24 INR 1.2 10/21/16 20:24 APTT 30 SECONDS (21-34) 10/21/16 20:24 - Constitutional Appears: Non-toxic, No Acute Distress, Chronically Ill - Head Exam Head Exam: ATRAUMATIC, NORMAL INSPECTION, NORMOCEPHALIC - Eye Exam Eye Exam: EOMI, Normal appearance, PERRL Pupil Exam: NORMAL ACCOMODATION - ENT Exam ENT Exam: Mucous Membranes Moist, Normal Exam, Normal Oropharynx, TM's Normal Bilaterally - Neck Exam Neck Exam: Normal Inspection - Respiratory Exam Respiratory Exam: NORMAL BREATHING PATTERN - Cardiovascular Exam Cardiovascular Exam: REGULAR RHYTHM, +S1, +S2 - GI/Abdominal Exam GI & Abdominal Exam: Soft, Normal Bowel Sounds Assessment and Plan (1) Acute pancreatitis Status: Acute (2) Cholelithiases Status: Chronic
[2016-10-25] MEDS: Morphine 4 MG/ML VIAL IV PRN ×2 (04:45→17:46)
[2016-10-25 07:26] LABS: BASO # 0.1 K/uL (0.0-0.2); BASO % 1.1 % (0.0-2.0); EOS # 0.3 K/uL (0.0-0.7); EOS % 6.2 % (0.0-4.0); HEMATOCRIT 30.4 % (34.0-47.0); LYMPH # 1.5 K/uL (1.0-4.3); LYMPH % 28.3 % (20.0-40.0); MEAN CELL VOLUME 81.2 fL (81.0-99.0); MEAN CORPUSCULAR HEMOGLOBIN 26.8 pg (27.0-31.0); MEAN PLATELET VOLUME 8.3 fL (7.2-11.7); MONO # 0.6 K/uL (0.0-0.8); MONO % 11.4 % (0.0-10.0); NRBC % 0.1 % (0.0-2.0); RED CELL DISTRIBUTION WIDTH 16.2 % (11.5-14.5); WHITE BLOOD COUNT 5.2 K/uL (4.8-10.8)
[2016-10-25 07:34] LABS: CHLORIDE 100 mmol/L (98-107); SODIUM 138 mmol/L (132-148)
[2016-10-25 07:35] LABS: POTASSIUM 3.7 mmol/L (3.6-5.2)
[2016-10-25 07:37] LABS: CARBON DIOXIDE 27 mmol/L (22-30); GFR AFRICAN-AMERICAN > 60
[2016-10-25 07:38] LABS: BLOOD UREA NITROGEN 4 mg/dL (7-17); CALCIUM 8.6 mg/dl (8.6-10.4); GLUCOSE,RANDOM 93 mg/dL (65-105)
[2016-10-25] MEDS: Potassium Chloride 20 mEq ER Tab PO SCH (09:35)
[2016-10-25] MEDS: POLYETHYLENE GLYCOL 3350 17 GM/Dose PACKET PO SCH ×2 (09:36)
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
--- NOTE | 2016-10-25 23:44 | CP.PCM.PN ---
Subjective - Date & Time of Evaluation Date of Evaluation: 10/25/16 Time of Evaluation: 23:43 - Subjective Subjective: CHIEF COMPLAINTS TODAY : POD # 2 s/p 8/9 ERCP, s/p stent removal And placement of 2 Spanish double-pigtail plastic stents for disconnected pancreatic duct syndrome. afebrile, states she feels weak but anxious to return to work C/O DARK COLOR STOOLS -probable old blood PAIN ABDOMEN TOLERABLE, ROS HEENT : N. 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 Musculoskel : N Ext. : Pedal pulses intact, no edema or calf pain Derm : N Psych : N. PE. Pt. is alert awake in no distress. V.S As noted in the chart Head ,ear nose,throat and eyes : Normal. Neck : Supple with normal carotids. Lungs: fair entry. Heart : S1 & S2 normal . . No murmur. S4 + Abd : Soft , postprocedure.TENDERNESS., BOWEL SOUNDS +ve Neuro : Moves all ext. with no localized deficit. Ext : No edema with intact pulses. Neg. calf tenderness Derm : No rashes or decubitus ulcer. Radiology/Labs . wbc 4.4 --> 4.7 better creat 0.5/bun 4 vanc trough 10.3 0k CYST FLUID-HIGH AMYLASE, LOW cea LEVELS Repeat urine culture negative growth. BODY FLUID 10/16/16 POSITIVE FOR STREPTOCOCCUS PARASANGUINOUS S- VANCOMYCIN, CLEOCIN,CTR Objective - Vital Signs/Intake and Output Vital Signs (last 24 hours): Temp Pulse Resp BP Pulse Ox 98.2 F 95 H 20 94/60 L 95 10/25/16 15:03 10/25/16 15:03 10/25/16 15:03 10/25/16 15:03 10/25/16 15:03 Intake and Output: 10/25/16 10/26/16 18:59 06:59 Intake Total 220 Balance 220 - Medications Medications: Current Medications Famotidine (Pepcid) 20 mg IVP Q12H [facility] Last Admin: 10/25/16 19:06 Dose: 20 mg Vancomycin HCl 1 gm/ Sodium (Chloride) 250 mls @ 166.7 mls/hr IVPB Q12H [facility] Last Admin: 10/25/16 17:46 Dose: 166.7 mls/hr Morphine Sulfate (Morphine) 3 mg IV Q4 PRN PRN Reason: Pain, severe (8-10) Last Admin: 10/25/16 17:46 Dose: 3 mg Ondansetron HCl (Zofran Inj) 4 mg IVP Q4H PRN PRN Reason: Nausea/Vomiting Last Admin: 10/21/16 20:04 Dose: 4 mg Polyethylene Glycol (Miralax) 17 gm PO DAILY [facility] Last Admin: 10/25/16 09:36 Dose: Not Given Potassium Chloride (K-Dur 20 Meq Er Tab) 20 meq PO DAILY [facility] Stop: 10/26/16 10:46 Last Admin: 10/25/16 09:35 Dose: 20 meq - Labs Labs: 10/25/16 07:08 10/25/16 07:08 PT 13.3 SECONDS (9.7-12.2) H 10/21/16 20:24 INR 1.2 10/21/16 20:24 APTT 30 SECONDS (21-34) 10/21/16 20:24 Assessment and Plan (1) Acute pancreatitis Status: Acute (2) Vomiting Status: Acute (3) UTI (urinary tract infection) Status: Acute (4) Pneumonia Status: Acute - Assessment and Plan (Free Text) Plan: PLAN; on iv VANCOMYCIN 1 GM EVERY 12 HOURLY DAILY.10/14/16- day12 X 2 DAYS MORE CONTINUE IV GENTAMICIN 100 MG LOADING DOSE 10/21 fOLLOWED BY 80 MG ONCE DAILY 4 DOSES FOR SYNERGY WITH STREPTOCOCCUS- PARASANGUINOUS. ( LAST DOSE 10/25/16) F/U RENAL FUNCTIONS CLOSELY. PER GI. ADVANCE DIET TOLERATED. PATIENT TO COMPLETE HER ANTIBIOTICS AND CAN BE DISCHARGED ON 10/27/16 on PO CLEOCIN 300MG PO TID X 7DAYS PO BACID 1TAB PO HS X 7DAYS. analgesics when necessary as per GI.
--- NOTE | 2016-10-26 01:41 | CP.PCM.PN ---
Subjective - Date & Time of Evaluation Date of Evaluation: 10/25/16 Time of Evaluation: 11:01 - Subjective Subjective: FEELS BETTER, TOLERTING DIET, NO FEVER, NO CHEST PAIN Objective - Vital Signs/Intake and Output Vital Signs (last 24 hours): Temp Pulse Resp BP Pulse Ox 98.2 F 95 H 20 94/60 L 95 10/25/16 15:03 10/25/16 15:03 10/25/16 15:03 10/25/16 15:03 10/25/16 15:03 Intake and Output: 10/25/16 10/26/16 18:59 06:59 Intake Total 220 Balance 220 - Medications Medications: Current Medications Famotidine (Pepcid) 20 mg IVP Q12H [facility] Last Admin: 10/25/16 19:06 Dose: 20 mg Vancomycin HCl 1 gm/ Sodium (Chloride) 250 mls @ 166.7 mls/hr IVPB Q12H [facility] Last Admin: 10/25/16 17:46 Dose: 166.7 mls/hr Morphine Sulfate (Morphine) 3 mg IV Q4 PRN PRN Reason: Pain, severe (8-10) Last Admin: 10/25/16 17:46 Dose: 3 mg Ondansetron HCl (Zofran Inj) 4 mg IVP Q4H PRN PRN Reason: Nausea/Vomiting Last Admin: 10/21/16 20:04 Dose: 4 mg Polyethylene Glycol (Miralax) 17 gm PO DAILY [facility] Last Admin: 10/25/16 09:36 Dose: Not Given Potassium Chloride (K-Dur 20 Meq Er Tab) 20 meq PO DAILY [facility] Stop: 10/26/16 10:46 Last Admin: 10/25/16 09:35 Dose: 20 meq - Labs Labs: 10/25/16 07:08 10/25/16 07:08 PT 13.3 SECONDS (9.7-12.2) H 10/21/16 20:24 INR 1.2 10/21/16 20:24 APTT 30 SECONDS (21-34) 10/21/16 20:24 - Constitutional Appears: Non-toxic, No Acute Distress - Head Exam Head Exam: ATRAUMATIC, NORMAL INSPECTION, NORMOCEPHALIC - Eye Exam Eye Exam: EOMI, Normal appearance, PERRL Pupil Exam: NORMAL ACCOMODATION - ENT Exam ENT Exam: Mucous Membranes Moist, Normal Exam, Normal Oropharynx, TM's Normal Bilaterally - Neck Exam Neck Exam: Normal Inspection - Respiratory Exam Respiratory Exam: Clear to Ausculation Bilateral, NORMAL BREATHING PATTERN - Cardiovascular Exam Cardiovascular Exam: REGULAR RHYTHM, +S1, +S2 - GI/Abdominal Exam GI & Abdominal Exam: Soft, Normal Bowel Sounds - Rectal Exam Rectal Exam: NORMAL INSPECTION Assessment and Plan (1) Acute pancreatitis Status: Acute (2) Cholelithiases Status: Chronic
[2016-10-26] MEDS: Morphine 4 MG/ML VIAL IV PRN ×3 (04:45→21:11)
[2016-10-26] MEDS: Potassium Chloride 20 mEq ER Tab PO SCH (09:23)
[2016-10-26] MEDS: POLYETHYLENE GLYCOL 3350 17 GM/Dose PACKET PO SCH (10:00)
--- NOTE | 2016-10-26 20:45 | CP.PCM.PN ---
Subjective - Date & Time of Evaluation Date of Evaluation: 10/26/16 Time of Evaluation: 20:45 - Subjective Subjective: CHIEF COMPLAINTS TODAY : POD # 3 s/p 8/9 ERCP, s/p stent removal And placement of 2 Lithuanian double-pigtail plastic stents for disconnected pancreatic duct syndrome. afebrile, FEELS STRONGER EACH DAY ROS HEENT : N. 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 Musculoskel : N Ext. : Pedal pulses intact, no edema or calf pain Derm : N Psych : N. PE. Pt. is alert awake in no distress. V.S As noted in the chart Head ,ear nose,throat and eyes : Normal. Neck : Supple with normal carotids. Lungs: fair entry. Heart : S1 & S2 normal . . No murmur. S4 + Abd : Soft , postprocedure.TENDERNESS., BOWEL SOUNDS +ve Neuro : Moves all ext. with no localized deficit. Ext : No edema with intact pulses. Neg. calf tenderness Derm : No rashes or decubitus ulcer. Radiology/Labs . LEUKOPENIA IMPROVING creat 0.5/bun 4 vanc trough 10.3 0k CYST FLUID-HIGH AMYLASE, LOW cea LEVELS Repeat urine culture negative growth. BODY FLUID 10/16/16 POSITIVE FOR STREPTOCOCCUS PARASANGUINOUS S- VANCOMYCIN, Objective - Vital Signs/Intake and Output Vital Signs (last 24 hours): Temp Pulse Resp BP Pulse Ox 98.3 F 100 H 20 93/59 L 96 10/26/16 16:23 10/26/16 16:23 10/26/16 16:23 10/26/16 16:23 10/26/16 16:23 - Medications Medications: Current Medications Famotidine (Pepcid) 20 mg IVP Q12H [facility] Last Admin: 10/26/16 20:33 Dose: 20 mg Vancomycin HCl 1 gm/ Sodium (Chloride) 250 mls @ 166.7 mls/hr IVPB Q12H [facility] Last Admin: 10/26/16 17:32 Dose: 166.7 mls/hr Morphine Sulfate (Morphine) 3 mg IV Q4 PRN PRN Reason: Pain, severe (8-10) Last Admin: 10/26/16 09:22 Dose: 3 mg Ondansetron HCl (Zofran Inj) 4 mg IVP Q4H PRN PRN Reason: Nausea/Vomiting Last Admin: 10/21/16 20:04 Dose: 4 mg Polyethylene Glycol (Miralax) 17 gm PO DAILY [facility] Last Admin: 10/25/16 09:36 Dose: Not Given - Labs Labs: 10/25/16 07:08 10/25/16 07:08 PT 13.3 SECONDS (9.7-12.2) H 10/21/16 20:24 INR 1.2 10/21/16 20:24 APTT 30 SECONDS (21-34) 10/21/16 20:24 Assessment and Plan (1) Acute pancreatitis Status: Acute (2) Vomiting Status: Acute (3) UTI (urinary tract infection) Status: Acute (4) Pneumonia Status: Acute - Assessment and Plan (Free Text) Plan: PATIENT TO COMPLETE HER ANTIBIOTICS AND CAN BE DISCHARGED ON 10/27/16 on PO CLEOCIN 300MG PO TID X 7DAYS PO BACID 1TAB PO HS X 7DAYS. analgesics when necessary as per GI. PT TO F/U W GI,, ID ,AND PMD.
--- NOTE | 2016-10-26 23:52 | CP.PCM.PN ---
Subjective - Date & Time of Evaluation Date of Evaluation: 10/26/16 Time of Evaluation: 11:13 - Subjective Subjective: LESS PAIN, NO NAUSEA, NO FEVER Objective - Vital Signs/Intake and Output Vital Signs (last 24 hours): Temp Pulse Resp BP Pulse Ox 98.3 F 100 H 20 93/59 L 96 10/26/16 16:23 10/26/16 16:23 10/26/16 16:23 10/26/16 16:23 10/26/16 16:23 - Medications Medications: Current Medications Famotidine (Pepcid) 20 mg IVP Q12H [facility] Last Admin: 10/26/16 20:33 Dose: 20 mg Vancomycin HCl 1 gm/ Sodium (Chloride) 250 mls @ 166.7 mls/hr IVPB Q12H [facility] Last Admin: 10/26/16 17:32 Dose: 166.7 mls/hr Morphine Sulfate (Morphine) 3 mg IV Q4 PRN PRN Reason: Pain, severe (8-10) Last Admin: 10/26/16 21:11 Dose: 3 mg Ondansetron HCl (Zofran Inj) 4 mg IVP Q4H PRN PRN Reason: Nausea/Vomiting Last Admin: 10/21/16 20:04 Dose: 4 mg Polyethylene Glycol (Miralax) 17 gm PO DAILY [facility] Last Admin: 10/25/16 09:36 Dose: Not Given - Labs Labs: 10/25/16 07:08 10/25/16 07:08 PT 13.3 SECONDS (9.7-12.2) H 10/21/16 20:24 INR 1.2 10/21/16 20:24 APTT 30 SECONDS (21-34) 10/21/16 20:24 - Constitutional Appears: Non-toxic - Head Exam Head Exam: ATRAUMATIC, NORMAL INSPECTION, NORMOCEPHALIC - Eye Exam Eye Exam: EOMI, Normal appearance, PERRL Pupil Exam: NORMAL ACCOMODATION - ENT Exam ENT Exam: Mucous Membranes Moist, Normal Exam, Normal Oropharynx, TM's Normal Bilaterally - Neck Exam Neck Exam: Normal Inspection - Respiratory Exam Respiratory Exam: Clear to Ausculation Bilateral, NORMAL BREATHING PATTERN - Cardiovascular Exam Cardiovascular Exam: REGULAR RHYTHM, +S1, +S2 - GI/Abdominal Exam GI & Abdominal Exam: Soft, Normal Bowel Sounds - Rectal Exam Rectal Exam: NORMAL INSPECTION Assessment and Plan (1) Acute pancreatitis Status: Acute (2) Cholelithiases Status: Chronic
[2016-10-27 00:25] VITALS: TEMP 98.2
[2016-10-27] MEDS ORDERED: Tramadol 25 mg PO ONE ×2 (07:02→15:45)
[2016-10-27 08:29] VITALS: BP 94/62; PULSE 85; RESP 17; O2SAT 100
[2016-10-27] MEDS: POLYETHYLENE GLYCOL 3350 17 GM/Dose PACKET PO SCH (15:28)
--- NOTE | 2016-10-27 22:25 | CP.PCM.DIS ---
Provider - Provider Date of Admission: 10/12/16 02:59 Attending physician: Pete Gomes MD Time Spent in preparation of Discharge (in minutes): 30 Diagnosis - Discharge Diagnosis (1) Acute pancreatitis Status: Acute (2) Cholelithiases Status: Chronic Hospital Course - Lab Results Lab Results: Micro Results 10/16/16 Unknown Other: Please Indicate Gram Stain - Final 10/16/16 Unknown Other: Please Indicate Body Fluid Culture - Final Streptococcus Parasanguinis 10/17/16 13:48 Urine,Clean Catch Urine Culture - Final No Growth (<1,000 CFU/ML) 10/12/16 19:58 Blood-Venous Blood Culture - Final NO GROWTH AFTER 5 DAYS 10/12/16 19:58 Blood-Venous Gram Stain - Final 10/12/16 18:00 Blood-Venous Blood Culture - Final NO GROWTH AFTER 5 DAYS 10/12/16 18:00 Blood-Venous Gram Stain - Final TEST NOT PERFORMED 10/12/16 19:05 Urine Urine Culture - Final Methicillin Resistant S Aureus Most Recent Lab Values WBC 5.2 K/uL (4.8-10.8) 10/25/16 07:08 RBC 3.74 Mil/uL (3.80-5.20) L 10/25/16 07:08 Hgb 10.0 g/dL (11.0-16.0) L 10/25/16 07:08 Hct 30.4 % (34.0-47.0) L 10/25/16 07:08 MCV 81.2 fL (81.0-99.0) 10/25/16 07:08 MCH 26.8 pg (27.0-31.0) L 10/25/16 07:08 MCHC 33.0 g/dL (33.0-37.0) 10/25/16 07:08 RDW 16.2 % (11.5-14.5) H 10/25/16 07:08 Plt Count 328 K/uL (130-400) 10/25/16 07:08 MPV 8.3 fL (7.2-11.7) 10/25/16 07:08 Neut % (Auto) 53.0 % (50.0-75.0) 10/25/16 07:08 Lymph % (Auto) 28.3 % (20.0-40.0) 10/25/16 07:08 Leake % (Auto) 11.4 % (0.0-10.0) H 10/25/16 07:08 Eos % (Auto) 6.2 % (0.0-4.0) H 10/25/16 07:08 Baso % (Auto) 1.1 % (0.0-2.0) 10/25/16 07:08 Neut # 2.8 K/uL (1.8-7.0) 10/25/16 07:08 Lymph # 1.5 K/uL (1.0-4.3) 10/25/16 07:08 Leake # 0.6 K/uL (0.0-0.8) 10/25/16 07:08 Eos # 0.3 K/uL (0.0-0.7) 10/25/16 07:08 Baso # 0.1 K/uL (0.0-0.2) 10/25/16 07:08 Neutrophils % (Manual) 91 % (50-75) H 10/11/16 23:34 Band Neutrophils % 1 % (0-2) 10/11/16 23:34 Lymphocytes % (Manual) 4 % (20-40) L 10/11/16 23:34 Monocytes % (Manual) 3 % (0-10) 10/11/16 23:34 Metamyelocytes % 1 % (0-0) H 10/11/16 23:34 Platelet Estimate Increased (NORMAL) H 10/11/16 23:34 Microcytosis (manual) Slight 10/11/16 23:34 ESR 30 mm/hr (0-20) H 10/13/16 08:04 PT 13.3 SECONDS (9.7-12.2) H 10/21/16 20:24 INR 1.2 10/21/16 20:24 APTT 30 SECONDS (21-34) 10/21/16 20:24 Sodium 138 mmol/L (132-148) 10/25/16 07:08 Potassium 3.7 mmol/L (3.6-5.2) 10/25/16 07:08 Chloride 100 mmol/L (98-107) 10/25/16 07:08 Carbon Dioxide 27 mmol/L (22-30) 10/25/16 07:08 Anion Gap 15 (10-20) 10/25/16 07:08 BUN 4 mg/dL (7-17) L 10/25/16 07:08 Creatinine 0.5 MG/DL (0.7-1.2) L 10/25/16 07:08 Est GFR ( Amer) > 60 10/25/16 07:08 Est GFR (Non-Af Amer) > 60 10/25/16 07:08 Random Glucose 93 mg/dL (65-105) 10/25/16 07:08 Lactic Acid 0.8 mmol/L (0.7-2.1) 10/12/16 19:58 Calcium 8.6 mg/dl (8.6-10.4) 10/25/16 07:08 Total Bilirubin 0.7 mg/dL (0.2-1.3) 10/21/16 20:24 Direct Bilirubin 1.7 mg/dL (0.0-0.4) H 10/18/16 07:51 AST 31 U/L (14-36) 10/21/16 20:24 ALT 67 U/L (9-52) H 10/21/16 20:24 Alkaline Phosphatase 69 U/L (38-126) 10/21/16 20:24 Lactate Dehydrogenase 425 U/L (313-618) 10/15/16 06:22 Total Creatine Kinase 33 U/L (30-135) 10/15/16 06:22 C-React Prot High Sens > 15.00 mg/L (1.00-3.00) H 10/13/16 09:36 Total Protein 6.0 g/dL (6.3-8.3) L 10/21/16 20:24 Albumin 3.3 g/dL (3.5-5.0) L 10/21/16 20:24 Globulin 2.8 gm/dL (2.2-3.9) 10/21/16 20:24 Albumin/Globulin Ratio 1.2 (1.0-2.1) 10/21/16 20:24 Triglycerides 88 mg/dL (0-149) D 10/12/16 07:09 Cholesterol 114 mg/dL (0-199) 10/12/16 07:09 LDL Cholesterol Direct 56 mg/dL (0-129) 10/12/16 07:09 HDL Cholesterol 32 mg/dL (30-70) 10/12/16 07:09 Lipase 3656 U/L (23-300) H 10/15/16 06:22 Procalcitonin < 0.05 NG/ML (0.19-0.49) L 10/13/16 08:04 Urine Color Yellow (YELLOW) 10/17/16 13:48 Urine Clarity Clear (Clear) 10/17/16 13:48 Urine pH 7.0 (5.0-8.0) 10/17/16 13:48 Ur Specific [place] 1.008 (1.003-1.030) 10/17/16 13:48 Urine Protein Negative mg/dL (NEGATIVE) 10/17/16 13:48 Urine Glucose (UA) Normal mg/dL (Normal) 10/17/16 13:48 Urine Ketones 1+ mg/dL (NEGATIVE) H 10/17/16 13:48 Urine Blood 1+ (NEGATIVE) H 10/17/16 13:48 Urine Nitrate Negative (NEGATIVE) 10/17/16 13:48 Urine Bilirubin Negative (NEGATIVE) 10/17/16 13:48 Urine Urobilinogen Normal mg/dL (0.2-1.0) 10/17/16 13:48 Ur Leukocyte Esterase Trace Mina/uL (Negative) 10/17/16 13:48 Urine WBC (Auto) 6 /hpf (0-5) H 10/17/16 13:48 Urine RBC (Auto) 3 /hpf (0-3) 10/17/16 13:48 Ur Squamous Epith Cells 6 /hpf (0-5) H 10/17/16 13:48 Ur Transition Epith Cell < 1 /hpf (0-3) 10/11/16 22:16 Urine Bacteria Rare (<OCC) 10/17/16 13:48 Urine HCG, Qual Negative (NEGATIVE) 10/23/16 11:52 IgG, Serum (MS) 55.6 mg/dL (4-86) 10/13/16 09:36 Peritoneal Amylase 13253 U/L 10/16/16 15:34 Pancreatic Cyst Fl CEA 197 ng/mL 10/16/16 15:28 Vancomycin Trough 10.3 ug/mL (5.0-10.0) H 10/24/16 16:44 Urine Opiates Screen Negative (NEGATIVE) 10/11/16 23:34 Urine Methadone Screen Negative (NEGATIVE) 10/11/16 23:34 Ur Barbiturates Screen Negative (NEGATIVE) 10/11/16 23:34 Ur Phencyclidine Scrn Negative (NEGATIVE) 10/11/16 23:34 Ur Amphetamines Screen Negative (NEGATIVE) 10/11/16 23:34 U Benzodiazepines Scrn Negative (NEGATIVE) 10/11/16 23:34 U Oth Cocaine Metabols Negative (NEGATIVE) 10/11/16 23:34 U Cannabinoids Screen Negative (NEGATIVE) 10/11/16 23:34 Alcohol, Quantitative < 10 mg/dl (0-10) 10/11/16 23:34 Hepatitis A IgM Ab Negative (NEGATIVE) 10/13/16 08:04 Hep Bs Antigen Negative (NEGATIVE) 10/13/16 08:04 Hep B Core IgM Ab Negative (NEGATIVE) 10/13/16 08:04 Hepatitis C Antibody Negative (NEGATIVE) 10/13/16 08:04 HIV 1&2 Antibody Screen Negative (NEGATIVE) 10/13/16 08:04 Blood Type B POSITIVE 10/18/16 07:51 Blood Type Confirm B POSITIVE 10/18/16 07:51 Antibody Screen Negative 10/18/16 07:51 - Hospital Course Hospital Course: ADMITTED WITH PANCREATITS AND SHE HAD CYSTS FEVER, HIGH WBC AND SHE WAS GIVEN IV ANTIBIOTICS AND [facility] DID WELL AND SHE UNDERWENT ENDOSCOPY AND DISCHARGED Discharge Exam - Head Exam Head Exam: ATRAUMATIC, NORMAL INSPECTION, NORMOCEPHALIC - Eye Exam Eye Exam: EOMI, Normal appearance, PERRL Pupil Exam: NORMAL ACCOMODATION - ENT Exam ENT Exam: Mucous Membranes Moist, Normal Exam, Normal Oropharynx, TM's Normal Bilaterally - Neck Exam Neck exam: Normal Inspection - Respiratory Exam Respiratory Exam: NORMAL BREATHING PATTERN - Cardiovascular Exam Cardiovascular Exam: REGULAR RHYTHM, +S1, +S2 - GI/Abdominal Exam GI & Abdominal Exam: Normal Bowel Sounds, Soft - Neurological Exam Neurological exam: Alert, CN II-XII Intact, Normal Gait, Oriented x3, Reflexes Normal - Psychiatric Exam Psychiatric exam: Normal Mood - Skin Skin Exam: Intact Discharge Plan - Follow Up Plan Condition: GOOD Disposition: HOME/ ROUTINE Instructions: Tramadol (By mouth), Polyethylene Glycol 3350 (By mouth), Pancreatitis (DC), Urinary Tract Infection in Women (DC), Bacterial Pneumonia ( DC) Additional Instructions: Follow up with in 1 week. Prescription for MVI, Miralax, Ultram Referrals: Pete Gomes MD [Staff Provider] -
== END 2016-10-27 17:15 | disposition home or self-care (01) | DRG 405 ==
LOC: C.ER 21:45 → C.9E 10-12 02:59 → C.6T 10-12 13:21
PROVIDERS: ADMIT Internal Medicine; ATTEND Internal Medicine
PROC: 0F9G4ZX Drainage of Pancreas, Percutaneous Endoscopic Approach, Diagnostic (ICD-10-PCS; 2016-10-16)
PROC: 0DJ08ZZ Inspection of Upper Intestinal Tract, Via Natural or Artificial Opening Endoscopic (ICD-10-PCS; 2016-10-16)
PROC: 0F9G40Z Drainage of Pancreas with Drainage Device, Percutaneous Endoscopic Approach (ICD-10-PCS; 2016-10-18)
PROC: 0F7D8DZ Dilation of Pancreatic Duct with Intraluminal Device, Via Natural or Artificial Opening Endoscopic (ICD-10-PCS; 2016-10-18)
PROC: 0FBG4ZZ Excision of Pancreas, Percutaneous Endoscopic Approach (ICD-10-PCS; 2016-10-21)
PROC: 0F7D8DZ Dilation of Pancreatic Duct with Intraluminal Device, Via Natural or Artificial Opening Endoscopic (ICD-10-PCS; 2016-10-23)
PROC: 0DJ08ZZ Inspection of Upper Intestinal Tract, Via Natural or Artificial Opening Endoscopic (ICD-10-PCS; 2016-10-23)
PROC: 0FPD8DZ Removal of Intraluminal Device from Pancreatic Duct, Via Natural or Artificial Opening Endoscopic (ICD-10-PCS; principal; 2016-10-23 13:18)
DX: K85.22 Alcohol induced acute pancreatitis with infected necrosis (principal); K86.3 Pseudocyst of pancreas; K31.1 Adult hypertrophic pyloric stenosis; K31.5 Obstruction of duodenum; K80.21 Calculus of gallbladder without cholecystitis with obstruction; J90 Pleural effusion, not elsewhere classified; J18.9 Pneumonia, unspecified organism; N39.0 Urinary tract infection, site not specified; K92.0 Hematemesis; B95.62 Methicillin resistant Staphylococcus aureus infection as the cause of diseases classified elsewhere; K86.89 Other specified diseases of pancreas; K86.1 Other chronic pancreatitis; Z62.810 Personal history of physical and sexual abuse in childhood; F10.10 Alcohol abuse, uncomplicated

== ENCOUNTER 2017-01-15 10:52 | Day surgery (SDC) | payer OTHER ==
[2017-01-15] MEDS ORDERED: Iohexol 240 (50 ml) ONE ×5 (13:39→13:48)
[2017-01-15] MEDS ORDERED: Succinylcholine Chloride 20 mg/ml Syr (5 ml) IV ONE (14:05)
[2017-01-15] MEDS ORDERED: Lactated Ringer's 1,000 ML IV ONE (14:10)
[2017-01-15] MEDS ORDERED: Rocuronium 10 mg/ml (5 ml) ONE (14:19)
[2017-01-15] MEDS ORDERED: Esmolol 100 mg/10ml Inj IV ONE (14:19)
[2017-01-15] MEDS ORDERED: Clindamycin 600mg/50ml NS 600 MG/50 ML BAG IVPB STA (14:54)
[2017-01-15] MEDS ORDERED: Ciprofloxacin 400mg/200ml D5W 400 MG/200 ML BAG IVPB STA (14:58)
[2017-01-15] MEDS ORDERED: HYDROmorphone 0.5 mg/0.5 ml ISec IVP PRN (16:17)
[2017-01-15] MEDS ORDERED: HYDROmorphone 1 mg/ml ISec ONE (16:53)
[2017-01-15 17:05] VITALS: O2SAT 100
[2017-01-15 17:41] VITALS: RESP 16
[2017-01-15 18:37] VITALS: BP 118/82; PULSE 87; TEMP 98.9
== END 2017-01-15 18:44 | disposition home or self-care (01) ==
LOC: C.ENDO 10:52
PROVIDERS: ATTEND Internal Medicine
DX: K85.92 Acute pancreatitis with infected necrosis, unspecified (principal); K86.3 Pseudocyst of pancreas; K86.89 Other specified diseases of pancreas
CPT/HCPCS: 43260; 76000; 84703; J0744; J1170; J2405; J3010; J7120; Q9966

== ENCOUNTER 2017-10-18 09:50 | Emergency (ER) | payer OTHER ==
[2017-10-18 09:59] VITALS: TEMP 98.5
[2017-10-18] MEDS ORDERED: Sodium Chloride 0.9% 1,000 ML IV ONE (10:09)
--- NOTE | 2017-10-18 10:14 | C.PDOC ---
History Of Present Illness 27 year old patient with history of pancreatitis presents to the ED complaining of epigastric abdominal pain since this morning. Patient states the pain radiates all over and is similar to when she had pancreatitis. She also reports she has been feeling nauseous, vomiting, and has diarrhea. Denies fever, blood in stool, alcohol/drug abuse. Last known menstrual period; current. Time Seen by Provider: 10/18/17 10:03 Chief Complaint (Nursing): Abdominal Pain History Per: Patient History/Exam Limitations: no limitations Onset/Duration Of Symptoms: Hrs Current Symptoms Are (Timing): Still Present Location Of Pain/Discomfort: Epigastric (radiates all over) Associated Symptoms: Nausea, Vomiting, Diarrhea. denies: Fever Recent travel outside of the [place]: No Abnormal Vaginal Bleeding: No Last Menstral Period: Currently on period Past Medical History Reviewed: Historical Data, Nursing Documentation, Vital Signs Vital Signs: Last Vital Signs Temp 98.5 F 10/18/17 09:56 Pulse 83 10/18/17 09:56 Resp 16 10/18/17 09:56 BP 132/85 10/18/17 09:56 Pulse Ox 100 10/18/17 11:51 - Medical History PMH: Pancreatitis Denies: Chronic Kidney Disease Surgical History: No Surg Hx - [facility] Procedures DILATION OF PANCREATIC DUCT WITH INTRALUMINAL DEVICE, ENDO (10/12/16) DRAINAGE OF PANCREAS WITH DRAIN DEV, PERC ENDO APPROACH (10/12/16) DRAINAGE OF PANCREAS, PERC ENDO APPROACH, DIAGN (10/12/16) EXCISION OF PANCREAS, PERCUTANEOUS ENDOSCOPIC APPROACH (10/12/16) INSPECTION OF UPPER INTESTINAL TRACT, ENDO (10/12/16) REMOVAL OF INTRALUMINAL DEVICE FROM PANCREATIC DUCT, ENDO (10/12/16) Family History: States: No Known Family Hx - Social History Hx Tobacco Use: No Hx Alcohol Use: No Hx Substance Use: No - Immunization History Hx Tetanus Toxoid Vaccination: Yes Hx Influenza Vaccination: No Hx Pneumococcal Vaccination: Yes Review Of Systems Constitutional: Negative for: Fever Cardiovascular: Negative for: Chest Pain Respiratory: Negative for: Shortness of Breath, Wheezing Gastrointestinal: Positive for: Nausea, Vomiting, Diarrhea Neurological: Negative for: Weakness, Numbness Physical Exam - Physical Exam Appears: Non-toxic, Other (uncomfortable) Skin: Warm, Dry, No Rash Head: Atraumatic, Normacephalic Eye(s): bilateral: Normal Inspection Oral Mucosa: Moist Neck: Normal ROM Chest: Symmetrical Cardiovascular: Rhythm Regular, No Murmur Respiratory: Normal Breath Sounds, No Rales, No Rhonchi, No Wheezing Gastrointestinal/Abdominal: Bowel Sounds (active), Soft, Tenderness (epigastric) , No Mass, No Distention, No Guarding, No Rebound, No Hernia Extremity: Bilateral: Atraumatic, Normal Color And Temperature, Normal ROM Neurological/Psych: Oriented x3, Normal Speech Gait: Steady ED Course And Treatment - Laboratory Results Result Diagrams: 10/18/17 10:40 10/18/17 10:40 Lab Interpretation: No Acute Changes O2 Sat by Pulse Oximetry: 100 (RA) Pulse Ox Interpretation: Normal - CT Scan/US A/P Other Rad Studies (CT/US): Read By Radiologist, Radiology Report Reviewed CT/US Interpretation: Accession No. : [id number]. Patient Name / ID : GUCCI Garland / [id number]. Exam Date : 10/18/2017 11:42:05 ( Approved ). Study Comment : Sex / Age : F / 27Y. Creator : Michael Cherry MD. Dictator : Michael Cherry MD. Wood Carving Machine Operator : Director Trade : Michael Cherry MD. Approver2 : Report Date : 10/18/2017 12:09:44. My Comment : . Date of service: 10/18/2017. PROCEDURE: CT Abdomen and Pelvis with contrast. HISTORY: epigastric,,upper abd pain. COMPARISON: Abdomen and pelvis CT with contrast 10/17/2016. TECHNIQUE: Following the intravenous administration of iodinated contrast material, a CT examination of the abdomen and pelvis performed from the domes of the diaphragms to the symphysis pubis with reformatted datasets provided in axial, sagittal and coronal planes. Oral contrast was not administered as per referring physician request. Contrast dose : Visipaque 320, 100 cc. Radiation dose: Total exam DLP = 304.48 mGy-cm. This CT exam was performed using one or more of the following dose reduction techniques: Automated exposure control, adjustment of the mA and/or kV according to patient size, and/or use of iterative reconstruction technique. FINDINGS: LOWER THORAX: Unremarkable. LIVER: Unremarkable. No gross lesion or ductal dilatation. GALLBLADDER AND BILE DUCTS: Gallbladder appears unremarkable. There is no choledocholithiasis. The common hepatic and common bile ducts are diminished in caliber in the interval with CBD and now measuring 7.5 mm and the common hepatic duct mildly dilated but now measuring 8.5 mm compared greater than 1 cm previously. PANCREAS: Current imaging through the pancreas appears diffusely unremarkable with prior associated multi septated cyst at the head now resolved. SPLEEN: Unremarkable. ADRENALS: Unremarkable. No mass. KIDNEYS AND URETERS: Stable lucency seen at the upper midpole right kidney posteriorly remaining a mm and too small to characterize. . No hydronephrosis. No solid mass. VASCULATURE: Unremarkable. No aortic aneurysm. BOWEL: The stomach is moderately distended with retained food and fluid. Mild retained fecal material scattered throughout various large-bowel segments. . No obstruction. APPENDIX: Normal appendix. PERITONEUM: Unremarkable. No free fluid. No free air. LYMPH NODES: Unremarkable. No enlarged lymph nodes. BLADDER: Unremarkable. REPRODUCTIVE: Unremarkable. BONES: No acute fracture. OTHER FINDINGS: None. IMPRESSION: 1. Resolution of prior large multiloculated cyst at the head of the pancreas with the pancreas currently nonfocal in appearance. 2. Diminished common hepatic and common bile duct caliber is as discussed above now mildly dilated. No radiodense choledocholithiasis appreciable. Unremarkable appearing gallbladder and liver. 3. Stable lucency upper pole right kidney too small to characterize. Medical Decision Making Medical Decision Making: Impression: abdominal pain Prior records reviewed: patient has history of recurrent pancreatitis. Last admission10/11/16-10/27/16. Plan * CT abdomen pelvis with IV contrast * Pepcid * Zofran * IV fluids * labs * Urinalysis Labs reviewed. No leukocytosis, anemia or bands. CMP shows no electrolyte abnormality or other acute findings. Urine is clear. CT shows no acute pancreatitis or other acute pathology. On re-evalaution, the patient was sleeping on stretcher in no distress. She reports pain is better. Discussed results with patient, and copy of report was provided. She has no fever, and abdomen remains soft without guarding or rebound. She is asking for Rx for pain, tramadol usually helps. Patient feels comfortable going home and will be discharged. Patient given follow up instructions. Instructed to return to ER if symptoms worsen or new symptoms arise. Disposition Counseled Patient/Family Regarding: Studies Performed, Diagnosis, Need For Followup, Rx Given - Disposition Referrals: Pete Gomes MD [Staff Provider] - Disposition: HOME/ ROUTINE Disposition Time: 12:16 Condition: STABLE Additional Instructions: Rx sent to [facility] pharmacy Your lab results were normal and CT of abdomen does not demonstrate pancreatitis or infectious process. Take medications as needed for your symptoms Follow up with your primary physician for further evaluation Return to the emergency department at any time if symptoms persist or worsen. Prescriptions: Dicyclomine [Bentyl] 10 mg PO QID #20 cap Docusate [Colace] 100 mg PO TID PRN #30 cap PRN Reason: Constipation Ondansetron ODT [Zofran ODT] 1 odt PO BID PRN #6 odt PRN Reason: Nausea/Vomiting traMADol [Ultram] 50 mg PO Q8 #20 tab Instructions: Acute Abdomen (Belly Pain), Adult (DC) Forms: [employer] (Ivorian) - POA Present On Arrival: None - Clinical Impression Clinical Impression: Abdominal pain - PA / AIR ANALYSIS ENGINEERING TECHNICIAN / Resident Statement MD/DO has reviewed & agrees with the documentation as recorded. - Scribe Statement The provider has reviewed the documentation as recorded by the Scribe Kelton Marshalled All medical record entries made by the Jeseniaibe were at my direction and personally dictated by me. I have reviewed the chart and agree that the record accurately reflects my personal performance of the history, physical exam, medical decision making, and the department course for this patient. I have also personally directed, reviewed, and agree with the discharge instructions and disposition.
[2017-10-18] MEDS ORDERED: Sodium Chloride 0.9% 1,000 ML ONE (10:24)
[2017-10-18 10:44] LABS: BASO # 0.1 K/uL (0.0-0.2); BASO % 1.1 % (0.0-2.0); EOS # 0.2 K/uL (0.0-0.7); EOS % 3.1 % (0.0-4.0); LYMPH # 1.6 K/uL (1.0-4.3); LYMPH % 30.4 % (20.0-40.0); MEAN CELL VOLUME 80.1 fL (81.0-99.0); MEAN CORPUSCULAR HEMOGLOBIN 26.9 pg (27.0-31.0); MEAN CORPUSCULAR HGB CONC 33.6 g/dL (33.0-37.0); MEAN PLATELET VOLUME 7.8 fL (7.2-11.7); MONO # 0.4 K/uL (0.0-0.8); MONO % 7.3 % (0.0-10.0); NEUT # 3.1 K/uL (1.8-7.0); NEUT % 58.1 % (50.0-75.0); RBC 4.89 Mil/uL (3.80-5.20); RED CELL DISTRIBUTION WIDTH 15.4 % (11.5-14.5); WHITE BLOOD COUNT 5.4 K/uL (4.8-10.8)
[2017-10-18 10:45] LABS: HEMOGLOBIN 13.1 g/dL (11.0-16.0)
[2017-10-18 10:58] LABS: ALB/GLOB RATIO 1.5 (1.0-2.1); ALBUMIN 4.6 g/dL (3.5-5.0); ALT/SGPT 28 U/L (9-52); AST/SGOT 23 U/L (14-36); BLOOD UREA NITROGEN 14 mg/dL (7-17); CALCIUM 9.9 mg/dl (8.6-10.4); GFR AFRICAN-AMERICAN > 60; GFR NON-AFRICAN AMERICAN > 60; LIPASE 225 U/L (23-300)
[2017-10-18 11:02] LABS: SQUAMOUS EPITHIAL < 1 /hpf (0-5); URINE BILIRUBIN NEGATIVE (NEGATIVE); URINE BLOOD NEGATIVE (NEGATIVE); URINE CLARITY Clear (Clear); URINE COLOR Straw (YELLOW); URINE GLUCOSE (UA) NORMAL (Normal); URINE LEUKOCYTE ESTERASE NEG Leu/uL (Negative); URINE PROTEIN NEGATIVE (NEGATIVE); URINE UROBILINOGEN NORMAL mg/dL (0.2-1.0)
[2017-10-18 11:03] LABS: HCG,QUALITATIVE URINE NEGATIVE (NEGATIVE)
[2017-10-18] MEDS ORDERED: Iodixanol 320 MG/ML 100 ML BOTTLE IV ONE (11:12)
[2017-10-18 11:28] LABS: BARBITURATES, UR NEGATIVE (NEGATIVE); BENZODIAZEPINES, UR NEGATIVE (NEGATIVE); OPIATES, UR NEGATIVE (NEGATIVE); PHENCYCLIDINE, UR NEGATIVE (NEGATIVE)
--- NOTE | 2017-10-18 12:11 | CT ---
Date of service: 10/18/2017 PROCEDURE: CT Abdomen and Pelvis with contrast HISTORY: epigastric,,upper abd pain COMPARISON: Abdomen and pelvis CT with contrast 10/17/2016. TECHNIQUE: Following the intravenous administration of iodinated contrast material, a CT examination of the abdomen and pelvis performed from the domes of the diaphragms to the symphysis pubis with reformatted datasets provided in axial, sagittal and coronal planes. Oral contrast was not administered as per referring physician request. Contrast dose: Visipaque 320, 100 cc Radiation dose: Total exam DLP = 304.48 mGy-cm. This CT exam was performed using one or more of the following dose reduction techniques: Automated exposure control, adjustment of the mA and/or kV according to patient size, and/or use of iterative reconstruction technique. FINDINGS: LOWER THORAX: Unremarkable. LIVER: Unremarkable. No gross lesion or ductal dilatation. GALLBLADDER AND BILE DUCTS: Gallbladder appears unremarkable. There is no choledocholithiasis. The common hepatic and common bile ducts are diminished in caliber in the interval with CBD and now measuring 7.5 mm and the common hepatic duct mildly dilated but now measuring 8.5 mm compared greater than 1 cm previously. PANCREAS: Current imaging through the pancreas appears diffusely unremarkable with prior associated multi septated cyst at the head now resolved. SPLEEN: Unremarkable. ADRENALS: Unremarkable. No mass. KIDNEYS AND URETERS: Stable lucency seen at the upper midpole right kidney posteriorly remaining a mm and too small to characterize. . No hydronephrosis. No solid mass. VASCULATURE: Unremarkable. No aortic aneurysm. BOWEL: The stomach is moderately distended with retained food and fluid. Mild retained fecal material scattered throughout various large-bowel segments. . No obstruction. APPENDIX: Normal appendix. PERITONEUM: Unremarkable. No free fluid. No free air. LYMPH NODES: Unremarkable. No enlarged lymph nodes. BLADDER: Unremarkable. REPRODUCTIVE: Unremarkable. BONES: No acute fracture. OTHER FINDINGS: None. IMPRESSION: 1. Resolution of prior large multiloculated cyst at the head of the pancreas with the pancreas currently nonfocal in appearance. 2. Diminished common hepatic and common bile duct caliber is as discussed above now mildly dilated. No radiodense choledocholithiasis appreciable. Unremarkable appearing gallbladder and liver. 3. Stable lucency upper pole right kidney too small to characterize.
[2017-10-18 12:33] VITALS: BP 119/83; PULSE 87; RESP 18; O2SAT 100
== END 2017-10-18 12:32 | disposition home or self-care (01) ==
LOC: C.ER 09:50
DX: R10.13 Epigastric pain (principal)
CPT/HCPCS: 74177; 80053; 80320; 80324; 80345; 80346; 80349; 80353; 80358; 80361; 81001; 83690; 83992; 84703; 85025; 87086; 96361; 96374; 96375; 99284; J2405; J7030; Q9967

== ENCOUNTER 2018-03-12 15:07 | Observation (INO) | payer OTHER ==
--- NOTE | 2018-03-12 16:44 | C.PDOC ---
History Of Present Illness 27 years old female with PMHx of pancreatitis and laparoscopy presents to ED for complaints of intermittent abdominal pain associated with nausea, vomiting, and diarrhea that began 4 days ago. Patient states pain worsens with food. Time Seen by Provider: 03/12/18 16:07 Chief Complaint (Nursing): Abdominal Pain History Per: Patient History/Exam Limitations: no limitations Onset/Duration Of Symptoms: Hrs Current Symptoms Are (Timing): Still Present Radiation Of Pain To:: Back Associated Symptoms: Nausea, Vomiting, Diarrhea. denies: Fever, Chills Exacerbating Factors: Food Alleviating Factors: None Last Bowel Movement: Today Recent travel outside of the [place]: No Abnormal Vaginal Bleeding: No Past Medical History Reviewed: Historical Data, Nursing Documentation, Vital Signs Vital Signs: Last Vital Signs Temp 98.1 F 03/12/18 15:22 Pulse 72 03/12/18 15:22 Resp 17 03/12/18 15:22 BP 116/81 03/12/18 15:22 Pulse Ox 100 03/12/18 15:22 - Medical History PMH: Pancreatitis Denies: Chronic Kidney Disease Surgical History: Endoscopy - [facility] Procedures DILATION OF PANCREATIC DUCT WITH INTRALUMINAL DEVICE, ENDO (10/12/16) DRAINAGE OF PANCREAS WITH DRAIN DEV, PERC ENDO APPROACH (10/12/16) DRAINAGE OF PANCREAS, PERC ENDO APPROACH, DIAGN (10/12/16) EXCISION OF PANCREAS, PERCUTANEOUS ENDOSCOPIC APPROACH (10/12/16) INSPECTION OF UPPER INTESTINAL TRACT, ENDO (10/12/16) REMOVAL OF INTRALUMINAL DEVICE FROM PANCREATIC DUCT, ENDO (10/12/16) Family History: States: Unknown Family Hx - Social History Hx Tobacco Use: No Hx Alcohol Use: No Hx Substance Use: No - Immunization History Hx Tetanus Toxoid Vaccination: No Hx Influenza Vaccination: Yes Hx Pneumococcal Vaccination: No Review Of Systems Except As Marked, All Systems Reviewed And Found Negative. Gastrointestinal: Positive for: Vomiting, Abdominal Pain, Diarrhea Physical Exam - Physical Exam Appears: Non-toxic, No Acute Distress Skin: Normal Color, Warm, Dry, No Rash Head: Atraumatic, Normacephalic Eye(s): bilateral: Normal Inspection, PERRL, EOMI Oral Mucosa: Moist Neck: Normal ROM, Supple Chest: Symmetrical, No Tenderness Cardiovascular: Rhythm Regular, No Murmur Respiratory: Normal Breath Sounds, No Rales, No Rhonchi, No Wheezing Gastrointestinal/Abdominal: Soft, Tenderness (Generalized ), No Guarding, No Rebound Extremity: Normal ROM Extremity: Bilateral: Atraumatic, Normal Color And Temperature, Normal ROM Pulses: Left Radial: Normal, Right Radial: Normal Neurological/Psych: Oriented x3, Normal Speech Gait: Steady ED Course And Treatment - Laboratory Results Result Diagrams: 03/12/18 17:09 03/12/18 17:09 O2 Sat by Pulse Oximetry: 100 (RA) Pulse Ox Interpretation: Normal Disposition Discussed With Dr.: Pete Gomes Doctor Will See Patient In The: Hospital Counseled Patient/Family Regarding: Studies Performed, Diagnosis - Disposition Disposition: HOSPITALIZED Disposition Time: 18:55 Condition: FAIR Forms: [facility] (Icelandic) - Clinical Impression Clinical Impression: Abdominal pain, Pancreatic duct dilated - Scribe Statement The provider has reviewed the documentation as recorded by the Jeseniaibneisha Finley All medical record entries made by the Jeseniaibneisha were at my direction and personally dictated by me. I have reviewed the chart and agree that the record accurately reflects my personal performance of the history, physical exam, medical decision making, and the department course for this patient. I have also personally directed, reviewed, and agree with the discharge instructions and disposition.
[2018-03-12] MEDS ORDERED: Sodium Chloride 0.9% 1,000 ML IV ONE (16:54)
[2018-03-12 17:13] LABS: SQUAMOUS EPITHIAL 10 /hpf (0-5); URINE BACTERIA RARE (<OCC); URINE BILIRUBIN NEGATIVE (NEGATIVE); URINE BLOOD 1+ (NEGATIVE); URINE CLARITY Hazy (Clear); URINE COLOR Yellow (YELLOW); URINE GLUCOSE (UA) NORMAL (Normal); URINE LEUKOCYTE ESTERASE NEG Leu/uL (Negative); URINE PROTEIN NEGATIVE (NEGATIVE); URINE UROBILINOGEN NORMAL mg/dL (0.2-1.0)
[2018-03-12 17:13] LABS: BASO % 0.6 % (0.0-2.0); EOS # 0.2 K/uL (0.0-0.7); EOS % 3.3 % (0.0-4.0); HEMOGLOBIN 12.8 g/dL (11.0-16.0); LYMPH % 35.7 % (20.0-40.0); MEAN CELL VOLUME 83.3 fL (81.0-99.0); MEAN CORPUSCULAR HGB CONC 32.4 g/dL (33.0-37.0); MEAN PLATELET VOLUME 7.8 fL (7.2-11.7); MONO # 0.4 K/uL (0.0-0.8); MONO % 7.8 % (0.0-10.0); NEUT # 2.9 K/uL (1.8-7.0); NEUT % 52.6 % (50.0-75.0); NRBC % 0.1 % (0.0-2.0); RBC 4.72 Mil/uL (3.80-5.20); RED CELL DISTRIBUTION WIDTH 15.8 % (11.5-14.5); WHITE BLOOD COUNT 5.6 K/uL (4.8-10.8)
[2018-03-12] MEDS ORDERED: Sodium Chloride 0.9% 1,000 ML ONE (17:18)
[2018-03-12 17:29] LABS: ALB/GLOB RATIO 1.5 (1.0-2.1); ALBUMIN 4.4 g/dL (3.5-5.0); ALT/SGPT 20 U/L (9-52); AST/SGOT 21 U/L (14-36); BLOOD UREA NITROGEN 12 mg/dL (7-17); CALCIUM 9.2 mg/dl (8.6-10.4); GFR NON-AFRICAN AMERICAN > 60; LIPASE 46 U/L (23-300)
[2018-03-12] MEDS ORDERED: Iodixanol 320 MG/ML 100 ML BOTTLE IV ONE (17:48)
--- NOTE | 2018-03-12 18:33 | CT ---
Date of service: 03/12/2018 PROCEDURE: CT Abdomen and Pelvis with contrast HISTORY: abd pain COMPARISON: CT abdomen pelvis with IV contrast performed 10/18/[address] abdomen and pelvis with IV contrast performed 10/17/16 TECHNIQUE: Contrast dose: 100 mL Omnipaque 300 Radiation dose: Total exam DLP = 651.15 mGy-cm. This CT exam was performed using one or more of the following dose reduction techniques: Automated exposure control, adjustment of the mA and/or kV according to patient size, and/or use of iterative reconstruction technique. FINDINGS: Motion limits evaluation particularly of the upper to mid abdomen. LOWER THORAX: No visible consolidation, pleural effusion, or pneumothorax. Thickened distal esophagus/small hiatal hernia. LIVER: Unremarkable. GALLBLADDER AND BILE DUCTS: Unremarkable. PANCREAS: Dilated pancreatic duct measures approximately 4 mm in diameter. Pancreatic body is not well visualized. SPLEEN: Unremarkable. ADRENALS: Unremarkable. KIDNEYS AND URETERS: The kidneys enhance symmetrically. No hydronephrosis or obstructing calculus identified. 8 mm left renal hypodense focus re-identified which measures higher than expected Hounsfield units for simple cyst, 45 HU. VASCULATURE: No aortic aneurysm. No atherosclerotic calcification or mural plaque present. BOWEL: Stomach is nondistended. Lack of oral contrast limits evaluation for bowel pathology. Bowel loops appear within normal limits of caliber without evidence of obstruction. Suspect small bowel wall thickening in the left upper quadrant poorly assessed due to motion. Enteritis may be considered. APPENDIX: The appendix appears within normal limits of caliber. No secondary signs of acute appendicitis. PERITONEUM: No significant free fluid. No definite free air. LYMPH NODES: No bulky adenopathy identified. Probable sub cm mesenteric/retroperitoneal lymph nodes. BLADDER: Distention of the urinary bladder appears otherwise unremarkable. REPRODUCTIVE: The uterus is present. BONES: Scoliosis. OTHER FINDINGS: None. IMPRESSION: Examination limited by patient motion. Mildly dilated pancreatic duct measures approximately 4 mm. 8 mm left renal hypodense focus re-identified which does not meet the criteria for a simple cyst. Ultrasound may be considered for further characterization if indicated. Suspect small bowel wall thickening in the left upper quadrant poorly assessed due to motion. Enteritis may be considered. Probable sub cm mesenteric/retroperitoneal lymph nodes. Thickened distal esophagus/small hiatal hernia. Additional findings as above.
[2018-03-12 21:27] VITALS: RESP 20
[2018-03-12] MEDS: Dextrose 5%/0.45% NS 1,000 ML IV SCH (21:53)
--- NOTE | 2018-03-12 23:17 | CP.PCM.HP ---
Past Patient History - Past Medical History & Family History Past Medical History?: Yes - Past Social History Smoking Status: Never Smoked - CARDIAC Hx Cardiac Disorders: No - PULMONARY Hx Respiratory Disorders: No - NEUROLOGICAL Hx Neurological Disorder: No - HEENT Hx HEENT Problems: No - RENAL Hx Chronic Kidney Disease: No - ENDOCRINE/METABOLIC Hx Endocrine Disorders: No - HEMATOLOGICAL/ONCOLOGICAL Hx Blood Disorders: No - INTEGUMENTARY Hx Dermatological Problems: No - MUSCULOSKELETAL/RHEUMATOLOGICAL Hx Musculoskeletal Disorders: No Hx Falls: No - GASTROINTESTINAL Hx Pancreatitis: Yes - GENITOURINARY/GYNECOLOGICAL Hx Genitourinary Disorders: No - PSYCHIATRIC Hx Substance Use: No - SURGICAL HISTORY Hx Surgeries: No - ANESTHESIA Hx Anesthesia: Yes Hx Anesthesia Reactions: Yes (WAKES UP IN A PANIC) Meds Allergies/Adverse Reactions: Allergies Allergy/AdvReac Type Severity Reaction Status Date / Time Penicillins Allergy ANAPHYLAXIS Verified 03/12/18 15:25 Results - Vital Signs Recent Vital Signs: Last Vital Signs Temp 98.2 F 03/12/18 21:25 Pulse 75 03/12/18 21:25 Resp 20 03/12/18 21:25 BP 106/73 03/12/18 21:25 Pulse Ox 95 03/12/18 22:42 - Labs Result Diagrams: 03/12/18 17:09 03/12/18 17:09 Labs: Laboratory Results - last 24 hr 03/12/18 03/12/18 03/12/18 17:03 17:09 17:09 WBC 5.6 RBC 4.72 Hgb 12.8 Hct 39.3 MCV 83.3 D MCH 27.0 MCHC 32.4 L RDW 15.8 H Plt Count 304 MPV 7.8 Neut % (Auto) 52.6 Lymph % (Auto) 35.7 [place] % (Auto) 7.8 Eos % (Auto) 3.3 Baso % (Auto) 0.6 Neut # (Auto) 2.9 Lymph # (Auto) 2.0 Wilcox # (Auto) 0.4 Eos # (Auto) 0.2 Baso # (Auto) 0.0 Sodium 138 Potassium 4.3 Chloride 103 Carbon Dioxide 27 Anion Gap 12 BUN 12 Creatinine 0.7 Est GFR ( Amer) > 60 Est GFR (Non-Af Amer) > 60 Random Glucose 97 Calcium 9.2 Total Bilirubin 0.3 AST 21 ALT 20 Alkaline Phosphatase 66 Total Protein 7.3 Albumin 4.4 Globulin 2.9 Albumin/Globulin Ratio 1.5 Lipase 46 Urine Color Yellow Urine Clarity Hazy Urine pH 6.0 Ur Specific [place] 1.020 Urine Protein Negative Urine Glucose (UA) Normal Urine Ketones Negative Urine Blood 1+ H Urine Nitrate Negative Urine Bilirubin Negative Urine Urobilinogen Normal Ur Leukocyte Esterase Neg Urine WBC (Auto) 1 Urine RBC (Auto) 11 H Ur Squamous Epith Cells 10 H Urine Bacteria Rare
[2018-03-13 07:18] LABS: HEMOGLOBIN 12.3 g/dL (11.0-16.0); MEAN CELL VOLUME 83.2 fL (81.0-99.0); MEAN CORPUSCULAR HEMOGLOBIN 27.2 pg (27.0-31.0); MEAN CORPUSCULAR HGB CONC 32.7 g/dL (33.0-37.0); MEAN PLATELET VOLUME 8.1 fL (7.2-11.7); RBC 4.53 Mil/uL (3.80-5.20); RED CELL DISTRIBUTION WIDTH 15.3 % (11.5-14.5); WHITE BLOOD COUNT 4.1 K/uL (4.8-10.8)
[2018-03-13] MEDS: Dextrose 5%/0.45% NS 1,000 ML IV SCH ×3 (07:26→17:22)
[2018-03-13 07:43] LABS: ALB/GLOB RATIO 1.4 (1.0-2.1); ALBUMIN 3.6 g/dL (3.5-5.0); ALT/SGPT 18 U/L (9-52); AMYLASE 81 U/L (30-110); AST/SGOT 20 U/L (14-36); BLOOD UREA NITROGEN 8 mg/dL (7-17); CALCIUM 8.1 mg/dl (8.6-10.4); GFR NON-AFRICAN AMERICAN > 60; LIPASE 67 U/L (23-300)
--- NOTE | 2018-03-13 14:02 | PN ---
DATE: 03/12/2018 LOCATION: Room 360, bed B. SUBJECTIVE: The patient is a 27-year-old female, seen and examined in the rounds for GI consultation on 03/12/2018, reexamined again today with less abdominal pain. The entire chart is reviewed including but not limited to the most recent lab and radiology study results, current and the previous medication list, current and the previous medical events. The patient denied any significant vomiting, but mild nausea and dyspepsia, preferred to hold any aggressive GI procedures in the meantime for now and asked for liquid diet. No chest pain or palpitation. Official report of the recently done CAT scan is seen. Lab results showed normal CBC so far with calcium 8.1, total protein 6.2 with normal lipase and amylase level. PHYSICAL EXAMINATION: GENERAL: A 27-year-old female, awake, alert, oriented. VITAL SIGNS: Afebrile with pulse of 68, respiratory rate 20 to 22, blood pressure 102/64. HEENT: Showed pale dry oral mucoid membrane. Nonicteric sclerae. LUNGS: Few scattered capitations, breathing sounds are present bilaterally. EXTREMITIES: Without edema, clubbing or cyanosis. CENTRAL NERVOUS SYSTEM: No neurological deficit reported. ABDOMEN: Soft with slight generalized tenderness. No mass or organomegaly. No rebound tenderness or guarding. IMPRESSION: 1. 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 2. Re-exacerbation of peptic ulcer disease. 3. Left renal cyst with evidence of enteritis with distal esophagitis and hiatus hernia. SUGGESTIONS: 1. Continue current management. 2. Advance diet. 3. If the patient's symptoms persist, then upper endoscopy to be ordered. Further recommendation to follow. Vicki Watson MD
--- NOTE | 2018-03-13 21:52 | CP.PCM.PN ---
Subjective - Subjective Subjective: dictated Objective - Vital Signs/Intake and Output Vital Signs (last 24 hours): Temp Pulse Resp BP Pulse Ox 97.8 F 75 20 117/72 99 03/13/18 16:00 03/13/18 16:00 03/13/18 16:00 03/13/18 16:00 03/13/18 16:45 Intake and Output: 03/13/18 03/14/18 18:59 06:59 Intake Total 800 Balance 800 - Medications Medications: Current Medications Famotidine (Pepcid) 20 mg IVP Q12 [facility] Last Admin: 03/13/18 21:23 Dose: 20 mg Dextrose/Sodium Chloride (Dextrose 5%/0.45% Ns 1000 Ml) 1,000 mls @ 100 mls/hr IV .Q10H [facility] Last Admin: 03/13/18 17:22 Dose: 100 mls/hr Ketorolac Tromethamine (Toradol) 30 mg IVP Q6 PRN PRN Reason: Pain, moderate (4-7) Morphine Sulfate (Morphine) 1 mg IVP Q3 PRN PRN Reason: Pain, severe (8-10) Last Admin: 03/13/18 17:19 Dose: 1 mg Pneumococcal Polyvalent Vaccine (Pneumovax 23 Vaccine) 0.5 ml IM .ONCE ONE Stop: 03/14/18 10:01 - Labs Labs: 03/13/18 07:10 03/13/18 07:10
--- NOTE | 2018-03-14 01:20 | PN ---
DATE: 03/13/2018 SUBJECTIVE: The patient has decreased abdominal pain, decreased nausea, vomiting. She has been n.p.o. overnight, no fever, no chills. PHYSICAL EXAMINATION: VITAL SIGNS: Blood pressure 117/72, pulse 75, respiratory rate 20, temperature 97.8. LUNGS: Clear. CARDIOVASCULAR SYSTEM: S1, S2 regular. ABDOMEN: Epigastric tenderness. ASSESSMENT: 1. Pancreatitis. 2. Gastritis. 3. Dehydration. PLAN: Monitor the patient. Clear liquid diet. Pete Gomes MD
--- NOTE | 2018-03-14 01:48 | HP ---
CHIEF COMPLAINT: Abdominal pain. HISTORY OF PRESENT ILLNESS: This is a 27-year-old white female, well known to me with history of recurrent episode of pancreatitis. Other than pancreatitis, she denies any significant past medical history. She denies any smoking, drinking. She is not being actually followed up by any physician. The patient since Friday has been having epigastric and right upper quadrant abdominal pain associated with nausea and episodes of vomiting. Pain has been on and off, and she is suspected pancreatitis, and the day before admission, that pain got worse and she felt sick and she came to emergency room and she was hospitalized. Pain is intermittent, associated with diarrhea as well. No fever, no chills. She denies any alcohol use. She had a history of pancreatitis in the past workup and there was no real etiology of pancreatitis. She denies any joint pain, hip pain. She denies any tingling, numbness, paresthesias of lower extremities. She denies any sneezing, itchy eyes, itchy nose. She denies taking any medications. PAST MEDICAL HISTORY: Pancreatitis. SOCIAL HISTORY: Nonsmoker. Non-EtOH user. CURRENT MEDICATIONS: None. PHYSICAL EXAMINATION: GENERAL: This is a young female in no acute distress. VITAL SIGNS: Blood pressure 116/81, pulse 72, respiratory rate 17, and temperature 98.1. SKIN: No rashes. No bruises. No purpura. HEENT: Atraumatic, normocephalic. Negative pallor. Negative jaundice. Extraocular movements are intact. NECK: Supple. No JVD. No lymph node. No thyromegaly. CHEST: Chest wall, bilateral symmetrical expansion. LUNGS: Clear. No rales. No rhonchi. CARDIOVASCULAR SYSTEM: PMI not localized. S1 and S2 regular. No heave. No thrill. ABDOMEN: Soft. Right upper quadrant tenderness. Bowel sounds are present. EXTREMITIES: No clubbing, cyanosis, or edema. CENTRAL NERVOUS SYSTEM: Awake, alert, and oriented x3. RECTAL AND PELVIC: Deferred. ASSESSMENT: 1. Acute pancreatitis. Rule out gastritis. 2. Dehydration. PLAN: Admit. Detailed orders written. Seen and examined. Pete Mireya, MD
[2018-03-14] MEDS: Dextrose 5%/0.45% NS 1,000 ML IV SCH ×2 (02:45→11:28)
--- NOTE | 2018-03-14 08:16 | PN ---
DATE: 03/13/2018 LOCATION: 360, bed B. SUBJECTIVE: This is a 27-year-old female, seen and examined in rounds with recurrent episodes of abdominal pain, somewhat tolerating oral intake with postprandial abdominal distention. The entire chart is reviewed and the most recent lab results today is still pending. However, the patient still has normal CBC with low calcium and low total protein. The previously done CAT scan of the abdomen and pelvis, report is reviewed again. PHYSICAL EXAMINATION: GENERAL: A 27-year-old female, awake, alert and oriented. VITAL SIGNS: Afebrile with pulse of 74, respiratory 20 to 22, blood pressure 104/64. HEENT: Showed pale dry oral mucoid membrane. Nonicteric sclerae. LUNGS: Few scattered crepitation. Decreased air entry at bases. HEART: Positive S1 and S2. ABDOMEN: Soft with [id number] midepigastric and midabdominal tenderness. No mass or organomegaly. No rebound tenderness or guarding. The patient experienced episodes of mild nausea and dyspepsia during my physical examination. EXTREMITIES: Without edema, clubbing or cyanosis. NEUROLOGIC: No reported new neurological deficits, sensory or motor. IMPRESSION: 1. Re-exacerbation of peptic ulcer disease. 2. Reported history of pancreatitis with status post endoscopic retrograde cholangiopancreatography of unclear indication at the time done on January 2017, done by another building inspection engineer with unsuccessful trial of insertion of pancreatic stent as per report. 3. Left renal cyst. 4. Enteritis by radiology study results with distal esophagitis and hiatus hernia. SUGGESTIONS: 1. Continue current management. 2. The patient will need endoscopic evaluation of the upper GI tract. 3. Reglan IV. 4. Currently liquid p.o. 5. We will follow up closely with you. Vicki Watson MD
[2018-03-14] MEDS ORDERED: Pneumococcal 23-Valent Vaccine IM ONE (10:00)
[2018-03-14 15:43] VITALS: BP 107/71; PULSE 73; TEMP 98.8; O2SAT 98
--- NOTE | 2018-03-14 21:21 | CP.PCM.DIS ---
Provider - Provider Date of Admission: 03/12/18 18:55 Attending physician: Pete Gomes MD Consults: 03/12/18 21:35 Gastroenterology Consult Routine Comment: Consulting Provider: Vicki Pina Consulting Physician: Vicki Pina Reason for Consult: abdominal pain Hospital Course - Lab Results Lab Results: Most Recent Lab Values WBC 4.1 K/uL (4.8-10.8) L 03/13/18 07:10 RBC 4.53 Mil/uL (3.80-5.20) 03/13/18 07:10 Hgb 12.3 g/dL (11.0-16.0) 03/13/18 07:10 Hct 37.7 % (34.0-47.0) 03/13/18 07:10 MCV 83.2 fL (81.0-99.0) 03/13/18 07:10 MCH 27.2 pg (27.0-31.0) 03/13/18 07:10 MCHC 32.7 g/dL (33.0-37.0) L 03/13/18 07:10 RDW 15.3 % (11.5-14.5) H 03/13/18 07:10 Plt Count 259 K/uL (130-400) 03/13/18 07:10 MPV 8.1 fL (7.2-11.7) 03/13/18 07:10 Neut % (Auto) 52.6 % (50.0-75.0) 03/12/18 17:09 Lymph % (Auto) 35.7 % (20.0-40.0) 03/12/18 17:09 [place] % (Auto) 7.8 % (0.0-10.0) 03/12/18 17:09 Eos % (Auto) 3.3 % (0.0-4.0) 03/12/18 17:09 Baso % (Auto) 0.6 % (0.0-2.0) 03/12/18 17:09 Neut # (Auto) 2.9 K/uL (1.8-7.0) 03/12/18 17:09 Lymph # (Auto) 2.0 K/uL (1.0-4.3) 03/12/18 17:09 [place] # (Auto) 0.4 K/uL (0.0-0.8) 03/12/18 17:09 Eos # (Auto) 0.2 K/uL (0.0-0.7) 03/12/18 17:09 Baso # (Auto) 0.0 K/uL (0.0-0.2) 03/12/18 17:09 PT 11.0 SECONDS (9.7-12.2) 03/14/18 10:49 INR 1.0 03/14/18 10:49 APTT 28 SECONDS (21-34) 03/14/18 10:49 Sodium 137 mmol/L (132-148) 03/13/18 07:10 Potassium 3.9 mmol/L (3.6-5.2) 03/13/18 07:10 Chloride 107 mmol/L (98-107) 03/13/18 07:10 Carbon Dioxide 25 mmol/L (22-30) 03/13/18 07:10 Anion Gap 10 (10-20) 03/13/18 07:10 BUN 8 mg/dL (7-17) 03/13/18 07:10 Creatinine 0.7 mg/dL (0.7-1.2) 03/13/18 07:10 Est GFR ( Amer) > 60 03/13/18 07:10 Est GFR (Non-Af Amer) > 60 03/13/18 07:10 Random Glucose 104 mg/dL (65-105) 03/13/18 07:10 Calcium 8.1 mg/dl (8.6-10.4) L 03/13/18 07:10 Total Bilirubin 0.3 mg/dL (0.2-1.3) 03/13/18 07:10 AST 20 U/L (14-36) 03/13/18 07:10 ALT 18 U/L (9-52) 03/13/18 07:10 Alkaline Phosphatase 55 U/L (38-126) 03/13/18 07:10 Total Protein 6.2 g/dL (6.3-8.3) L 03/13/18 07:10 Albumin 3.6 g/dL (3.5-5.0) 03/13/18 07:10 Globulin 2.6 gm/dL (2.2-3.9) 12/28/18 07:10 Albumin/Globulin Ratio 1.4 (1.0-2.1) 03/13/18 07:10 Amylase 81 U/L (30-110) 03/13/18 07:10 Lipase 67 U/L (23-300) 03/13/18 07:10 Urine Color Yellow (YELLOW) 03/12/18 17:03 Urine Clarity Hazy (Clear) 03/12/18 17:03 Urine pH 6.0 (5.0-8.0) 03/12/18 17:03 Ur Specific [place] 1.020 (1.003-1.030) 03/12/18 17:03 Urine Protein Negative mg/dL (NEGATIVE) 03/12/18 17:03 Urine Glucose (UA) Normal mg/dL (Normal) 03/12/18 17:03 Urine Ketones Negative mg/dL (NEGATIVE) 03/12/18 17:03 Urine Blood 1+ (NEGATIVE) H 03/12/18 17:03 Urine Nitrate Negative (NEGATIVE) 03/12/18 17:03 Urine Bilirubin Negative (NEGATIVE) 03/12/18 17:03 Urine Urobilinogen Normal mg/dL (0.2-1.0) 03/12/18 17:03 Ur Leukocyte Esterase Neg Mina/uL (Negative) 03/12/18 17:03 Urine WBC (Auto) 1 /hpf (0-5) 03/12/18 17:03 Urine RBC (Auto) 11 /hpf (0-3) H 03/12/18 17:03 Ur Squamous Epith Cells 10 /hpf (0-5) H 03/12/18 17:03 Urine Bacteria Rare (<OCC) 03/12/18 17:03 Discharge Plan - Discharge Medications Prescriptions: Lipase/Protease/Amylase [Miryam Crowley 40,000 Units Capsule] 1 each PO TID #90 capsule. - Follow Up Plan Condition: FAIR Disposition: HOME/ ROUTINE Instructions: Acute Abdominal Pain (DC), Acute Abdominal Pain (GEN) Additional Instructions: Please f/u with Dr. Gomes office in 1 week Please continue medications as per med. rec.
--- NOTE | 2018-03-15 04:32 | CON ---
DATE: 03/12/[address] Watson to Dr. Pete Gomes. I was called for GI consultation by the admitting medical team. The patient is seen and fully examined on 03/12/[address] Gomes. The entire chart was reviewed including but not limited to most recent lab and radiology study results, current and previous medication lists, current and the previous medical events, allergy to medication list as well as all the available current and the previous medical records. Case was discussed at length at the time of my GI consultation on 03/12/2018. The case was discussed with Dr. Gomes. HISTORY OF PRESENT ILLNESS: This is a 27-year-old female with reported history of pancreatitis, as per record who was admitted to the hospital with intermittent but sharp abdominal pain with recurrent episodes of nausea, dyspepsia, vomiting and subsequently diarrhea for six days prior to her admission with generalized weakness and malaise which was aggravated by oral intake. PAST MEDICAL HISTORY: As reported in the record, pancreatitis with recurrent peptic ulcer disease. The patient had apparently pancreatic pseudocyst with ERCP. The indication of the ERCP at that time was not completely clear in the record. FAMILY HISTORY: Unknown. SOCIAL HISTORY: No recent known history of cigarette smoking or alcohol intake. CURRENT MEDICATIONS: Post-admission medication was reviewed. ALLERGY TO MEDICATIONS: Unknown. It has to be mentioned that apparently a trial by another it program engagement director done on 10/12/2016 for possible pancreatic stent insertion was unsuccessful. Again, the indication for that was no clear in the record. At the time of admission, the patient had normal CBC with normal SMA-7. PHYSICAL EXAMINATION: GENERAL: A 27-year-old female. Awake, alert, oriented. Complaining of abdominal pain. VITAL SIGNS: Afebrile with a pulse of 74, respiratory rate 18 to 20, blood pressure 120/84. HEENT: Showed pale, dry mucous membrane slightly with nonicteric sclerae. HEART: Regular S1 and S2. LUNGS: Few scattered mild crepitation. Decreased air entry at bases. ABDOMEN: Soft with moderate midepigastric and mid abdominal line tenderness. No mass or organomegaly. No rebound tenderness or guarding. EXTREMITIES: Without edema, clubbing, or cyanosis. NEUROLOGIC: No reported new neurological deficits, sensory or motor. IMPRESSION: 1. Re-exacerbation of peptic ulcer disease. 2. Probable re-exacerbation of mild pancreatitis. 3. Rule out recurrent pancreatic pseudocyst formation. SUGGESTIONS: 1. Agree with your plan. 2. Sectional abdominal and pelvic CAT scan. 3. Serum lipase and amylase levels. 4. Endoscopic evaluation of the upper GI tract. 5. Antireflux measures. 6. Further recommendation to follow. Thank you for letting me to participate in your patient's case management. Vicki Watson MD
--- NOTE | 2018-03-16 08:20 | DS ---
DISCHARGE DIAGNOSES: 1. Acute abdominal pain, etiology unknown. 2. Dehydration. HISTORY OF PRESENT ILLNESS: This is a 27-year-old white female, well known to me with the history of prior attacks of pancreatitis with multiple hospitalizations. She had something few days ago, and she started having, nausea, vomiting, and right upper quadrant abdominal pain, non-radiating, not associated with diaphoresis or dizziness. Pain is sharp intense, no rectal bleeding. No hematosis, melena, or hematochezia. She denies any joint pain, hip pain. She denies any history of hypertriglyceridemia, diabetes. She denies any drinking. No gallstones. The patient was admitted, started on n.p.o., IV fluids, pain medications, IV Pepcid, and she improved. Amylase and lipase remained normal she was started on clear liquid diet, proceeded to solid diet, and she did well. PHYSICAL EXAMINATION: VITAL SIGNS: Blood pressure 107/71, pulse 73, respiratory rate 20, temperature 98.8. LUNGS: Clear. CARDIOVASCULAR SYSTEM: S1 and S2 are regular. ABDOMEN: Soft. Right upper quadrant tenderness. PLAN: Discharge patient. Pete Gomes MD
== END 2018-03-14 18:35 | disposition home or self-care (01) ==
LOC: C.ER 15:07 → C.9E 18:55 → C.3T 21:00
PROVIDERS: ADMIT Internal Medicine; ATTEND Internal Medicine
DX: R10.9 Unspecified abdominal pain (principal); E86.0 Dehydration; K20.9 Esophagitis, unspecified; K27.9 Peptic ulcer, site unspecified, unspecified as acute or chronic, without hemorrhage or perforation; K29.70 Gastritis, unspecified, without bleeding; K52.9 Noninfective gastroenteritis and colitis, unspecified; N28.1 Cyst of kidney, acquired; K86.89 Other specified diseases of pancreas; Z87.11 Personal history of peptic ulcer disease
CPT/HCPCS: 36415; 74177; 80053; 81001; 82150; 83690; 85025; 85027; 85610; 85730; 96361; 96374; 96375; 99284; G0378; J1885; J2270; J2405; J7030; J7042; Q9967

== ENCOUNTER 2018-06-10 04:07 | Observation (INO) | payer OTHER ==
[2018-06-10 05:00] LABS: BASO % 0.6 % (0.0-2.0); EOS # 0.5 K/uL (0.0-0.7); EOS % 6.2 % (0.0-4.0); HEMOGLOBIN 12.8 g/dL (11.0-16.0); LYMPH % 26.3 % (20.0-40.0); MEAN CELL VOLUME 83.3 fL (81.0-99.0); MEAN CORPUSCULAR HGB CONC 32.5 g/dL (33.0-37.0); MONO # 0.7 K/uL (0.0-0.8); MONO % 9.1 % (0.0-10.0); NEUT # 4.5 K/uL (1.8-7.0); NEUT % 57.8 % (50.0-75.0); RBC 4.74 Mil/uL (3.80-5.20); RED CELL DISTRIBUTION WIDTH 14.4 % (11.5-14.5); WHITE BLOOD COUNT 7.8 K/uL (4.8-10.8)
[2018-06-10 05:12] LABS: SPERM URINE RARE /hpf; SQUAMOUS EPITHIAL 2 /hpf (0-5); URINE BACTERIA RARE (<OCC); URINE BILIRUBIN NEGATIVE (NEGATIVE); URINE BLOOD NEGATIVE (NEGATIVE); URINE CLARITY Hazy (Clear); URINE COLOR Yellow (YELLOW); URINE GLUCOSE (UA) NORMAL (Normal); URINE LEUKOCYTE ESTERASE NEG Leu/uL (Negative); URINE PROTEIN NEGATIVE (NEGATIVE); URINE UROBILINOGEN NORMAL mg/dL (0.2-1.0)
[2018-06-10 05:13] LABS: HCG,QUALITATIVE URINE NEGATIVE (NEGATIVE)
[2018-06-10 05:38] LABS: ALB/GLOB RATIO 1.4 (1.0-2.1); ALBUMIN 4.1 g/dL (3.5-5.0); ALT/SGPT 18 U/L (9-52); AST/SGOT 20 U/L (14-36); BLOOD UREA NITROGEN 11 mg/dL (7-17); CALCIUM 9.1 mg/dl (8.6-10.4); GFR NON-AFRICAN AMERICAN > 60
[2018-06-10] MEDS ORDERED: Iodixanol 320 MG/ML 100 ML BOTTLE IV ONE (05:48)
--- NOTE | 2018-06-10 06:05 | C.PDOC ---
History Of Present Illness 28 year old female with Hx of pancreatitis presents with diffuse abdominal pain associated with nausea and vomiting since yesterday that radiates to her back. Patient states the pain feels similar to past pancreatitis exacerbation. Denies diarrhea, URI, fever, hematuria or dysuria. <Danae Rehman - Last Filed: 06/10/18 06:56> History Per: Patient History/Exam Limitations: no limitations Onset/Duration Of Symptoms: Days (Yesterday) Current Symptoms Are (Timing): Still Present Location Of Pain/Discomfort: Diffuse Radiation Of Pain To:: None Quality Of Discomfort: Unable To Describe Associated Symptoms: Nausea, Vomiting. denies: Fever, Chills, Urinary Symptoms, Other (URI) Exacerbating Factors: None Alleviating Factors: None Recent travel outside of the [place]: No Abnormal Vaginal Bleeding: No <Danae Rehman - Last Filed: 06/10/18 06:56> <Gladys Mercedes - Last Filed: 06/10/18 09:07> Time Seen by Provider: 06/10/18 04:24 Chief Complaint (Nursing): Abdominal Pain Past Medical History Reviewed: Historical Data, Nursing Documentation, Vital Signs Vital Signs: Last Vital Signs Temp 97.5 F L 06/10/18 04:16 Pulse 82 06/10/18 04:16 Resp 20 06/10/18 04:16 BP 115/79 06/10/18 04:16 Pulse Ox 100 06/10/18 04:16 - Medical History PMH: Pancreatitis Denies: Chronic Kidney Disease Surgical History: Endoscopy - [facility] Procedures DILATION OF PANCREATIC DUCT WITH INTRALUMINAL DEVICE, ENDO (10/12/16) DRAINAGE OF PANCREAS WITH DRAIN DEV, PERC ENDO APPROACH (10/12/16) DRAINAGE OF PANCREAS, PERC ENDO APPROACH, DIAGN (10/12/16) EXCISION OF PANCREAS, PERCUTANEOUS ENDOSCOPIC APPROACH (10/12/16) INSPECTION OF UPPER INTESTINAL TRACT, ENDO (10/12/16) REMOVAL OF INTRALUMINAL DEVICE FROM PANCREATIC DUCT, ENDO (10/12/16) Family History: States: Unknown Family Hx - Social History Hx Tobacco Use: No Hx Alcohol Use: No Hx Substance Use: No - Immunization History Hx Tetanus Toxoid Vaccination: No Hx Influenza Vaccination: Yes Hx Pneumococcal Vaccination: No <Danae Rehman - Last Filed: 06/10/18 06:56> Vital Signs: Last Vital Signs Temp 98.8 F 06/10/18 06:34 Pulse 73 06/10/18 06:34 Resp 20 06/10/18 06:34 BP 101/90 06/10/18 06:34 Pulse Ox 100 06/10/18 06:57 - [facility] Procedures DILATION OF PANCREATIC DUCT WITH INTRALUMINAL DEVICE, ENDO (10/12/16) DRAINAGE OF PANCREAS WITH DRAIN DEV, PERC ENDO APPROACH (10/12/16) DRAINAGE OF PANCREAS, PERC ENDO APPROACH, DIAGN (10/12/16) EXCISION OF PANCREAS, PERCUTANEOUS ENDOSCOPIC APPROACH (10/12/16) INSPECTION OF UPPER INTESTINAL TRACT, ENDO (10/12/16) REMOVAL OF INTRALUMINAL DEVICE FROM PANCREATIC DUCT, ENDO (10/12/16) <Gladys Mercedes - Last Filed: 06/10/18 09:07> Review Of Systems Constitutional: Negative for: Fever, Chills ENT: Negative for: Nose Discharge, Nose Congestion Respiratory: Negative for: Cough Gastrointestinal: Positive for: Nausea, Vomiting, Abdominal Pain. Negative for: Diarrhea Genitourinary: Negative for: Dysuria, Hematuria Skin: Negative for: Rash <Danae Rehman - Last Filed: 06/10/18 06:56> Physical Exam - Physical Exam Appears: Non-toxic Skin: Normal Color, Warm Head: Atraumatic, Normacephalic Eye(s): bilateral: Normal Inspection Oral Mucosa: Moist Neck: Normal, Supple Chest: Symmetrical, No Tenderness Cardiovascular: Rhythm Regular Respiratory: Normal Breath Sounds, No Rales, No Rhonchi, No Wheezing Gastrointestinal/Abdominal: Soft, Tenderness (Diffuse), No Guarding, No Rebound Back: No CVA Tenderness Neurological/Psych: Oriented x3, Normal Speech <Danae Rehman - Last Filed: 06/10/18 06:56> ED Course And Treatment - Laboratory Results Result Diagrams: 06/10/18 04:56 06/10/18 04:56 Lab Results: Total Bilirubin 0.3 mg/dL (0.2-1.3) 06/10/18 04:56 AST 20 U/L (14-36) 06/10/18 04:56 ALT 18 U/L (9-52) 06/10/18 04:56 Alkaline Phosphatase 71 U/L (38-126) 06/10/18 04:56 Total Protein 7.1 g/dL (6.3-8.3) 06/10/18 04:56 Albumin 4.1 g/dL (3.5-5.0) 06/10/18 04:56 Globulin 3.0 gm/dL (2.2-3.9) 06/10/18 04:56 Albumin/Globulin Ratio 1.4 (1.0-2.1) 06/10/18 04:56 Urine Color Yellow (YELLOW) 06/10/18 04:56 Urine Clarity Hazy (Clear) 06/10/18 04:56 Urine pH 6.0 (5.0-8.0) 06/10/18 04:56 Ur Specific [place] 1.021 (1.003-1.030) 06/10/18 04:56 Urine Protein Negative mg/dL (NEGATIVE) 06/10/18 04:56 Urine Glucose (UA) Normal mg/dL (Normal) 06/10/18 04:56 Urine Ketones Negative mg/dL (NEGATIVE) 06/10/18 04:56 Urine Blood Negative (NEGATIVE) 06/10/18 04:56 Urine Nitrate Negative (NEGATIVE) 06/10/18 04:56 Urine Bilirubin Negative (NEGATIVE) 06/10/18 04:56 Urine Urobilinogen Normal mg/dL (0.2-1.0) 06/10/18 04:56 Ur Leukocyte Esterase Neg Mina/uL (Negative) 06/10/18 04:56 Urine WBC (Auto) 9 /hpf (0-5) H 06/10/18 04:56 Urine RBC (Auto) 6 /hpf (0-3) H 06/10/18 04:56 Ur Squamous Epith Cells 2 /hpf (0-5) 06/10/18 04:56 Urine Bacteria Rare (<OCC) 06/10/18 04:56 Urine Sperm (Auto) Rare /hpf (NONE) H 06/10/18 04:56 Urine HCG, Qual Negative (NEGATIVE) 06/10/18 04:56 Urine HCG, Qual Negative (NEGATIVE) 06/10/18 04:56 O2 Sat by Pulse Oximetry: 100 (Room air) Pulse Ox Interpretation: Normal Progress Note: Patient appears well, vitals are normal. Labs and CT ordered. Toradol and zofran administered. <Danae Rehman - Last Filed: 06/10/18 06:56> - Laboratory Results Result Diagrams: 06/10/18 04:56 06/10/18 04:56 Lab Results: Total Bilirubin 0.3 mg/dL (0.2-1.3) 06/10/18 04:56 AST 20 U/L (14-36) 06/10/18 04:56 ALT 18 U/L (9-52) 06/10/18 04:56 Alkaline Phosphatase 71 U/L (38-126) 06/10/18 04:56 Total Protein 7.1 g/dL (6.3-8.3) 06/10/18 04:56 Albumin 4.1 g/dL (3.5-5.0) 06/10/18 04:56 Globulin 3.0 gm/dL (2.2-3.9) 06/10/18 04:56 Albumin/Globulin Ratio 1.4 (1.0-2.1) 06/10/18 04:56 Lipase 13163 U/L (23-300) H 06/10/18 04:56 Urine Color Yellow (YELLOW) 06/10/18 04:56 Urine Clarity Hazy (Clear) 06/10/18 04:56 Urine pH 6.0 (5.0-8.0) 06/10/18 04:56 Ur Specific [place] 1.021 (1.003-1.030) 06/10/18 04:56 Urine Protein Negative mg/dL (NEGATIVE) 06/10/18 04:56 Urine Glucose (UA) Normal mg/dL (Normal) 06/10/18 04:56 Urine Ketones Negative mg/dL (NEGATIVE) 06/10/18 04:56 Urine Blood Negative (NEGATIVE) 06/10/18 04:56 Urine Nitrate Negative (NEGATIVE) 06/10/18 04:56 Urine Bilirubin Negative (NEGATIVE) 06/10/18 04:56 Urine Urobilinogen Normal mg/dL (0.2-1.0) 06/10/18 04:56 Ur Leukocyte Esterase Neg Mina/uL (Negative) 06/10/18 04:56 Urine WBC (Auto) 9 /hpf (0-5) H 06/10/18 04:56 Urine RBC (Auto) 6 /hpf (0-3) H 06/10/18 04:56 Ur Squamous Epith Cells 2 /hpf (0-5) 06/10/18 04:56 Urine Bacteria Rare (<OCC) 06/10/18 04:56 Urine Sperm (Auto) Rare /hpf (NONE) H 06/10/18 04:56 Urine HCG, Qual Negative (NEGATIVE) 06/10/18 04:56 Urine HCG, Qual Negative (NEGATIVE) 06/10/18 04:56 - CT Scan/US CT-Abd & Pelv. Other Rad Studies (CT/US): Read By Radiologist, Radiology Report Reviewed CT/US Interpretation: Date of service: 06/10/2018. PROCEDURE: CT Abdomen and Pelvis with contrast. HISTORY: abd pain , h/o pancreatitis. COMPARISON: 03/12/2018. TECHNIQUE: Contrast dose: 100 mL Visipaque 320. Radiation dose: Total exam DLP = 570.33 mGy-cm. This CT exam was performed using one or more of the following dose reduction techniques: Automated exposure control, adjustment of the mA and/or kV according to patient size, and/or use of iterative reconstruction technique. FINDINGS: LOWER THORAX: Unremarkable. LIVER: Unremarkable. No gross lesion or ductal dilatation. GALLBLADDER AND BILE DUCTS: Unremarkable. PANCREAS: Mild AC density about the pancreatic head may reflect focal acute pancreatitis. No eunice peripancreatic fluid collection. There is mild pancreatic ductal dilatation as on the prior examination. No pancreatic mass. SPLEEN: Unremarkable. ADRENALS: Unremarkable. No mass. KIDNEYS AND URETERS: 11 mm right upper pole renal cortical cyst. No calculus or hydronephrosis. VASCULATURE: Unremarkable. No aortic aneurysm. No aortic atherosclerotic calcification or mural plaque present. BOWEL: Unremarkable. No obstruction. No gross mural thickening. APPENDIX: Normal appendix. PERITONEUM: Unremarkable. No free fluid. No free air. LYMPH NODES: Unremarkable. No enlarged lymph nodes. BLADDER: Unremarkable. REPRODUCTIVE: Unremarkable. BONES: The wrist. OTHER FINDINGS: None. IMPRESSION: Possible focal acute pancreatitis involving the pancreatic head. No eunice peripancreatic fluid collection. Mild pancreatic ductal dilatation unchanged from 03/12/2018. Incidental findings as above. The preliminary findings for this examination were reported by [facility] [place] at 7:11 a.m. on 06/10/2018. There is concurrence of this report with the preliminary findings. <Gladys Mercedes - Last Filed: 06/10/18 09:07> Medical Decision Making Medical Decision Making: Updates: 7:20 On re-evaluation, patient continues to have pain. 8:45 CT -Abd & Pelv. shows pancreatitis. CT results discussed with patient. Case discussed with . Patient will be admitted under . <Gladys Mercedes - Last Filed: 06/10/18 09:07> Disposition Counseled Patient/Family Regarding: Diagnosis, Need For Followup - Disposition Disposition Time: 06:57 <Danae Rehman - Last Filed: 06/10/18 06:56> <Gladys Mercedes - Last Filed: 06/10/18 09:07> - Disposition Condition: STABLE Forms: [facility] ([place]ian) - Clinical Impression Clinical Impression: Abdominal pain, Pancreatitis - PA / HUMAN [employer]OURCES OFFICE MANAGER / Resident Statement MD/DO has reviewed & agrees with the documentation as recorded. - Scribe Statement The provider has reviewed the documentation as recorded by the Scribe Nabeel Ryder All medical record entries made by the Scribe were at my direction and personally dictated by me. I have reviewed the chart and agree that the record accurately reflects my personal performance of the history, physical exam, medical decision making, and the department course for this patient. I have also personally directed, reviewed, and agree with the discharge instructions and disposition. <Danae Rehman - Last Filed: 06/10/18 06:56> Physician Patient Turnover Patient Signed Over To: Gladys Mercedes Handoff Comments: Patient is stable, reports minimal pain, pending CT for dispo. <Danae Rehman - Last Filed: 06/10/18 06:56>
[2018-06-10 06:50] LABS: LIPASE 19004 U/L (23-300)
[2018-06-10] MEDS ORDERED: Sodium Chloride 0.9% 1,000 ML IV ONE (06:58)
[2018-06-10] MEDS ORDERED: Sodium Chloride 0.9% 1,000 ML ONE (07:06)
--- NOTE | 2018-06-10 08:37 | CT ---
Date of service: 06/10/2018 PROCEDURE: CT Abdomen and Pelvis with contrast HISTORY: abd pain , h/o pancreatitis COMPARISON: 03/12/2018 TECHNIQUE: Contrast dose: 100 mL Visipaque 320 Radiation dose: Total exam DLP = 570.33 mGy-cm. This CT exam was performed using one or more of the following dose reduction techniques: Automated exposure control, adjustment of the mA and/or kV according to patient size, and/or use of iterative reconstruction technique. FINDINGS: LOWER THORAX: Unremarkable. LIVER: Unremarkable. No gross lesion or ductal dilatation. GALLBLADDER AND BILE DUCTS: Unremarkable. PANCREAS: Mild AC density about the pancreatic head may reflect focal acute pancreatitis. No eunice peripancreatic fluid collection. There is mild pancreatic ductal dilatation as on the prior examination. No pancreatic mass. SPLEEN: Unremarkable. ADRENALS: Unremarkable. No mass. KIDNEYS AND URETERS: 11 mm right upper pole renal cortical cyst. No calculus or hydronephrosis. VASCULATURE: Unremarkable. No aortic aneurysm. No aortic atherosclerotic calcification or mural plaque present. BOWEL: Unremarkable. No obstruction. No gross mural thickening. APPENDIX: Normal appendix. PERITONEUM: Unremarkable. No free fluid. No free air. LYMPH NODES: Unremarkable. No enlarged lymph nodes. BLADDER: Unremarkable. REPRODUCTIVE: Unremarkable. BONES: The wrist OTHER FINDINGS: None. IMPRESSION: Possible focal acute pancreatitis involving the pancreatic head. No eunice peripancreatic fluid collection. Mild pancreatic ductal dilatation unchanged from 03/12/2018. Incidental findings as above. The preliminary findings for this examination were reported by [facility] at 7:11 a.m. on 06/10/2018. There is concurrence of this report with the preliminary findings.
[2018-06-10] MEDS: Dextrose 5%/0.45% NS 1,000 ML IV SCH ×2 (12:44→20:30)
--- NOTE | 2018-06-10 23:45 | CP.PCM.HP ---
Present on Admission - Present on Admission Any Indicators Present on Admission: No Past Patient History - Past Medical History & Family History Past Medical History?: Yes - Past Social History Smoking Status: Never Smoked - CARDIAC Hx Cardiac Disorders: No - PULMONARY Hx Respiratory Disorders: No - NEUROLOGICAL Hx Neurological Disorder: No - HEENT Hx HEENT Problems: No - RENAL Hx Chronic Kidney Disease: No - ENDOCRINE/METABOLIC Hx Endocrine Disorders: No - HEMATOLOGICAL/ONCOLOGICAL Hx Blood Disorders: No - INTEGUMENTARY Hx Dermatological Problems: No - MUSCULOSKELETAL/RHEUMATOLOGICAL Hx Musculoskeletal Disorders: No Hx Falls: No - GASTROINTESTINAL Hx Pancreatitis: Yes - GENITOURINARY/GYNECOLOGICAL Hx Genitourinary Disorders: No - PSYCHIATRIC Hx Substance Use: No - SURGICAL HISTORY Hx Surgeries: No - ANESTHESIA Hx Anesthesia: Yes Hx Anesthesia Reactions: Yes (WAKES UP IN A PANIC) Meds Allergies/Adverse Reactions: Allergies Allergy/AdvReac Type Severity Reaction Status Date / Time Penicillins Allergy ANAPHYLAXIS Verified 03/12/18 15:25 Results - Vital Signs Recent Vital Signs: Last Vital Signs Temp 97.9 F 06/10/18 15:00 Pulse 81 06/10/18 15:00 Resp 20 06/10/18 15:00 BP 99/64 L 06/10/18 15:00 Pulse Ox 99 06/10/18 16:16 - Labs Result Diagrams: 06/10/18 04:56 06/10/18 04:56 Labs: Laboratory Results - last 24 hr 06/10/18 06/10/18 06/10/18 04:56 04:56 04:56 WBC 7.8 D RBC 4.74 Hgb 12.8 Hct 39.5 MCV 83.3 MCH 27.0 MCHC 32.5 L RDW 14.4 Plt Count 333 MPV 8.0 Neut % (Auto) 57.8 Lymph % (Auto) 26.3 [place] % (Auto) 9.1 Eos % (Auto) 6.2 H Baso % (Auto) 0.6 Neut # (Auto) 4.5 Lymph # (Auto) 2.0 Bond # (Auto) 0.7 Eos # (Auto) 0.5 Baso # (Auto) 0.0 Sodium 138 Potassium 4.0 Chloride 105 Carbon Dioxide 27 Anion Gap 10 BUN 11 Creatinine 0.7 Est GFR ( Amer) > 60 Est GFR (Non-Af Amer) > 60 Random Glucose 121 H Calcium 9.1 Total Bilirubin 0.3 AST 20 ALT 18 Alkaline Phosphatase 71 Total Protein 7.1 Albumin 4.1 Globulin 3.0 Albumin/Globulin Ratio 1.4 Lipase 51105 H Urine Color Yellow Urine Clarity Hazy Urine pH 6.0 Ur Specific [place] 1.021 Urine Protein Negative Urine Glucose (UA) Normal Urine Ketones Negative Urine Blood Negative Urine Nitrate Negative Urine Bilirubin Negative Urine Urobilinogen Normal Ur Leukocyte Esterase Neg Urine WBC (Auto) 9 H Urine RBC (Auto) 6 H Ur Squamous Epith Cells 2 Urine Bacteria Rare Urine Sperm (Auto) Rare H Urine HCG, Qual Negative
[2018-06-11] MEDS: Dextrose 5%/0.45% NS 1,000 ML IV SCH ×2 (04:17→13:28)
[2018-06-11 05:21] VITALS: RESP 20
--- NOTE | 2018-06-11 06:53 | HP ---
CHIEF COMPLAINT: Abdominal pain, nausea, vomiting x2 days. HISTORY OF PRESENT ILLNESS: This is a 28-year-old white female well known to me with history of idiopathic pancreatitis in the past with two days onset of abdominal pain, nausea, vomiting. Pain is in the abdomen in the front and radiating to the back associated with nausea and vomiting. She denies any hematemesis, melena, or hematochezia. There is no history of fever, chills, or rigors. She denies any history of dietary noncompliance. No alcohol abuse at all. She did not drink at all. There is no history of cough, sore throat, or runny nose. There is no history of polyuria, polydipsia, or polyphagia. There is no history of hematuria or pyuria. There is no history of sneezing, itchy eyes or itchy nose. PAST MEDICAL HISTORY: Acute pancreatitis. SOCIAL HISTORY: Nonsmoker, non-ETOH user. CURRENT MEDICATIONS: None. PHYSICAL EXAMINATION: GENERAL: A young female, in minimal distress. VITAL SIGNS: Blood pressure 106/67, pulse 72, respiratory rate 20, temperature 97.3. SKIN: Warm, good turgor. No bruises. No purpura. No petechiae. No ecchymosis. HEENT: Atraumatic and normocephalic. Negative pallor. Negative jaundice. Extraocular movements are intact. NECK: Supple. No JVD. No lymph node. No thyromegaly. No carotid bruit. CHEST WALL: Bilateral symmetrical expansion. LUNGS: Bilaterally clear. No rales. No rhonchi. CARDIOVASCULAR SYSTEM: PMI not localized. S1 and S2 regular. No heave. No thrill. ABDOMEN: Soft, nontender. Bowel sounds are positive. RECTAL: No masses. No bleed. EXTREMITIES: No clubbing, cyanosis, or edema. CENTRAL NERVOUS SYSTEM: Awake, alert, and oriented x3. Cranial nerves II through XII are normal. ASSESSMENT: Acute pancreatitis, idiopathic etiology. PLAN: Admit. NPO. IV fluids. Antiemetics. Protonix. Pete Gomes MD
[2018-06-11] MEDS ORDERED: Pneumococcal 23-Valent Vaccine IM ONE (16:30)
[2018-06-11 16:50] VITALS: BP 119/73; PULSE 88; TEMP 97.7; O2SAT 97
--- NOTE | 2018-06-11 17:34 | CP.PCM.PN ---
Subjective - Date & Time of Evaluation Date of Evaluation: 06/11/18 Time of Evaluation: 11:20 - Subjective Subjective: patient seen today, states abdominal pain less and denies any nauseous vss - stable a febrile Objective - Vital Signs/Intake and Output Vital Signs (last 24 hours): Temp Pulse Resp BP Pulse Ox 97.7 F 88 20 119/73 97 06/11/18 15:00 06/11/18 15:00 06/11/18 15:00 06/11/18 15:00 06/11/18 15:00 Intake and Output: 06/11/18 06/11/18 06:59 18:59 Intake Total 1875 Balance 1875 - Medications Medications: Current Medications Dextrose/Sodium Chloride (Dextrose 5%/0.45% Ns 1000 Ml) 1,000 mls @ 125 mls/hr IV .Q8H [facility] Last Admin: 06/11/18 13:28 Dose: 125 mls/hr Ketorolac Tromethamine (Toradol) 30 mg IVP Q8 PRN PRN Reason: Pain, moderate (4-7) Last Admin: 06/10/18 11:38 Dose: 30 mg Morphine Sulfate (Morphine) 2 mg IV Q4 PRN PRN Reason: Pain, severe (8-10) Last Admin: 06/11/18 13:28 Dose: 2 mg Ondansetron HCl (Zofran Inj) 4 mg IVP Q6 PRN PRN Reason: Nausea/Vomiting Pantoprazole Sodium (Protonix Inj) 40 mg IVP DAILY [facility] Last Admin: 06/11/18 09:35 Dose: 40 mg - Labs Labs: 06/10/18 04:56 06/10/18 04:56 Assessment and Plan - Assessment and Plan (Free Text) Assessment: 28 year old female with Hx of pancreatitis presents with diffuse abdominal pain associated with nausea and vomiting admitted with Abdominal pain, and acute Pancreatitis lipase on admission -[id number] lipase repeat today- 102 started on clear diet and tolerated well diet advance to bland diet and tolerated well without any problems D/w Dr. Gomes, cleared for discharge home today and f/u with Dr. Gomes office discharge plan discussed with patient who understands and agrees with plan patient instructed to returns to ED if symptoms recur or any other concerning symptoms
--- NOTE | 2018-06-11 21:55 | CP.PCM.DIS ---
Provider - Provider Date of Admission: 06/10/18 08:43 Attending physician: Pete Gomes MD Consults: 06/10/18 11:50 Gastroenterology Consult Routine Comment: Consulting Provider: Vicki Pina Consulting Physician: Vicki Pina Reason for Consult: pancreatitis Time Spent in preparation of Discharge (in minutes): 30 Hospital Course - Lab Results Lab Results: Most Recent Lab Values WBC 7.8 K/uL (4.8-10.8) D 06/10/18 04:56 RBC 4.74 Mil/uL (3.80-5.20) 06/10/18 04:56 Hgb 12.8 g/dL (11.0-16.0) 06/10/18 04:56 Hct 39.5 % (34.0-47.0) 06/10/18 04:56 MCV 83.3 fL (81.0-99.0) 06/10/18 04:56 MCH 27.0 pg (27.0-31.0) 06/10/18 04:56 MCHC 32.5 g/dL (33.0-37.0) L 06/10/18 04:56 RDW 14.4 % (11.5-14.5) 06/10/18 04:56 Plt Count 333 K/uL (130-400) 06/10/18 04:56 MPV 8.0 fL (7.2-11.7) 06/10/18 04:56 Neut % (Auto) 57.8 % (50.0-75.0) 06/10/18 04:56 Lymph % (Auto) 26.3 % (20.0-40.0) 06/10/18 04:56 [place] % (Auto) 9.1 % (0.0-10.0) 06/10/18 04:56 Eos % (Auto) 6.2 % (0.0-4.0) H 06/10/18 04:56 Baso % (Auto) 0.6 % (0.0-2.0) 06/10/18 04:56 Neut # (Auto) 4.5 K/uL (1.8-7.0) 06/10/18 04:56 Lymph # (Auto) 2.0 K/uL (1.0-4.3) 06/10/18 04:56 [place] # (Auto) 0.7 K/uL (0.0-0.8) 06/10/18 04:56 Eos # (Auto) 0.5 K/uL (0.0-0.7) 06/10/18 04:56 Baso # (Auto) 0.0 K/uL (0.0-0.2) 06/10/18 04:56 Sodium 138 mmol/L (132-148) 06/10/18 04:56 Potassium 4.0 mmol/L (3.6-5.2) 06/10/18 04:56 Chloride 105 mmol/L (98-107) 06/10/18 04:56 Carbon Dioxide 27 mmol/L (22-30) 06/10/18 04:56 Anion Gap 10 (10-20) 06/10/18 04:56 BUN 11 mg/dL (7-17) 06/10/18 04:56 Creatinine 0.7 mg/dL (0.7-1.2) 06/10/18 04:56 Est GFR ( Amer) > 60 06/10/18 04:56 Est GFR (Non-Af Amer) > 60 06/10/18 04:56 Random Glucose 121 mg/dL (65-105) H 06/10/18 04:56 Calcium 9.1 mg/dl (8.6-10.4) 06/10/18 04:56 Total Bilirubin 0.3 mg/dL (0.2-1.3) 06/10/18 04:56 AST 20 U/L (14-36) 06/10/18 04:56 ALT 18 U/L (9-52) 06/10/18 04:56 Alkaline Phosphatase 71 U/L (38-126) 06/10/18 04:56 Total Protein 7.1 g/dL (6.3-8.3) 06/10/18 04:56 Albumin 4.1 g/dL (3.5-5.0) 06/10/18 04:56 Globulin 3.0 gm/dL (2.2-3.9) 06/10/18 04:56 Albumin/Globulin Ratio 1.4 (1.0-2.1) 06/10/18 04:56 Lipase 102 U/L (23-300) 06/11/18 11:38 Urine Color Yellow (YELLOW) 06/10/18 04:56 Urine Clarity Hazy (Clear) 06/10/18 04:56 Urine pH 6.0 (5.0-8.0) 06/10/18 04:56 Ur Specific [place] 1.021 (1.003-1.030) 06/10/18 04:56 Urine Protein Negative mg/dL (NEGATIVE) 06/10/18 04:56 Urine Glucose (UA) Normal mg/dL (Normal) 06/10/18 04:56 Urine Ketones Negative mg/dL (NEGATIVE) 06/10/18 04:56 Urine Blood Negative (NEGATIVE) 06/10/18 04:56 Urine Nitrate Negative (NEGATIVE) 06/10/18 04:56 Urine Bilirubin Negative (NEGATIVE) 06/10/18 04:56 Urine Urobilinogen Normal mg/dL (0.2-1.0) 06/10/18 04:56 Ur Leukocyte Esterase Neg [place]/uL (Negative) 06/10/18 04:56 Urine WBC (Auto) 9 /hpf (0-5) H 06/10/18 04:56 Urine RBC (Auto) 6 /hpf (0-3) H 06/10/18 04:56 Ur Squamous Epith Cells 2 /hpf (0-5) 06/10/18 04:56 Urine Bacteria Rare (<OCC) 06/10/18 04:56 Urine Sperm (Auto) Rare /hpf (NONE) H 06/10/18 04:56 Urine HCG, Qual Negative (NEGATIVE) 06/10/18 04:56 Discharge Plan - Follow Up Plan Condition: STABLE Disposition: HOME/ ROUTINE Instructions: Pancreatitis (DC), [place] Diet, Acute Abdomen (Belly Pain) Additional Instructions: Please f/u with Dr. Gomes office - call and make appointment continue bland diet Referrals: Vicki Pina [Staff Provider] - Pete Gomes MD [Staff Provider] -
[2018-06-12] MEDS ORDERED: Pneumococcal 23-Valent Vaccine IM ONE (10:00)
== END 2018-06-11 17:40 | disposition home or self-care (01) ==
LOC: C.ER 04:07 → C.9E 08:43 → C.5S 10:54
PROVIDERS: ADMIT Internal Medicine; ATTEND Internal Medicine
DX: K85.00 Idiopathic acute pancreatitis without necrosis or infection (principal)
CPT/HCPCS: 36415; 74177; 80053; 81001; 83690; 84703; 85025; 96374; 96375; 96376; 99285; C9113; G0378; J1885; J2270; J2405; J7030; J7042; Q9967